=== PATIENT | male | born 1940 | race Caucasian/White ===

== ENCOUNTER 2016-06-09 07:16 | Day surgery (SDC) | payer OTHER ==
[~2016-06-09] VITALS: Ht 177.8 cm; Wt 77.9 kg
[~2016-06-09 07:16] MED LIST: ATEN50TA PO; HYDR-3533 PO; SIMV20TA PO; XARE20TA PO
[2016-06-09] MEDS ORDERED: ATOR40TA16 PO (07:46)
[2016-06-09] MEDS ORDERED: AMLO10TA2 PO (07:46)
[2016-06-09] MEDS ORDERED: LOSA50TA PO (07:46)
[2016-06-09 07:55] VITALS: BP 153/106; PULSE 82; RESP 16; TEMP 97.5; O2SAT 97
[2016-06-09 08:04] LABS: AUTOMATED NEUTROPHIL # 6.7 TH/MM3 (1.8-7.7); BASOPHIL % 0.2 % (0.0-2.0); EOSINOPHIL # 0.2 TH/MM3 (0-0.4); EOSINOPHIL % 2.1 % (0.0-4.0); HEMATOCRIT 45.4 % (39.0-51.0); HEMO FLAGS DIFF FINAL; LYMPH % 15.5 % (9.0-44.0); LYMPHOCYTE # 1.4 TH/MM3 (1.0-4.8); MEAN CORPUSCULAR HEMOGLOBIN 30.8 PG (27.0-34.0); MEAN CORPUSCULAR HGB CONC 33.8 % (32.0-36.0); MONO % 9.6 % (0.0-8.0); NEUT % 72.6 % (16.0-70.0); PLATELET COUNT 175 TH/MM3 (150-450); RED BLOOD COUNT 4.98 MIL/MM3 (4.50-5.90); RED CELL DISTRIBUTION WIDTH 14.1 % (11.6-17.2); WHITE BLOOD COUNT 9.3 TH/MM3 (4.0-11.0)
[2016-06-09 08:11] LABS: APTT (PATIENT) 27.3 SEC (24.3-30.1); PROTHROMBIN TIME - PATIENT 11.2 SEC (9.8-11.6)
[2016-06-09] MEDS ORDERED: NS 1000P @30 MLS/HR (KVO) IV SCH (08:15)
[2016-06-09] MEDS ORDERED: diphenhydrAMINE HCL 50 MG CAP PO SCH (08:15)
[2016-06-09 08:24] LABS: BICARBONATE 23.7 MEQ/L (21.0-32.0); POTASSIUM 3.8 MEQ/L (3.5-5.1)
[2016-06-09] MEDS ORDERED: HEPARIN-NS/PF INJ 500 ML ONE (11:22)
[2016-06-09] MEDS ORDERED: MIDAZOLAM HCL 2 MG/2 ML VIAL ONE (11:35)
[2016-06-09] MEDS ORDERED: HEPARIN SODIUM - IV 10,000 UNITS/10 ML VIAL ONE (12:01)
[2016-06-09] MEDS ORDERED: PROTAMINE SULFATE 50 MG/5 ML VIAL ONE (12:32)
[2016-06-09] MEDS ORDERED: LABETALOL HCL 100 MG/20 ML VIAL ONE (12:38)
[2016-06-09] MEDS ORDERED: ONDANSETRON HCL 4 MG/2 ML VIAL IV PRN (13:00)
[2016-06-09] MEDS ORDERED: ATROPINE SULFATE 1 MG/ML VIAL IV PRN (13:00)
[2016-06-09] MEDS ORDERED: SODIUM CHLORIDE 0.9% FLUSH 5 ML FLUSH IVF PRN (13:00)
[2016-06-09] MEDS ORDERED: MISC INFORMATION XX ONE (13:00)
--- NOTE | 2016-06-09 13:25 | MA ---
cc: LEONARDA MARION DATE: 06/09/2016 DATE OF : 1940 PROCEDURE PERFORMED 1. Left heart catheterization. 2. Selective right and left coronary angiography. 3. Left ventriculogram. INDICATION Positive nuclear stress test. PROCEDURE DESCRIPTION The consent was signed. The patient was brought into the cardiac laborer wrecking and salvaging in a fasting state. The right groin was prepped and draped in a sterile fashion. Using 1% lidocaine for local anesthesia and a micropuncture kit, a 5-German sheath was inserted into the right common femoral artery. Right common femoral artery angiography was performed to confirm position of the sheath. Then selective right and left coronary angiography was performed with a JR4 and a JL4. Angiography was taken in multiple views and an angled pigtail was introduced over a wire to the ventricle followed by pressure recordings, ventriculography and pullback. The patient tolerated the procedure well without complications. Estimated blood loss was less than 30 cc. Total contrast used was 100 cc. RESULTS LEFT VENTRICULOGRAPHY The left ventricular pressure was 149/19 with an LVEDP of 18. The aortic pressure was 157/105 with a mean of 129. The left ventricle has an anterior wall hypokinesis with ejection fraction estimated at 40-45%. CORONARY ANGIOGRAPHY 1. The right coronary artery is dominant giving off the PDA. The right coronary artery is patent with ALEC-III flow and nonobstructive coronary artery disease. The PDA is also patent and is giving collaterals to the LAD through the septals. 2. The left main is patent and long with nonobstructive coronary artery disease. 3. The LAD is 100% occluded after the first septal. The mid and distal LAD are filled with collaterals that come from the right coronary artery. Distally the LAD is transapical and it seems to be free of disease. 4. The circumflex is patent with nonobstructive CAD and ALEC-III flow. There is a prominent OM1 which is also patent with nonobstructive coronary artery disease. CONCLUSIONS 1. Single-vessel coronary artery disease. 2. LV systolic dysfunction. RECOMMENDATIONS Continue aggressive medical management for coronary artery disease. The patient will referred to CT surgery for consideration of bypass surgery, GUPTA to the LAD. Leonarda Marion MD SENIOR PAYROLL MANAGER/BT /12:55 PM /1:07 PM [email or web address]
[2016-06-09] MEDS ORDERED: oxyCODONE/ACETAMINOPHEN 5 MG/325 MG TAB PO ONE (14:00)
[2016-06-09] MEDS ORDERED: SODIUM CHLORIDE 0.9% FLUSH 5 ML FLUSH IV FLUSH PRN (14:30)
[2016-06-09] MEDS ORDERED: IOHEXOL 350 MG/ML 50 ML BTL (for Cath Lab) OTHER ONE (14:47)
[2016-06-09] MEDS ORDERED: IOHEXOL 350 MG/ML 100 ML BTL (for Cath Lab) OTHER ONE (14:47)
--- NOTE | 2016-06-09 14:59 | PD.CAR.PN ---
CVT Progress Note Subjective/Hospital Course: sts data discussed with pt RISK SCORES About the STS Risk Calculator Procedure: CAB Only Risk of Mortality: 1.2% Morbidity or Mortality: 10.725% Long Length of Stay: 3.887% Short Length of Stay: 49.191% Permanent Stroke: 0.603% Prolonged Ventilation: 5.897% DSW Infection: 0.286% Renal Failure: 1.71% Reoperation: 5.117% Objective: Vital Signs Date Time Temp Pulse Resp B/P Pulse Ox O2 Delivery O2 Flow Rate FiO2 06/09/16 14:56 Room Air 06/09/16 07:55 97.5 82 16 153/106 97 Labs: Laboratory Tests Test 06/09/16 07:15 White Blood Count 9.3 TH/MM3 (4.0-11.0) Red Blood Count 4.98 MIL/MM3 (4.50-5.90) Hemoglobin 15.3 GM/DL (13.0-17.0) Hematocrit 45.4 % (39.0-51.0) Mean Corpuscular Volume 91.0 FL (80.0-100.0) Mean Corpuscular Hemoglobin 30.8 PG (27.0-34.0) Mean Corpuscular Hemoglobin 33.8 % Concent (32.0-36.0) Red Cell Distribution Width 14.1 % (11.6-17.2) Platelet Count 175 TH/MM3 (150-450) Mean Platelet Volume 8.7 FL (7.0-11.0) Neutrophils (%) (Auto) 72.6 % (16.0-70.0) Lymphocytes (%) (Auto) 15.5 % (9.0-44.0) Monocytes (%) (Auto) 9.6 % (0.0-8.0) Eosinophils (%) (Auto) 2.1 % (0.0-4.0) Basophils (%) (Auto) 0.2 % (0.0-2.0) Neutrophils # (Auto) 6.7 TH/MM3 (1.8-7.7) Lymphocytes # (Auto) 1.4 TH/MM3 (1.0-4.8) Monocytes # (Auto) 0.9 TH/MM3 (0-0.9) Eosinophils # (Auto) 0.2 TH/MM3 (0-0.4) Basophils # (Auto) 0.0 TH/MM3 (0-0.2) CBC Comment DIFF FINAL Differential Comment Prothrombin Time 11.2 SEC (9.8-11.6) Prothromb Time International 1.0 RATIO Ratio Activated Partial 27.3 SEC Thromboplast Time (24.3-30.1) Sodium Level 142 MEQ/L (136-145) Potassium Level 3.8 MEQ/L (3.5-5.1) Chloride Level 109 MEQ/L (98-107) Carbon Dioxide Level 23.7 MEQ/L (21.0-32.0) Anion Gap 9 MEQ/L (5-15) Blood Urea Nitrogen 23 MG/DL (7-18) Creatinine 1.02 MG/DL (0.60-1.30) Estimat Glomerular Filtration 71 ML/MIN (>89) Rate Random Glucose 100 MG/DL (74-106) Calcium Level 8.7 MG/DL (8.5-10.1) Result Diagram: 06/09/16 0715 06/09/16 0715 Isabella Wolfe Jun 09, 2016 14:59
[2016-06-09 16:44] LABS: BLOOD, URINE NEG (NEG); GLUCOSE,URINE NEG (NEG); KETONE, URINE NEG (NEG); MUCUS URINE FEW /lpf (OCC); PH, URINE 5.5 (5.0-8.5); URINE COLOR YELLOW (YELLW/STRAW)
[2016-06-09 16:50] LABS: COMMENT (UR) CATH-CULTURE IND; CULTURE IF INDICATED CATH CULTURE IND; NITRITE,URINE POS (NEG)
--- NOTE | 2016-06-09 17:30 | RADRPT ---
EXAM DATE/TIME: 06/09/2016 16:03 [facility] COMPARISON: No previous studies available for comparison. INDICATIONS : Preop cardiac surgery. MEDICAL HISTORY : Hypercholesterolemia. Hypertension. Renal calculi. Glaucoma. CAD. Dyspnea. Gallstones. Depression. SURGICAL HISTORY : Surgery for kidney stone removal/uretheral stent placement. Left knee surgery. ENCOUNTER: Initial ACUITY: 1 day PAIN SCORE: 4/10 LOCATION: Bilateral neck PEAK SYSTOLIC VELOCITIES (cm/sec): ICA/CCA RATIO: Right: 1.2 Left: 0.8 ICA: Right: 40 Left: 41 CCA: Right: 33 Left: 54 ECA: Right: 49 Left: 50 VERTEBRAL: Right: 37 antegrade Left: 23 antegrade Elevated flow velocities and ICA/CCA ratios have been found to correlate with increased degrees of vessel stenosis, calculated as percentage of diameter relative to a normal segment of distal ICA/CCA FINDINGS: Ultrasound of the carotid arteries was performed bilaterally using real-time Doppler and color Dopple r imaging. Examination of the right carotid artery demonstrates mild fibrous plaque within the bifurcation. No w aveform abnormalities are identified and no spectral broadening is seen. Examination of the left granados tid artery demonstrates mild fibrous plaque within the bulb. No waveform abnormalities are identified and no spectral broadening is seen. There is antegrade flow in both vertebral arteries. CONCLUSION: No evidence of hemodynamically significant lesion. Ilir Thakkar MD on June 09, 2016 at 17:28 Board Certified Radiologist. This report was verified electronically.
--- NOTE | 2016-06-09 17:33 | RADRPT ---
EXAM DATE/TIME: 06/09/2016 17:09 [facility] COMPARISON: CHEST PA & LAT, July 15, 2014, 9:48. INDICATIONS : Pre op for CABG. MEDICAL HISTORY : Unobtainable SURGICAL HISTORY : unobtainable ENCOUNTER: Initial ACUITY: 1 day PAIN SCORE: Non-responsive. LOCATION: Bilateral upper chest FINDINGS: Mild left base atelectasis. Otherwise, mild diffuse interstitial prominence. No pleural effusion seen . No pneumothorax. Heart size stable, mildly enlarged. CONCLUSION: Suspected mild acute failure. Also mild left base atelectasis. Manohar Camilo MD on June 09, 2016 at 17:30 Board Certified Radiologist. This report was verified electronically.
--- NOTE | 2016-06-09 18:28 | EKG ---
Date Performed: 06/09/2016 Time Performed: 07:56:24 PTAGE: 75 years EKG: Atrial fibrillation Possible septal infarct - age undetermined Abnormal ECG PREVIOUS TRACING : 08/04/2014 07.44 DOCTOR: Francesco Kaplan Interpretating Date/Time 06/09/2016 18:26:48
[2016-06-09] MEDS ORDERED: SODIUM CHLORIDE 0.9% FLUSH 5 ML FLUSH IVF SCH (21:00)
[2016-06-09] MEDS ORDERED: SODIUM CHLORIDE 0.9% FLUSH 5 ML FLUSH IV FLUSH SCH (21:00)
--- NOTE | 2016-06-10 08:55 | MB ---
cc: NI VICTOR DATE OF CONSULTATION: 06/09/2016 HISTORY OF PRESENT ILLNESS A 75-year-old male who speaks only Kazakh, from [place]. His is at the bedside to assist with translation, followed by Dr. Lyndon Cheung, history of atrial fibrillation, hyperlipidemia, hypertension. He has been complaining of some mild to moderate chest discomfort that started a few weeks ago that lasts only minutes, felt like it was indigestion and non-radiating, not associated with stress, meals, denied any shortness of breath, palpitations. Risk factors include age, hypertension, former smoker, hyperlipidemia. The patient underwent cardiac cath today by Dr. Crook for a positive stress test and had 100% proximal LAD, EF of 40%. Prior to that he also had a 2-D echocardiogram in the office which showed left atrium moderately dilated, mild to moderate aortic regurgitation, mitral valve had some moderate regurgitation with an eccentric jet, mild regurgitation in the tricuspid valve, RV pressures at 34 mmHg, EF on the echo showed 55-60, grade 3 diastolic dysfunction. PAST MEDICAL HISTORY 1. Hypertension. 2. Hyperlipidemia. 3. Atrial fibrillation on Xarelto. PAST SURGICAL HISTORY 1. Right arm surgery. 2. Bladder surgery. 3. Left knee arthroscopic surgery. ALLERGIES No known allergies. MEDICATION Home meds include: 1. Amlodipine 10 p.o. daily. 2. Flexeril p.r.n. 3. Losartan 50 p.o. daily. 4. Omeprazole. 5. Simvastatin. 6. Xarelto 20 p.o. daily. 7. Flomax. FAMILY HISTORY Father from pneumonia at age 112. Mother at age 70 from pneumonia. The patient is , has three children. Originally from [place]. Worked in the [employer] business. Smoked for approximately 20 years, quit 32 years ago. REVIEW OF SYSTEMS GENERAL: No night sweats, fever, heat and cold intolerance. SKIN: No psoriasis, itching or hives. HEENT: No blurred vision, hearing loss. RESPIRATORY: No cough, shortness of breath. CARDIOVASCULAR: As above in HPI. GASTROINTESTINAL: No diarrhea, vomiting. GENITOURINARY: No burning, frequency, urgency. BALANCE WHEEL MOTION INSPECTOR: No history of TIA, CVA, seizure disorder. ENDOCRINOLOGY: No history of diabetes and/or hypothyroidism. PHYSICAL EXAMINATION VITAL SIGNS: Blood pressure 150/100, heart rate of 82, afebrile. GENERAL: Patient is awake, alert, in no acute distress. HEENT: Head is normocephalic, atraumatic. Pupils equal and reactive. Oral mucosa pink, moist. NECK: Supple. No JVD. CARDIAC: Heart sounds S1-S2. A grade 2-3/6 systolic murmur best known to the left sternal border. LUNGS: Clear to auscultation. No wheezes, rales or rhonchi. ABDOMEN: Soft, nontender. No masses or organomegaly. EXTREMITIES: No cyanosis, clubbing or edema. LABORATORY DATA Lab work shows hemoglobin of 15, hematocrit of 45, white cell count 9.3, platelet count 175. Sodium 142, potassium 3.8, BUN of 23, creatinine 1.02. IMPRESSION This is a 75-year-old male with positive stress test and underwent cardiac cath with a proximal LAD stenosis of 100%, EF of 40%. Procedures, alternatives and risks to be discussed by Dr. Ni Victor. He will see the patient in the office in the a.m. to schedule for pending surgery. Will also obtained the 2-D echo disk from [facility] to evaluate in lieu of this moderate mitral regurgitation. STS data will be discussed and documented in the electronic record. Dictated by: JEROME Heath MD JACQUELIN Mccoy/TRUONG /2:46 PM /8:43 AM
--- NOTE | 2016-06-10 13:15 | EKG ---
Date Performed: 06/09/2016 Time Performed: 15:05:50 PTAGE: 75 years EKG: Atrial fibrillation with slow ventricular response Poor R wave progression - probable shantanu l variant Extensive ST-T changes are nonspecific T WAVE FLATTENING NEW SINCE THE PRIOR TRACING Abnorm al ECG PREVIOUS TRACING : 06/09/2016 07.56 DOCTOR: Elier Henderson Interpretating Date/Time 06/10/2016 13:14:09
[2016-06-10 14:53] LABS: HEMOGLOBIN A1a 0.9 %; HEMOGLOBIN A1b 1.4 %; HEMOGLOBIN Ao 87.4 %; HEMOGLOBIN LA1C 1.3 %; HEMOGLOBIN P3 3.5 %
--- NOTE | 2016-06-24 10:10 | RSPPFT ---
DATE OF PROCEDURE: 06/09/16 COMMENTS: Spirometry with FVC of 2.6, FEV1 of 2.1, FEV1/FVC ratio at 79%. IMPRESSION: 1. Mild reduction in flow rates. 2. No evidence of airways obstruction. 3. If clinically warranted, lung volumes may be helpful.
== END 2016-06-09 18:00 | disposition home or self-care (01) ==
LOC: HDIC 07:16 → HDOC 07:16
PROVIDERS: ATTEND Radiology Vascular & Interventional Radiology
DX: I25.10 Atherosclerotic heart disease of native coronary artery without angina pectoris (principal); I48.91 Unspecified atrial fibrillation; I34.0 Nonrheumatic mitral (valve) insufficiency; I25.82 Chronic total occlusion of coronary artery; I10 Essential (primary) hypertension; E78.5 Hyperlipidemia, unspecified; Z79.01 Long term (current) use of anticoagulants; Z79.899 Other long term (current) drug therapy
CPT/HCPCS: 71020; 80048; 81001; 83036; 85025; 85610; 85730; 87086; 87641; 93005; 93458; 93880; 94010; C1760; C1769; C1887; C1893; G0269; J1644; J2250; J2720; J3010; Q9967

== ENCOUNTER 2016-06-15 15:00 | Inpatient (IN) | payer OTHER, MEDICARE ==
[~2016-06-15] VITALS: Ht 177.8 cm; Wt 80.3 kg
[~2016-06-15 15:00] MED LIST changes: +AMLO10TA2 PO; -ATEN50TA PO; +ATOR40TA16 PO; -HYDR-3533 PO; +LOSA50TA PO; -SIMV20TA PO
[2016-06-22] VITALS (20 sets, daily range): BP systolic 115–149; BP diastolic 67–108; PULSE 62–94; RESP 16–20; TEMP 97.4–98.2; O2SAT 94–98
[2016-06-22] MEDS ORDERED: PROTAMINE SULFATE 250 MG/25 ML VIAL IV ONE ×2 (05:00→10:02)
[2016-06-22] MEDS ORDERED: MAGNESIUM SULFATE 1000 MG/2 ML VIAL (PED) IV ONE (05:00)
[2016-06-22] MEDS ORDERED: AMINOCAPROIC ACID INJ 250 MG/ML 20 ML VIAL IV ONE (05:00)
[2016-06-22] MEDS ORDERED: DEXMEDETOMIDINE INJ 50 ML IV ONE (05:00)
[2016-06-22] MEDS ORDERED: DEXTROSE 5% IN WATER 100ML INJ 100 ML IV ONE (05:00)
[2016-06-22] MEDS ORDERED: PHENYLEPHRINE HCL 10 MG/ML VIAL IV ONE (05:00)
[2016-06-22] MEDS ORDERED: CALCIUM CHLORIDE 10% SOLN 1 GRAM/10 ML SYR IV ONE (05:00)
[2016-06-22] MEDS ORDERED: HEPARIN SODIUM - SQ 10,000 UNITS/ML VIAL SQ ONE (05:00)
[2016-06-22] MEDS ORDERED: VANCOMYCIN HCL 1000 MG VIAL ONE (06:10)
[2016-06-22] MEDS ORDERED: ceFAZolin 2 GM PREMIX 50 ML ONE (06:10)
[2016-06-22] MEDS ORDERED: methylPREDNISolone SOD SUCC 125 MG/2 ML VIAL ONE (06:11)
[2016-06-22] MEDS ORDERED: HEPARIN SODIUM - SQ 10,000 UNITS/ML VIAL ONE (06:11)
[2016-06-22] MEDS: LACTATED RINGER'S 1000 ML IV SCH (06:15)
[2016-06-22] MEDS ORDERED: METOPROLOL TARTRATE 25 MG TAB ONE (06:23)
[2016-06-22] MEDS ORDERED: PERC10TA27 PO (06:28)
[2016-06-22] MEDS ORDERED: PAPAVERINE 60 MG-NITROGLYCERIN 100 MCG-DILTIAZEM 100 MG in NS 100 ML IRRIGATION SCH ×4 (06:45)
[2016-06-22] MEDS ORDERED: CHLORHEXIDINE GLUCONATE 4% SOLN 120 ML BTL TOPICAL SCH (06:45)
[2016-06-22] MEDS ORDERED: CEFAZOLIN 500 MG in NS IRR BTL 500 ML IRRIGATION SCH (06:45)
[2016-06-22] MEDS ORDERED: ceFAZolin 2 GM PREMIX 50 ML IV SCH (06:45)
[2016-06-22] MEDS ORDERED: METOPROLOL TARTRATE 25 MG TAB PO SCH (06:45)
[2016-06-22] MEDS ORDERED: INSULIN REGULAR 100 UNITS in NS 100 ML IV SCH (06:45)
[2016-06-22] MEDS ORDERED: SODIUM CHLORIDE 0.9% FLUSH 10 ML FLUSH IV FLUSH PRN ×2 (06:45)
[2016-06-22] MEDS: SODIUM CHLORID 0.9% 500 ML IV SCH ×3 (06:45→20:48)
[2016-06-22] MEDS ORDERED: INSULIN HUMAN REGULAR 1,000 UNITS/10 ML VIAL SQ PRN (06:45)
[2016-06-22] MEDS ORDERED: ALBUMIN HUMAN 25% 12.5 GM/50 ML BAGP IV ONE (07:03)
[2016-06-22] MEDS ORDERED: CARDIOPLEGIC IRR 1,000 ML ONE (07:03)
[2016-06-22] MEDS ORDERED: SODIUM BICARBONATE 8.4% INJ 50 ML ONE (07:04)
[2016-06-22] MEDS ORDERED: MANNITOL INJ 50 ML ONE (07:04)
[2016-06-22] MEDS ORDERED: HEPARIN SODIUM - IV 10,000 UNITS/10 ML VIAL ONE (07:04)
[2016-06-22] MEDS ORDERED: CALCIUM CHLORIDE 10% SOLN 1 GRAM/10 ML SYR ONE (07:05)
[2016-06-22] MEDS ORDERED: POTASSIUM CHLORIDE 20 MEQ/10 ML VIAL ONE ×2 (07:05)
[2016-06-22] MEDS: MUPIROCIN 2% OINT 22 GM TUBE EACH NARE SCH ×2 (09:00→21:00)
[2016-06-22] MEDS ORDERED: LACTATED RINGER'S 1000 ML INJ 500 ML IV PRN (10:08)
[2016-06-22] MEDS ORDERED: POTASSIUM CHLOR 20 MEQ PREMIX 100 ML IV PRN ×3 (10:15)
[2016-06-22] MEDS ORDERED: hydrALAZINE HCL 20 MG/ML VIAL IV PRN (10:15)
[2016-06-22] MEDS ORDERED: POTASSIUM CHLORIDE 20 MEQ CONTROLLED RELEASE TAB PO PRN ×2 (10:15)
[2016-06-22] MEDS ORDERED: METOPROLOL TARTRATE 5 MG/5 ML VIAL IV PUSH PRN (10:15)
[2016-06-22] MEDS ORDERED: ONDANSETRON HCL 4 MG/2 ML VIAL IV PUSH PRN (10:15)
[2016-06-22] MEDS ORDERED: INSULIN REGULAR (IV INFUSION) 100 UNITS in SODIUM CHLORIDE 0.9% INJ 99 ML IV SCH (10:15)
[2016-06-22] MEDS ORDERED: MAGNESIUM SULFATE INJ 2 GM in SODIUM CHLORIDE 0.9% INJ 100 ML IV PRN ×4 (10:15)
[2016-06-22] MEDS ORDERED: Post-op Orders (for Pharmacy) MISC OTHER ONE (10:15)
[2016-06-22] MEDS ORDERED: ACETAMINOPHEN 325 MG TAB PO PRN (10:15)
[2016-06-22] MEDS ORDERED: SODIUM CHLORIDE 0.9% FLUSH 10 ML FLUSH IVF PRN (10:15)
[2016-06-22] MEDS ORDERED: CALCIUM CHLORIDE 10% 1 GRAM/10 ML VIAL IV PRN (10:15)
[2016-06-22] MEDS ORDERED: ACETAMINOPHEN 650 MG SUPP RECTAL PRN (10:15)
[2016-06-22] MEDS ORDERED: DEXTROSE 50% IN WATER 50 ML VIAL(D50) IV PUSH PRN (10:15)
--- NOTE | 2016-06-22 10:17 | PD.OP ---
cc: Francesco Kaplan MD; Ni Victor MD Operative Report Date of Surgery: Jun 22, 2016 Preoperative Diagnosis: (1) CAD (coronary artery disease) (2) IL, acute, non ST segment elevation Postoperative Diagnosis: same Procedure: CABG x 1 GUPTA to LAD Anesthesia: Dr. Thompson Surgeon: Ni Victor Biomedical Engineering Professor(s): Noé Tse Operation and Findings: The risks, benefits, complications, treatment options, and expected outcomes were discussed with the patient. The possibilities of reaction to medication, pulmonary aspiration, perforation of viscus, bleeding, recurrent infection, the need for additional procedures, failure to diagnose a condition, and creating a complication requiring transfusion or operation were discussed with the patient. The patient concurred with the proposed plan, giving informed consent. The site of surgery properly noted/marked. The patient was taken to Operating Room, identified as Fortunato Fleitas and the procedure verified as CABG, ANA. A Time Out was held and the above information confirmed. Standard monitoring lines and Espino catheter were placed. General anesthesia was induced. The patient was prepped and draped in a sterile fashion. A median sternotomy was performed and electrocautery was used to obtain hemostasis. The left internal mammary artery was procured as a pedicle from the 7th rib to the 1st rib in the usual manner. The patient was heparinized for cardiopulmonary bypass and the distal mammary pedicle was instrumented for anastomosis. The heart was instrumented for cardiopulmonary bypass in the usual manner. Antegrade blood cardioplegia was employed. The patient was placed on cardiopulmonary bypass. An aortic cross-clamp was applied and the heart was arrested using cold blood cardioplegia. Antegrade cardioplegia was administered after he each anastomosis. After adequate arrest, the distal LAD was opened with a [place] blade and found to be a 1.5 millimeter good target. The left internal mammary artery was approximated to the LAD using a running 7 0 Prolene suture. The pedicle was attached to the epicardium using interrupted 5 0 silk suture. The patient was systemically rewarmed and received a hotshot dose of warm blood cardioplegia. The cross-clamp was removed and all proximal and distal anastomoses were examined for hemostasis. The patient was weaned from cardiopulmonary bypass. Protamine was given. There was no adverse reaction. Decannulation was carried out without incident. Wound was checked for hemostasis which was obtained using electrocautery. A 36 German mediastinal and 32 German left pleural chest was were placed and secured to the skin with 0 silk suture. The sternum was closed with stainless steel wire. The fascia was closed with 1. PDS. The subcutaneous tissue was closed using a running 2-0 Vicryl suture. The skin was closed with 4-0 Monocryl. Sterile dressings were placed. At the end of the operation, all sponge, instruments, and needle counts were correct. The patient was transferred to the CICU in stable condition. Findings: good distal target. Moderate MR and mild AI noted on ANA which has been asymptomatic with normal filling pressures. XC: 14 min CPB: 23 min Drains: mediastinal x 1 pleural x1 Complications: none Disposition: to CVICU in stable condition Ni Victor MD Jun 22, 2016 10:17
[2016-06-22] MEDS ORDERED: MIDAZOLAM HCL 5 MG/5 ML VIAL ONE ×2 (11:07)
[2016-06-22] MEDS ORDERED: fentaNYL CITRATE 1000 MCG/20 ML VIAL ONE (11:08)
[2016-06-22] MEDS: ACETAMINOPHEN 1000 MG/100 ML VIAL IV SCH ×2 (11:43→16:40)
[2016-06-22] MEDS ORDERED: CALCIUM CHLORIDE INJ 1 GM in SODIUM CHLORIDE 0.9% INJ 100 ML IV PRN (12:00)
[2016-06-22] MEDS ORDERED: CLEVIDIPINE INJ 50 ML IV SCH (12:00)
--- NOTE | 2016-06-22 12:22 | RADRPT ---
EXAM DATE/TIME: 06/22/2016 11:25 [facility] COMPARISON: CHEST SINGLE AP, February 11, 2013, 13:17. INDICATIONS : Status post CABG. MEDICAL HISTORY: None. SURGICAL HISTORY: None. ENCOUNTER: Initial ACUITY: 1 day PAIN SCORE: 8/10 LOCATION: Bilateral chest FINDINGS: The endotracheal tube has its tip in good position 2-3 cm above the tomer. A nasogastric tube has i ts tip below the diaphragm. Mediastinal drain and left chest tube are in good positions. There is n o pneumothorax. A right internal jugular vascular sheath and catheter are noted with its tip in the superior vena cava. Median sternotomy wires are noted status post cardiac surgery. The heart is min imally prominent. The pulmonary vascular pattern is normal. The lungs are relatively clear with minim al bibasilar atelectasis noted. CONCLUSION: 1. Multiple tubes and lines are in good positions. 2. Mild cardiomegaly. 3. Minimal bibasilar atelectasis. Dereje Aranda MD on June 22, 2016 at 12:03 Board Certified Radiologist. This report was verified electronically.
[2016-06-22] MEDS ORDERED: RESP: RACEPINEPHRINE 2.25% 0.5 ML NEB NEB PRN (15:15)
[2016-06-22] MEDS ORDERED: RESP: ALBUTEROL 2.5 MG/IPRATROPIUM 0.5 MG NEB (PRN) NEB (15:15)
[2016-06-22] MEDS: RESP: ALBUTEROL 2.5 MG/IPRATROPIUM 0.5 MG NEB (SCH) NEB ×2 (16:22→21:28)
[2016-06-22] MEDS: SODIUM CHLORIDE 0.9% FLUSH 10 ML FLUSH IV FLUSH SCH (20:48)
[2016-06-22] MEDS: ATORVASTATIN 40 MG TAB PO SCH (20:48)
[2016-06-23] VITALS (15 sets, daily range): BP systolic 103–131; BP diastolic 66–90; PULSE 64–98; RESP 17–18; TEMP 97–98.7; O2SAT 92–97
[2016-06-23] MEDS: ACETAMINOPHEN 1000 MG/100 ML VIAL IV SCH ×2 (00:46→05:24)
--- NOTE | 2016-06-23 02:56 | RADRPT ---
EXAM DATE/TIME: 06/23/2016 02:31 [facility] COMPARISON: CHEST SINGLE AP, June 22, 2016, 11:25. INDICATIONS : Shortness of breath. MEDICAL HISTORY : None. SURGICAL HISTORY : CABG. ENCOUNTER: Initial ACUITY: 1 day PAIN SCORE: Non-responsive. LOCATION: Bilateral chest FINDINGS: Left chest tube, mediastinal tube and right jugular lines are again noted. Sternotomy wires are seen. There is patchy left lower lobe airspace disease. A tiny left apical pneumothorax is noted. CONCLUSION: Tiny left apical pneumothorax suspected. Left lower lobe airspace disease. Gerard Ramirez MD on June 23, 2016 at 2:54 Board Certified Radiologist. This report was verified electronically.
[2016-06-23] MEDS: RESP: ALBUTEROL 2.5 MG/IPRATROPIUM 0.5 MG NEB (SCH) NEB ×3 (03:25→21:10)
[2016-06-23] MEDS: LACTATED RINGER'S 1000 ML IV SCH (04:59)
[2016-06-23 05:22] LABS: HEMATOCRIT 40.4 % (39.0-51.0); MEAN CELL VOLUME 91.5 FL (80.0-100.0); MEAN CORPUSCULAR HEMOGLOBIN 30.4 PG (27.0-34.0); MEAN CORPUSCULAR HGB CONC 33.3 % (32.0-36.0); PLATELET COUNT 128 TH/MM3 (150-450); RED BLOOD COUNT 4.41 MIL/MM3 (4.50-5.90); RED CELL DISTRIBUTION WIDTH 13.7 % (11.6-17.2); REVIEW FLAG FINAL; WHITE BLOOD COUNT 15.2 TH/MM3 (4.0-11.0)
[2016-06-23] MEDS: oxyCODONE/ACETAMINOPHEN 10 MG/325 MG TAB PO PRN ×3 (05:24→20:59)
[2016-06-23] MEDS: PANTOPRAZOLE SOD 40 MG DELAYED RELEASE TAB PO SCH (05:24)
[2016-06-23 05:55] LABS: BICARBONATE 22.1 MEQ/L (21.0-32.0); MAGNESIUM 1.9 MG/DL (1.5-2.5); POTASSIUM 4.4 MEQ/L (3.5-5.1)
[2016-06-23] MEDS ORDERED: MAGNESIUM SULFATE 1 GM PREMIX 100 ML ONE (07:28)
[2016-06-23] MEDS: SODIUM CHLORIDE 0.9% FLUSH 10 ML FLUSH IV FLUSH SCH ×2 (09:00→20:59)
[2016-06-23] MEDS ORDERED: GLUCAGON 1 MG/ML VIAL OTHER PRN (09:00)
[2016-06-23] MEDS: MUPIROCIN 2% OINT 22 GM TUBE EACH NARE SCH ×2 (09:00→21:00)
[2016-06-23] MEDS ORDERED: DEXTROSE 50% IN WATER 50 ML VIAL(D50) IV PRN (09:00)
[2016-06-23] MEDS ORDERED: BISACODYL 10 MG SUPP RECTAL PRN (09:00)
[2016-06-23] MEDS ORDERED: SOD PHOSPHATE/SOD BIPHOSPHATE (ADULT) ENEMA 133ML RECTAL PRN (09:00)
[2016-06-23] MEDS: ASPIRIN 81 MG CHEW TAB PO SCH (09:01)
--- NOTE | 2016-06-23 09:17 | EKG ---
Date Performed: 06/23/2016 Time Performed: 05:43:52 PTAGE: 75 years EKG: Sinus rhythm with PAC(s) Inferior T wave changes are nonspecific Borderline ECG PREVIOUS TRACING : 06/09/2016 15.05 DOCTOR: Bi Saprks Interpretating Date/Time 06/23/2016 09:16:33
[2016-06-23] MEDS ORDERED: PILL SPLITTER OTHER PRN (09:45)
[2016-06-23] MEDS: METOPROLOL TARTRATE 25 MG TAB PO SCH ×2 (09:52→20:59)
[2016-06-23] MEDS: MULTIVITAMINS/MINERALS THERAPEUTIC TAB PO SCH (09:52)
[2016-06-23] MEDS: INSULIN ASPART SUPPLEMENTAL SCALE SQ SCH ×4 (09:52→21:21)
[2016-06-23] MEDS: MAGNESIUM HYDROXIDE SUSP 30 ML CUP PO SCH (09:53)
[2016-06-23] MEDS ORDERED: FUROSEMIDE 20 MG/2 ML VIAL IV PUSH ONE (10:00)
[2016-06-23] MEDS ORDERED: POTASSIUM CHLORIDE 10 MEQ CONTROLLED RELEASE TAB PO ONE (10:00)
--- NOTE | 2016-06-23 16:21 | PD.CAR.PN ---
CVT Progress Note CVT: POD #: 1 Subjective/Hospital Course: 75/ male c/o of chest pain couple of weeks , indigestion -like quality , underwent Heart cath 100% LAD EF 40% PMH: chronic AFIB ( on xarelto at home) , HLP, HTN , mod MR surgery 06/22 CABG x 1 GUPTA to LAD 06/23 doing well, up in chair, no pressors rhythm stable / afib rate controlled on nasal cannula will transfer to stepdown unit Objective: GENERAL: SKIN: Warm and dry./ prevena dressing to chest HEAD: Normocephalic. EYES: No scleral icterus. No injection or drainage. NECK: Supple, trachea midline. No JVD or lymphadenopathy. CARDIOVASCULAR: Regular rate and rhythm without murmurs, gallops, or rubs. RESPIRATORY: Breath sounds equal bilaterally. No accessory muscle use. GASTROINTESTINAL: Abdomen soft, non-tender, nondistended. MUSCULOSKELETAL: No cyanosis, or edema. BACK: Nontender without obvious deformity. No CVA tenderness. Vital Signs Date Time Temp Pulse Resp B/P Pulse Ox O2 Delivery O2 Flow Rate FiO2 06/23/16 15:31 84 06/23/16 15:30 98.0 95 18 109/73 92 06/23/16 12:00 95 Nasal Cannula 4.00 06/23/16 11:02 98.2 95 18 116/66 92 06/23/16 11:02 95 06/23/16 09:08 Arterial Line 06/23/16 08:58 98.2 80 17 104/68 94 120/78 06/23/16 08:00 95 Nasal Cannula 5.00 06/23/16 07:18 92 Nasal Cannula 5.00 06/23/16 07:00 98.3 81 18 103/66 92 117/68 06/23/16 07:00 71 06/23/16 04:00 95 Nasal Cannula 4.00 06/23/16 03:00 98.0 90 17 120/77 95 128/71 06/23/16 03:00 92 06/23/16 00:00 95 Nasal Cannula 4.00 06/22/16 23:37 98.2 93 17 136/73 95 115/68 06/22/16 23:37 85 06/22/16 21:31 95 Nasal Cannula 5.00 06/22/16 20:28 95 Nasal Cannula 4.00 06/22/16 19:17 98.0 94 18 135/92 95 119/67 06/22/16 19:00 94 06/22/16 18:14 76 06/22/16 17:10 14 06/22/16 17:02 76 06/22/16 16:22 95 Nasal Cannula 4.00 Labs: Laboratory Tests Test 06/23/16 04:31 White Blood Count 15.2 TH/MM3 (4.0-11.0) Red Blood Count 4.41 MIL/MM3 (4.50-5.90) Hemoglobin 13.4 GM/DL (13.0-17.0) Hematocrit 40.4 % (39.0-51.0) Mean Corpuscular Volume 91.5 FL (80.0-100.0) Mean Corpuscular Hemoglobin 30.4 PG (27.0-34.0) Mean Corpuscular Hemoglobin 33.3 % Concent (32.0-36.0) Red Cell Distribution Width 13.7 % (11.6-17.2) Platelet Count 128 TH/MM3 (150-450) Mean Platelet Volume 9.2 FL (7.0-11.0) Sodium Level 141 MEQ/L (136-145) Potassium Level 4.4 MEQ/L (3.5-5.1) Chloride Level 108 MEQ/L (98-107) Carbon Dioxide Level 22.1 MEQ/L (21.0-32.0) Anion Gap 11 MEQ/L (5-15) Blood Urea Nitrogen 21 MG/DL (7-18) Creatinine 0.95 MG/DL (0.60-1.30) Estimat Glomerular Filtration 77 ML/MIN (>89) Rate Random Glucose 123 MG/DL (74-106) Calcium Level 8.5 MG/DL (8.5-10.1) Magnesium Level 1.9 MG/DL (1.5-2.5) Result Diagram: 06/23/1643006/23/16430 Telemetry: afib (1) Hyperlipemia (2) CAD (coronary artery disease) (3) S/P CABG x 1 Plan: ASA, statin , BB pulm toileting, OOB ambulate gentle diuresis (4) Hyperlipemia Plan: on statin (5) Hypertension Plan: controlled Isabella Wolfe Jun 23, 2016 16:21
[2016-06-23] MEDS: KETOROLAC TROMETHAMINE 30 MG/ML (IVP) VIAL IV PUSH PRN (17:41)
[2016-06-23] MEDS: DOCUSATE SODIUM 100 MG CAP PO SCH (20:59)
[2016-06-23] MEDS: ATORVASTATIN 40 MG TAB PO SCH (20:59)
[2016-06-23] MEDS: SENNOSIDES 8.6 MG TAB PO SCH (20:59)
[2016-06-24] VITALS (31 sets, daily range): BP systolic 108–182; BP diastolic 70–112; PULSE 61–112; RESP 17–18; TEMP 97.3–98.9; O2SAT 94–98
[2016-06-24] MEDS: KETOROLAC TROMETHAMINE 30 MG/ML (IVP) VIAL IV PUSH PRN ×3 (01:40→16:23)
[2016-06-24] MEDS: INSULIN ASPART SUPPLEMENTAL SCALE SQ SCH ×5 (02:00→20:57)
[2016-06-24] MEDS: PANTOPRAZOLE SOD 40 MG DELAYED RELEASE TAB PO SCH (05:45)
[2016-06-24] MEDS: oxyCODONE/ACETAMINOPHEN 10 MG/325 MG TAB PO PRN ×3 (05:49→20:53)
[2016-06-24 06:49] LABS: AUTOMATED NEUTROPHIL # 10.3 TH/MM3 (1.8-7.7); BASOPHIL % 0.2 % (0.0-2.0); EOSINOPHIL # 0.1 TH/MM3 (0-0.4); HEMATOCRIT 35.7 % (39.0-51.0); HEMO FLAGS DIFF FINAL; LYMPH % 8.1 % (9.0-44.0); MEAN CELL VOLUME 91.9 FL (80.0-100.0); MEAN CORPUSCULAR HEMOGLOBIN 30.1 PG (27.0-34.0); MEAN CORPUSCULAR HGB CONC 32.7 % (32.0-36.0); MONO % 10.9 % (0.0-8.0); NEUT % 79.8 % (16.0-70.0); PLATELET COUNT 116 TH/MM3 (150-450); RED BLOOD COUNT 3.89 MIL/MM3 (4.50-5.90); RED CELL DISTRIBUTION WIDTH 13.8 % (11.6-17.2); WHITE BLOOD COUNT 12.9 TH/MM3 (4.0-11.0)
[2016-06-24 07:06] LABS: BICARBONATE 28.3 MEQ/L (21.0-32.0); MAGNESIUM 2.2 MG/DL (1.5-2.5); POTASSIUM 4.1 MEQ/L (3.5-5.1)
[2016-06-24] MEDS: RESP: ALBUTEROL 2.5 MG/IPRATROPIUM 0.5 MG NEB (SCH) NEB ×3 (07:38→19:32)
[2016-06-24] MEDS: MUPIROCIN 2% OINT 22 GM TUBE EACH NARE SCH ×2 (09:00→20:48)
[2016-06-24] MEDS: SODIUM CHLORIDE 0.9% FLUSH 10 ML FLUSH IV FLUSH SCH ×2 (09:00→20:54)
[2016-06-24] MEDS: POLYETHYLENE GLYCOL 17 GM PKG PO SCH (09:47)
[2016-06-24] MEDS: MULTIVITAMINS/MINERALS THERAPEUTIC TAB PO SCH (09:48)
[2016-06-24] MEDS: DOCUSATE SODIUM 100 MG CAP PO SCH ×2 (09:48→20:54)
[2016-06-24] MEDS: ASPIRIN 81 MG CHEW TAB PO SCH (09:48)
[2016-06-24] MEDS: MAGNESIUM HYDROXIDE SUSP 30 ML CUP PO SCH (09:48)
[2016-06-24] MEDS: METOPROLOL TARTRATE 25 MG TAB PO SCH ×2 (09:49→20:53)
--- NOTE | 2016-06-24 10:44 | PD.CAR.PN ---
CVT Progress Note CVT: POD #: 2 Subjective/Hospital Course: 75/ male c/o of chest pain couple of weeks , indigestion -like quality , underwent Heart cath 100% LAD EF 40% PMH: chronic AFIB ( on xarelto at home) , HLP, HTN , mod MR surgery 06/22 CABG x 1 GUPTA to LAD 06/23 doing well, up in chair, no pressors rhythm stable / afib rate controlled on nasal cannula will transfer to stepdown unit 06/24 remains in afib leave chest tube in today/ drained 180cc/ 12 hrs start xarelto when chest tubes out OOB/ ambulate pulm toileting Objective: GENERAL: SKIN: Warm and dry./ prevena to chest / HEAD: Normocephalic. EYES: No scleral icterus. No injection or drainage. NECK: Supple, trachea midline. No JVD or lymphadenopathy. CARDIOVASCULAR: Regular rate and rhythm without murmurs, gallops, or rubs. RESPIRATORY:diminished in bases / chest tube to wall suction/ no air leak Breath sounds equal bilaterally. No accessory muscle use. GASTROINTESTINAL: Abdomen soft, non-tender, nondistended. MUSCULOSKELETAL: No cyanosis, or edema. BACK: Nontender without obvious deformity. No CVA tenderness. Vital Signs Date Time Temp Pulse Resp B/P Pulse Ox O2 Delivery O2 Flow Rate FiO2 06/24/16 07:38 96 Nasal Cannula 4.00 06/24/16 06:16 74 06/24/16 05:00 72 06/24/16 04:55 73 06/24/16 04:40 97.5 70 108/70 96 06/24/16 03:17 Nasal Cannula 4.00 40 06/24/16 03:00 61 06/24/16 02:00 66 06/24/16 01:00 68 06/24/16 00:00 68 06/23/16 23:00 Nasal Cannula 4.00 40 06/23/16 23:00 68 06/23/16 23:00 98.7 64 113/69 97 06/23/16 22:00 76 06/23/16 21:13 94 Nasal Cannula 4.00 06/23/16 21:00 90 06/23/16 20:00 80 06/23/16 19:00 93 06/23/16 19:00 98.4 84 131/90 95 06/23/16 19:00 Nasal Cannula 4.00 40 06/23/16 18:03 75 06/23/16 17:00 97.0 78 125/89 93 06/23/16 17:00 98 06/23/16 16:00 95 Nasal Cannula 4.00 06/23/16 15:31 84 06/23/16 15:30 98.0 95 18 109/73 92 06/23/16 12:00 95 Nasal Cannula 4.00 06/23/16 11:02 98.2 95 18 116/66 92 06/23/16 11:02 95 Labs: Laboratory Tests Test 06/24/16 06:00 White Blood Count 12.9 TH/MM3 (4.0-11.0) Red Blood Count 3.89 MIL/MM3 (4.50-5.90) Hemoglobin 11.7 GM/DL (13.0-17.0) Hematocrit 35.7 % (39.0-51.0) Mean Corpuscular Volume 91.9 FL (80.0-100.0) Mean Corpuscular Hemoglobin 30.1 PG (27.0-34.0) Mean Corpuscular Hemoglobin 32.7 % Concent (32.0-36.0) Red Cell Distribution Width 13.8 % (11.6-17.2) Platelet Count 116 TH/MM3 (150-450) Mean Platelet Volume 9.0 FL (7.0-11.0) Neutrophils (%) (Auto) 79.8 % (16.0-70.0) Lymphocytes (%) (Auto) 8.1 % (9.0-44.0) Monocytes (%) (Auto) 10.9 % (0.0-8.0) Eosinophils (%) (Auto) 1.0 % (0.0-4.0) Basophils (%) (Auto) 0.2 % (0.0-2.0) Neutrophils # (Auto) 10.3 TH/MM3 (1.8-7.7) Lymphocytes # (Auto) 1.0 TH/MM3 (1.0-4.8) Monocytes # (Auto) 1.4 TH/MM3 (0-0.9) Eosinophils # (Auto) 0.1 TH/MM3 (0-0.4) Basophils # (Auto) 0.0 TH/MM3 (0-0.2) CBC Comment DIFF FINAL Differential Comment Sodium Level 139 MEQ/L (136-145) Potassium Level 4.1 MEQ/L (3.5-5.1) Chloride Level 103 MEQ/L (98-107) Carbon Dioxide Level 28.3 MEQ/L (21.0-32.0) Anion Gap 8 MEQ/L (5-15) Blood Urea Nitrogen 27 MG/DL (7-18) Creatinine 0.99 MG/DL (0.60-1.30) Estimat Glomerular Filtration 73 ML/MIN (>89) Rate Random Glucose 108 MG/DL (74-106) Calcium Level 8.5 MG/DL (8.5-10.1) Magnesium Level 2.2 MG/DL (1.5-2.5) Result Diagram: 06/24/16 0600 06/24/16 0600 Telemetry: afib rate controlled (1) Hyperlipemia (2) CAD (coronary artery disease) (3) S/P CABG x 1 Plan: ASA, statin , BB pulm toileting, OOB ambulate gentle diuresis (4) Hyperlipemia Plan: on statin (5) Hypertension Plan: controlled Isabella Wolfe Jun 24, 2016 10:44
[2016-06-24] MEDS ORDERED: FUROSEMIDE 20 MG/2 ML VIAL IV PUSH ONE (10:45)
[2016-06-24] MEDS ORDERED: POTASSIUM CHLORIDE 10 MEQ CONTROLLED RELEASE TAB PO ONE (10:45)
[2016-06-24] MEDS ORDERED: hydrALAZINE HCL 20 MG/ML VIAL IV PUSH PRN (15:00)
[2016-06-24] MEDS: LOSARTAN 25 MG TAB PO SCH (15:22)
[2016-06-24] MEDS: TAMSULOSIN HCL 0.4 MG CAP PO SCH (16:23)
[2016-06-24 16:28] LABS: BLOOD, URINE MOD (NEG); GLUCOSE,URINE NEG (NEG); KETONE, URINE NEG (NEG); NITRITE,URINE NEG (NEG); URINE COLOR LIGHT-YELLOW (YELLW/STRAW)
[2016-06-24 16:29] LABS: COMMENT (UR) CATH-CULT NOT IND; CULTURE IF INDICATED CATH CULTURE NOT IND
[2016-06-24] MEDS: ATORVASTATIN 40 MG TAB PO SCH (20:53)
[2016-06-24] MEDS: SENNOSIDES 8.6 MG TAB PO SCH (20:53)
[2016-06-25] VITALS (27 sets, daily range): BP systolic 106–140; BP diastolic 68–93; PULSE 59–96; RESP 16–20; TEMP 97.4–98.1; O2SAT 94–96
[2016-06-25] MEDS: oxyCODONE/ACETAMINOPHEN 10 MG/325 MG TAB PO PRN ×3 (06:06→22:35)
[2016-06-25] MEDS: PANTOPRAZOLE SOD 40 MG DELAYED RELEASE TAB PO SCH (06:07)
[2016-06-25] MEDS: INSULIN ASPART SUPPLEMENTAL SCALE SQ SCH ×4 (06:25→21:00)
[2016-06-25] MEDS: RESP: ALBUTEROL 2.5 MG/IPRATROPIUM 0.5 MG NEB (SCH) NEB (07:41)
[2016-06-25] MEDS: SODIUM CHLORIDE 0.9% FLUSH 10 ML FLUSH IV FLUSH SCH ×2 (09:00→21:00)
[2016-06-25] MEDS: MUPIROCIN 2% OINT 22 GM TUBE EACH NARE SCH (09:00)
[2016-06-25] MEDS: MAGNESIUM HYDROXIDE SUSP 30 ML CUP PO SCH (09:00)
[2016-06-25] MEDS: POLYETHYLENE GLYCOL 17 GM PKG PO SCH (09:01)
[2016-06-25] MEDS: DOCUSATE SODIUM 100 MG CAP PO SCH ×2 (09:02→21:45)
[2016-06-25] MEDS: MULTIVITAMINS/MINERALS THERAPEUTIC TAB PO SCH (09:02)
[2016-06-25] MEDS: LOSARTAN 25 MG TAB PO SCH (09:02)
[2016-06-25] MEDS: TAMSULOSIN HCL 0.4 MG CAP PO SCH (09:02)
[2016-06-25] MEDS: ASPIRIN 81 MG CHEW TAB PO SCH ×2 (09:03→12:21)
[2016-06-25] MEDS: KETOROLAC TROMETHAMINE 30 MG/ML (IVP) VIAL IV PUSH PRN ×2 (09:04→15:12)
[2016-06-25] MEDS: METOPROLOL TARTRATE 25 MG TAB PO SCH ×2 (09:04→21:46)
--- NOTE | 2016-06-25 12:42 | PD.CONS ---
[facility] Service Urology Consult Requested By Primary Care Physician Lyndon Cheung MD Diagnosis: History of Present Illness 75-year-old male status post CABG. Postoperatively, patient has developed urinary retention with hematuria. His urinalysis presently clear. Approximately 1500 cc was drained from the bladder once the Espino catheter was inserted last night. The patient does admit to a history of nocturia 5-6 times with a weak stream and incomplete emptying. No history of prostate cancers noted. Review of Systems Constitutional: DENIES: Diaphoretic episodes Endocrine: DENIES: Heat/cold intolerance Ears, nose, mouth, throat: DENIES: Tinnitus Gastrointestinal: DENIES: Abdominal pain Musculoskeletal: DENIES: Joint pain Integumentary: DENIES: Abnormal pigmentation Hematologic/lymphatic: DENIES: Bruising Immunologic/allergic: DENIES: Eczema Neurologic: DENIES: Abnormal gait Past Family Social History Past Medical History Hypertension Hyperlipidemia Atrial fibrillation Coronary artery disease Past Surgical History Left knee surgery Right arm surgery Allergies: Coded Allergies: No Known Allergies (Verified , 06/22/16) Family History Mother with pneumonia No family history of prostate cancers noted Social History History of smoking in the past Physical Exam Vital Signs Date Time Temp Pulse Resp B/P Pulse Ox O2 Delivery O2 Flow Rate FiO2 06/25/16 07:43 96 21 06/25/16 06:00 76 06/25/16 05:00 74 06/25/16 04:51 69 06/25/16 03:40 82 06/25/16 03:26 Nasal Cannula 4.00 95 06/25/16 03:25 80 121/84 95 06/25/16 02:00 68 06/25/16 01:00 74 06/25/16 00:00 74 06/24/16 23:39 98.9 90 121/84 97 06/24/16 23:00 80 06/24/16 23:00 Nasal Cannula 4.00 95 06/24/16 22:00 84 06/24/16 21:00 98 06/24/16 20:00 96 06/24/16 19:32 94 Nasal Cannula 4.00 06/24/16 19:00 91 06/24/16 19:00 Nasal Cannula 3.00 06/24/16 19:00 106 122/73 95 06/24/16 18:04 94 06/24/16 17:00 98 06/24/16 16:15 147/89 06/24/16 16:00 112 06/24/16 15:00 101 06/24/16 15:00 83 182/112 95 06/24/16 15:00 95 Nasal Cannula 3.00 06/24/16 14:08 99 06/24/16 13:00 80 Physical Exam GENERAL: This is a well-nourished, well-developed patient, in no apparent distress. SKIN: No rashes, ecchymoses or lesions. Cool and dry. HEAD: Atraumatic. Normocephalic. No temporal or scalp tenderness. EYES: Pupils equal round and reactive. Extraocular motions intact. No scleral icterus. No injection or drainage. ENT: Nose without bleeding, purulent drainage or septal hematoma. Throat without erythema, tonsillar hypertrophy or exudate. Uvula midline. Airway patent. NECK: Trachea midline. No JVD or lymphadenopathy. Supple, nontender, no meningeal signs. CARDIOVASCULAR: Regular rate and rhythm without murmurs, gallops, or rubs. Dressing and place. RESPIRATORY: Clear to auscultation. Breath sounds equal bilaterally. No wheezes , rales, or rhonchi. GASTROINTESTINAL: Abdomen soft, non-tender, nondistended. No hepato-splenomegaly , or palpable masses. No guarding. GENITOURINARY: Normal phallus testes descended with Espino catheter in place. Urine is now clear. MUSCULOSKELETAL: Extremities without clubbing, cyanosis, or edema. No joint tenderness, effusion, or edema noted. No calf tenderness. Negative Homans sign bilaterally. NEUROLOGICAL: Awake and alert. Cranial nerves II through XII intact. Motor and sensory grossly within normal limits. Five out of 5 muscle strength in all muscle groups. Normal speech. Laboratory Tests Test 06/24/16 15:55 Urine Color LIGHT-YELLOW Urine Turbidity CLEAR Urine pH 5.0 Urine Specific [place] 1.005 Urine Protein NEG Urine Glucose (UA) NEG Urine Ketones NEG Urine Occult Blood MOD Urine Nitrite NEG Urine Bilirubin NEG Urine Urobilinogen LESS THAN 2.0 Urine Leukocyte Esterase NEG Urine RBC 71 Urine WBC 1 Microscopic Urinalysis Comment CATH-CULT NOT IND Result Diagram: 06/24/16 0600 06/24/16 0600 Imaging Last Impressions Chest X-Ray 06/23/16 0500 Signed Impressions: Service Date/Time: Thursday, June 23, 2016 02:31 - CONCLUSION: Tiny left apical pneumothorax suspected. Left lower lobe airspace disease. Gerard Ramirez MD Assessment and Plan Assessment and Plan 75-year-old male status post CABG with symptoms of BPH with obstruction and acute urinary retention. Hematuria has resolved after bladder decompression. Continue Flomax 0.4 mg by mouth daily at bedtime Continue out of bed with ambulation. Wean narcotics as appropriate. Void trial in the near future after Flomax reaches a steady state. Thank you for the consult. Neo Magana DO Jun 25, 2016 12:42
[2016-06-25] MEDS ORDERED: RIVAROXABAN 20 MG TAB PO SCH (18:15)
--- NOTE | 2016-06-25 18:15 | PD.CAR.PN ---
CVT Progress Note Subjective/Hospital Course: 75/ male c/o of chest pain couple of weeks , indigestion -like quality , underwent Heart cath 100% LAD EF 40% PMH: chronic AFIB ( on xarelto at home) , HLP, HTN , mod MR surgery 06/22 CABG x 1 GUPTA to LAD 06/23 doing well, up in chair, no pressors rhythm stable / afib rate controlled on nasal cannula will transfer to stepdown unit 06/24 remains in afib leave chest tube in today/ drained 180cc/ 12 hrs start xarelto when chest tubes out OOB/ ambulate pulm toileting 06/25 chest tube removed without difficulty [place] cath replaced 05/06 urinary retention/ also hematuria appreciate urology input/ now on flomax resume xarelto this pm, hx of chronic afib family requesting SNF ( pt lives alone) Objective: GENERAL: only speaks spainish SKIN: Warm and dry./ prevena to chest HEAD: Normocephalic. EYES: No scleral icterus. No injection or drainage. NECK: Supple, trachea midline. No JVD or lymphadenopathy. CARDIOVASCULAR: Regular rate and rhythm without murmurs, gallops, or rubs. RESPIRATORY: Breath sounds equal bilaterally. No accessory muscle use. GASTROINTESTINAL: Abdomen soft, non-tender, nondistended. MUSCULOSKELETAL: No cyanosis, or edema. BACK: Nontender without obvious deformity. No CVA tenderness. : salam[place] cath in place hematuria improving Vital Signs Date Time Temp Pulse Resp B/P Pulse Ox O2 Delivery O2 Flow Rate FiO2 06/25/16 15:00 97.4 86 16 106/68 95 06/25/16 15:00 96 06/25/16 14:00 66 06/25/16 13:33 67 06/25/16 12:00 60 06/25/16 12:00 96 Room Air 06/25/16 12:00 97.9 78 17 126/74 96 06/25/16 11:00 59 06/25/16 10:00 66 06/25/16 09:00 68 06/25/16 08:00 84 06/25/16 07:43 96 21 06/25/16 07:15 97.7 89 17 116/83 94 06/25/16 07:00 69 06/25/16 07:00 93 Room Air 06/25/16 06:00 76 06/25/16 05:00 74 06/25/16 04:51 69 06/25/16 03:40 82 06/25/16 03:26 Nasal Cannula 4.00 95 06/25/16 03:25 80 121/84 95 06/25/16 02:00 68 06/25/16 01:00 74 06/25/16 00:00 74 06/24/16 23:39 98.9 90 121/84 97 06/24/16 23:00 80 06/24/16 23:00 Nasal Cannula 4.00 95 06/24/16 22:00 84 06/24/16 21:00 98 06/24/16 20:00 96 06/24/16 19:32 94 Nasal Cannula 4.00 06/24/16 19:00 91 06/24/16 19:00 Nasal Cannula 3.00 06/24/16 19:00 106 122/73 95 Result Diagram: 06/24/16 0600 06/24/16 0600 Cardiovascular: afib (1) CAD (coronary artery disease) (2) S/P CABG x 1 Plan: ASA, statin , BB pulm toileting, OOB ambulate (3) Hyperlipemia Plan: on statin (4) Hypertension Plan: controlled (5) Urinary retention Plan: on flomax, [place] cath replaced urology following Isabella Wolfe Jun 25, 2016 18:15
--- NOTE | 2016-06-25 18:41 | RADRPT ---
EXAM DATE/TIME: 06/25/2016 18:16 [facility] COMPARISON: CHEST SINGLE AP, June 23, 2016, 2:31. INDICATIONS : Chest tube removal, evaluate for pneumothorax. MEDICAL HISTORY : None. SURGICAL HISTORY : CABG. ENCOUNTER: Initial ACUITY: 1 day PAIN SCORE: 5/10 LOCATION: Bilateral chest FINDINGS: Thoracostomy tubes have been removed. There is no evidence of pneumothorax. Right central line has al so been removed. Mild basilar parenchymal opacities persist unchanged. Cardiac contours are grossly s table. CONCLUSION: Thoracostomy tube removal without complication Manohar Valadez MD on June 25, 2016 at 18:39 Board Certified Radiologist. This report was verified electronically.
[2016-06-25] MEDS: ATORVASTATIN 40 MG TAB PO SCH (21:45)
[2016-06-25] MEDS: SENNOSIDES 8.6 MG TAB PO SCH (21:45)
[2016-06-26] VITALS (15 sets, daily range): BP systolic 109–139; BP diastolic 73–96; PULSE 64–100; RESP 16–20; TEMP 98.2–99.3; O2SAT 94–96
[2016-06-26] MEDS: KETOROLAC TROMETHAMINE 30 MG/ML (IVP) VIAL IV PUSH PRN ×2 (01:16→13:54)
[2016-06-26] MEDS: oxyCODONE/ACETAMINOPHEN 10 MG/325 MG TAB PO PRN ×3 (04:00→16:06)
[2016-06-26] MEDS: PANTOPRAZOLE SOD 40 MG DELAYED RELEASE TAB PO SCH (06:29)
[2016-06-26] MEDS: INSULIN ASPART SUPPLEMENTAL SCALE SQ SCH ×2 (07:00→11:44)
[2016-06-26] MEDS: SODIUM CHLORIDE 0.9% FLUSH 10 ML FLUSH IV FLUSH SCH (09:00)
[2016-06-26] MEDS ORDERED: RIVAROXABAN 20 MG TAB PO SCH (09:00)
[2016-06-26] MEDS: ASPIRIN 81 MG CHEW TAB PO SCH (09:03)
[2016-06-26] MEDS: POLYETHYLENE GLYCOL 17 GM PKG PO SCH (09:03)
[2016-06-26] MEDS: TAMSULOSIN HCL 0.4 MG CAP PO SCH (09:03)
[2016-06-26] MEDS: MAGNESIUM HYDROXIDE SUSP 30 ML CUP PO SCH (09:03)
[2016-06-26] MEDS: MULTIVITAMINS/MINERALS THERAPEUTIC TAB PO SCH (09:04)
[2016-06-26] MEDS: LOSARTAN 25 MG TAB PO SCH (09:04)
[2016-06-26] MEDS: DOCUSATE SODIUM 100 MG CAP PO SCH (09:04)
[2016-06-26] MEDS: METOPROLOL TARTRATE 25 MG TAB PO SCH (09:04)
--- NOTE | 2016-06-26 10:12 | HHI.PR ---
Subjective Patient symptoms today Pt seen and examined. OOB in chair Objective Vital Signs Vital Signs Date Time Temp Pulse Resp B/P Pulse Ox O2 Delivery O2 Flow Rate FiO2 06/26/16 10:00 75 06/26/16 09:00 87 06/26/16 08:00 100 06/26/16 07:00 82 06/26/16 07:00 98.6 97 20 136/91 95 06/26/16 05:00 80 06/26/16 05:00 16 06/26/16 04:00 80 06/26/16 03:00 78 06/26/16 03:00 98.3 90 20 139/96 94 06/26/16 02:15 20 06/26/16 02:00 76 06/26/16 01:00 70 06/26/16 00:00 74 06/25/16 23:00 78 06/25/16 23:00 98.1 73 20 140/93 96 06/25/16 22:00 82 06/25/16 21:00 78 06/25/16 20:00 86 06/25/16 19:00 84 06/25/16 19:00 98.1 75 20 129/90 96 06/25/16 18:31 90 06/25/16 17:00 80 06/25/16 16:00 84 06/25/16 15:00 97.4 86 16 106/68 95 06/25/16 15:00 96 06/25/16 14:00 66 06/25/16 13:33 67 06/25/16 12:00 60 06/25/16 12:00 96 Room Air 06/25/16 12:00 97.9 78 17 126/74 96 06/25/16 11:00 59 Intake & Output 06/26/16 06/26/16 07:00 19:00 Intake Total 640 ml Output Total 751 ml Balance -111 ml Intake Oral 640 ml Output Urine Total 750 ml Stool Total 1 ml Result Diagram: 06/24/1659906/24/16599 Objective Remarks Abd:soft,nt,nd Espino: urine clear Medications and IVs Current Medications Medications (Trade) Dose Ordered Sig/Dimas Route Start Time Stop Time Status Last Admin (NS Flush) 2 ml BID IV FLUSH 06/22/16 21:00 06/26/16 09:00 (NS Flush) 2 ml UNSCH PRN IVF 06/22/16 10:15 (Aspirin Chew) 81 mg DAILY PO 06/23/16 09:00 06/26/16 09:03 (Protonix) 40 mg DAILY@06 PO 06/23/16 06:00 06/26/16 06:29 (Tylenol) 650 mg Q4H PRN PO 06/22/16 10:15 Ondansetron HCl 4 mg 4 mg Q6H PRN IV PUSH 06/22/16 10:15 Magnesium Sulfate 2 gm/Sodium Chloride 104 ml @ 100 mls/hr UNSCH PRN IV 06/22/16 10:15 (Magnesium Sulfate Inj/NS Inj) 104 ml @ 50 mls/hr UNSCH PRN IV 06/22/16 10:15 06/23/16 07:37 (Lipitor) 40 mg HS PO 06/22/16 21:00 06/25/16 21:45 (Percocet 10-325 Mg) 1 tab Q6HR PRN PO 06/22/16 10:15 06/26/16 04:00 (Colace) 100 mg BID PO 06/23/16 21:00 06/26/16 09:04 (Theragran M Tab) 1 tab DAILY PO 06/23/16 10:00 06/26/16 09:04 (Milk Of Magnesia Liq) 30 ml DAILY PO 06/23/16 10:00 06/26/16 09:03 (Miralax) 17 gm DAILY PO 06/24/16 09:00 06/26/16 09:03 (Senokot) 8.6 mg HS PO 06/23/16 21:00 06/25/16 21:45 (Fleets Enema (Adult)) 133 ml UNSCH PRN RECTAL 06/23/16 09:00 (D50w (Vial) Inj) 25 ml UNSCH PRN IV 06/23/16 09:00 (Glucagon Inj) 1 mg UNSCH PRN OTHER 06/23/16 09:00 (NovoLOG SUPPLEMENTAL SCALE) 1 ACHS SQ 06/24/16 11:00 06/25/16 17:53 (Pill Splitter) 1 ea UNSCH PRN OTHER 06/23/16 09:45 (Toradol Inj) 15 mg Q6H PRN IV PUSH 06/23/16 17:00 06/28/16 16:59 06/26/16 01:16 (Lopressor) 25 mg BID PO 06/24/16 21:00 06/26/16 09:04 (Cozaar) 25 mg DAILY PO 06/24/16 15:00 06/26/16 09:04 (Apresoline Inj) 10 mg Q4H PRN IV PUSH 06/24/16 15:00 06/24/16 15:22 (Flomax) 0.4 mg DAILY PO 06/24/16 15:45 06/26/16 09:03 (Xarelto) 20 mg DAILY PO 06/26/16 09:00 06/26/16 09:03 Assessment and Plan Assessment and Plan 75-year-old male status post CABG with symptoms of BPH with obstruction and acute urinary retention. Hematuria has resolved after bladder decompression. Continue Flomax 0.4 mg by mouth daily at bedtime Continue out of bed with ambulation. Wean narcotics as appropriate. Void trial in the near future after Flomax reaches a steady state. Thank you for the consult. 06/26 75-year-old male status post CABG with symptoms of BPH with obstruction and acute urinary retention. Hematuria has resolved after bladder decompression. Continue Flomax Void trial next week Neo Magana DO Jun 26, 2016 10:12
--- NOTE | 2016-06-26 12:31 | HHI.DS ---
Discharge Summary Admission Date Jun 22, 2016 at 05:36 Discharge Date: Jun 26, 2016 Admitting Diagnosis NSTEMI CAD (1) CO, acute, non ST segment elevation Diagnosis: Principal (2) Urinary retention Diagnosis: Secondary (3) Hypertension Diagnosis: Secondary (4) Hyperlipemia Diagnosis: Secondary (5) Afib Diagnosis: Secondary (6) CAD (coronary artery disease) Diagnosis: Principal Procedures CABG x 1 Brief History 75/ male c/o of chest pain couple of weeks , indigestion -like quality , underwent Heart cath 100% LAD EF 40% PMH: chronic AFIB ( on xarelto at home) , HLP, HTN , mod MR CBC/BMP: 06/24/16 0600 06/24/16 0600 Significant Findings Laboratory Tests Test 06/24/16 06/24/16 06:00 15:55 White Blood Count 12.9 TH/MM3 (4.0-11.0) Red Blood Count 3.89 MIL/MM3 (4.50-5.90) Hemoglobin 11.7 GM/DL (13.0-17.0) Hematocrit 35.7 % (39.0-51.0) Platelet Count 116 TH/MM3 (150-450) Neutrophils (%) (Auto) 79.8 % (16.0-70.0) Lymphocytes (%) (Auto) 8.1 % (9.0-44.0) Monocytes (%) (Auto) 10.9 % (0.0-8.0) Neutrophils # (Auto) 10.3 TH/MM3 (1.8-7.7) Monocytes # (Auto) 1.4 TH/MM3 (0-0.9) Blood Urea Nitrogen 27 MG/DL (7-18) Estimat Glomerular Filtration 73 ML/MIN (>89) Rate Random Glucose 108 MG/DL (74-106) Urine Occult Blood MOD (NEG) Urine RBC 71 /hpf (0-3) Imaging Last Impressions Chest X-Ray 06/25/16 0000 Signed Impressions: Service Date/Time: Saturday, June 25, 2016 18:16 - CONCLUSION: Thoracostomy tube removal without complication Manohar Valadez MD PE at Discharge chest - CTA COR - IRR ABD - soft, NT Wound - dry and intact Hospital Course surgery 06/22 CABG x 1 GUPTA to LAD 06/23 doing well, up in chair, no pressors rhythm stable / afib rate controlled on nasal cannula will transfer to stepdown unit 06/24 remains in afib leave chest tube in today/ drained 180cc/ 12 hrs start xarelto when chest tubes out OOB/ ambulate pulm toileting 06/25 chest tube removed without difficulty [place] cath replaced 05/06 urinary retention/ also hematuria appreciate urology input/ now on flomax resume xarelto this pm, hx of chronic afib family requesting SNF ( pt lives alone) Pt Condition on Discharge: Good Discharge Disposition: Discharge to SNF Discharge Instructions DIET: Follow Instructions for: Heart Healthy Diet Activities you can perform: Weight Bearing as [place], Shower Only-No Bath Activities to avoid: Lifting/Bending, Strenuous Activity, Driving Follow up Referrals: Appointment for Follow Up - 4 Weeks Cardiology PCP Follow-up Urology - 1 Week with Neo Magana DO New Medications: Losartan (Cozaar) 25 Mg Tab 25 MG PO DAILY Blood Pressure Management #30 Ref 3 TAB Metoprolol Tartrate (Metoprolol Tartrate) 25 Mg Tab 25 MG PO BID Blood Pressure Management #60 Ref 3 TAB Multiple Vitamins W/ Minerals (Thera M Plus) 1 Tab 1 TAB PO DAILY Nutritional Supplement #100 Ref 0 TAB Oxycodone-Acetaminophen (Oxycodone-Acetaminophen) 10-325 mg Tab 1 TAB PO Q6HR PRN PAIN 1-10 #30 Ref 0 TAB Pantoprazole (Pantoprazole) 40 Mg Tab 40 MG PO DAILY@06 Prevent Stress Ulcers #28 Ref 0 TAB Tamsulosin (Flomax) 0.4 Mg Cap 0.4 MG PO DAILY Manage Prostate Problems #30 Ref 3 CAP Continued Medications: Atorvastatin (Atorvastatin) 40 Mg Tab 40 MG PO HS Cholesterol Management #30 Ref 0 TAB Rivaroxaban (Xarelto) 20 Mg Tab 20 MG PO DAILY Blood Clot Prevention Ref 0 TAB Discontinued Medications: Amlodipine (Amlodipine) 10 Mg Tab 10 MG PO DAILY Blood Pressure Management #30 Ref 0 TAB Losartan (Losartan) 50 Mg Tab 50 MG PO DAILY Blood Pressure Management #30 Ref 0 TAB Oxycodone-Acetaminophen (Percocet) 10-325 mg Tab 1 TAB PO Q6HR PRN PAIN Ref 0 TAB Ni Victor MD Jun 26, 2016 12:31
[2016-06-26] MEDS ORDERED: TAMS5CAP PO (12:40)
[2016-06-26] MEDS ORDERED: OXYC1TAB36 PO (12:40)
[2016-06-26] MEDS ORDERED: METO25TA3 PO (12:40)
[2016-06-26] MEDS ORDERED: PANT40TA3 PO (12:40)
[2016-06-26] MEDS ORDERED: COZA25TA PO (12:40)
[2016-06-26] MEDS ORDERED: THERM PO (12:40)
== END 2016-06-26 16:11 | DRG 236 ==
LOC: HSDI 06-22 05:36 → HCVR 06-22 10:58 → HCIN 06-23 16:51
PROVIDERS: ADMIT Thoracic Surgery (Cardiothoracic Vascular Surgery); ATTEND Thoracic Surgery (Cardiothoracic Vascular Surgery)
PROC: B246ZZ4 Ultrasonography of Right and Left Heart, Transesophageal (ICD-10-PCS; 2016-06-22)
PROC: 02100Z9 Bypass Coronary Artery, One Artery from Left Internal Mammary, Open Approach (ICD-10-PCS; principal; 2016-06-22 07:15)
PROC: 5A1221Z Performance of Cardiac Output, Continuous (ICD-10-PCS; 2016-06-22 07:15)
PROC: 0T9B70Z Drainage of Bladder with Drainage Device, Via Natural or Artificial Opening (ICD-10-PCS; 2016-06-25)
DX: I25.10 Atherosclerotic heart disease of native coronary artery without angina pectoris (principal); N13.8 Other obstructive and reflux uropathy; I25.82 Chronic total occlusion of coronary artery; I48.2 Chronic atrial fibrillation; I10 Essential (primary) hypertension; E78.5 Hyperlipidemia, unspecified; N40.1 Benign prostatic hyperplasia with lower urinary tract symptoms; R33.8 Other retention of urine; R31.9 Hematuria, unspecified; I25.2 Old myocardial infarction; Z87.891 Personal history of nicotine dependence
CPT/HCPCS: 36430; 71010; 76937; 80048; 81001; 82948; 83735; 85014; 85025; 85027; 86850; 86900; 86901; 86920; 93005; 93318; 94002; 94150; 94640; 94664; 94667; 94668; C9399; J0131; J0360; J0690; J1644; J1815; J1885; J1940; J2150; J2250; J2370; J2440; J2720; J2930; J3010; J3370; J3475; J3480; J7040; J7120; P9016; P9047

== ENCOUNTER 2016-09-05 09:03 | Inpatient (IN) | payer OTHER, MEDICARE ==
[2016-09-05] VITALS (8 sets, daily range): BP systolic 142–169; BP diastolic 81–102; PULSE 67–93; RESP 17–24; TEMP 97.5–98; O2SAT 93–99
[~2016-09-05] VITALS: Ht 177.8 cm; Wt 70.5 kg
[~2016-09-05 09:03] MED LIST changes: -AMLO10TA2 PO; +COZA25TA PO; -LOSA50TA PO; +METO25TA3 PO; +OXYC1TAB36 PO; +PANT40TA3 PO; +TAMS5CAP PO; +THERM PO
[2016-09-05] MEDS: SODIUM CHLORIDE 0.9% FLUSH 10 ML FLUSH IVF PRN ×2 (10:08→15:42)
[2016-09-05 10:43] LABS: AUTOMATED NEUTROPHIL # 7.6 TH/MM3 (1.8-7.7); BASOPHIL % 0.4 % (0.0-2.0); EOSINOPHIL # 0.1 TH/MM3 (0-0.4); EOSINOPHIL % 0.9 % (0.0-4.0); HEMATOCRIT 35.5 % (39.0-51.0); HEMO FLAGS DIFF FINAL; LYMPH % 8.8 % (9.0-44.0); LYMPHOCYTE # 0.8 TH/MM3 (1.0-4.8); MEAN CORPUSCULAR HEMOGLOBIN 27.5 PG (27.0-34.0); MEAN CORPUSCULAR HGB CONC 33.5 % (32.0-36.0); MONO % 8.7 % (0.0-8.0); NEUT % 81.2 % (16.0-70.0); PLATELET COUNT 220 TH/MM3 (150-450); RED BLOOD COUNT 4.33 MIL/MM3 (4.50-5.90); RED CELL DISTRIBUTION WIDTH 15.8 % (11.6-17.2); WHITE BLOOD COUNT 9.4 TH/MM3 (4.0-11.0)
[2016-09-05 10:54] LABS: APTT (PATIENT) 32.2 SEC (24.3-30.1); INTERNATIONAL NORMALIZED RATIO 1.2 RATIO
[2016-09-05 11:03] LABS: ALKALINE PHOSPHATASE 222 U/L (45-117); ALT (GPT) 109 U/L (12-78); ANION GAP 8 MEQ/L (5-15); AST (GOT) 95 U/L (15-37); BICARBONATE 23.2 MEQ/L (21.0-32.0); BLOOD UREA NITROGEN 21 MG/DL (7-18); CHLORIDE 108 MEQ/L (98-107); CREATINE KINASE 131 U/L (39-308); GLOMERULAR FILTRATION RATE 77 ML/MIN (>89); POTASSIUM 4.7 MEQ/L (3.5-5.1); SODIUM (NA) 139 MEQ/L (136-145); TOTAL BILIRUBIN ADULT 1.9 MG/DL (0.2-1.0)
--- NOTE | 2016-09-05 11:07 | RADRPT ---
EXAM DATE/TIME: 09/05/2016 10:28 [facility] COMPARISON: CHEST SINGLE AP, June 25, 2016, 18:16. INDICATIONS : Chest Pain MEDICAL HISTORY : None. SURGICAL HISTORY : CABG. ENCOUNTER: Initial ACUITY: 1 day PAIN SCORE: Non-responsive. LOCATION: Bilateral chest FINDINGS: There is cardiomegaly with bilateral mostly basilar airspace disease and small effusions. Differentia l diagnosis includes mild congestive heart failure. Findings are new since June 25. Previous median sternotomy. CONCLUSION: 1. Cardiomegaly with bilateral mostly basilar airspace disease and small effusions that have develope d since June 2016. Differential diagnosis includes mild congestive heart failure. Adolfo Crook MD on September 05, 2016 at 11:04 Board Certified Radiologist. This report was verified electronically.
[2016-09-05 11:15] LABS: CKMB 2.2 NG/ML (0.5-3.6)
--- NOTE | 2016-09-05 13:12 | RADRPT ---
EXAM DATE/TIME: 09/05/2016 11:50 [facility] COMPARISON: No previous studies available for comparison. INDICATIONS : Right upper quadrant pain. MEDICAL HISTORY : Hypercholesterolemia. Hypertension. Renal calculi. CAD. SURGICAL HISTORY : Cardiac surgery. Left knee surgery. ENCOUNTER: Initial ACUITY: 3 days PAIN SCORE: 2/10 LOCATION: Right upper quadrant MEASUREMENTS: LIVER: 16.0 cm length COMMON DUCT: 3 mm RIGHT KIDNEY: 11.5 x 4.8 x 6.4 cm FINDINGS: LIVER: Normal echotexture without focal lesion or ductal dilatation. COMMON DUCT: No intraluminal mass or stone visualized. GALLBLADDER: Diffuse mild gallbladder wall thickening measuring 3-4 mm. No calculi identified. PANCREAS: The visualized portions are within normal limits. RIGHT KIDNEY: 2.9 cm cystic mass in the midpole the right kidney low level internal echoes. 2.5 cm cystic mass in t he lower pole with low level internal echoes. 1.5 cm simple cyst in the lower pole. No evidence of hy dronephrosis. CONCLUSION: 1. Diffuse mild to moderate gallbladder wall thickening, nonspecific. No calculi identified. 2. Multiple cystic masses in the right kidney. One in the midpole and one in the lower pole of low le keyla internal echoes, likely representing complex cysts. Bro Soto MD on September 05, 2016 at 13:00 Board Certified Radiologist. This report was verified electronically.
--- NOTE | 2016-09-05 14:14 | EKG ---
Date Performed: 09/05/2016 Time Performed: 09:23:00 PTAGE: 76 years EKG: Poor initial anterior force V1 and V2, may be normal variant Since PREVIOUS TRACING 06/23/2016, there is loss of R force in V2 but this may be normal varia nt. Clinical correlation is recommended. PREVIOUS TRACING 06/23/2016 DOCTOR: Ajit Gomez Interpretating Date/Time 09/05/2016 14:13:43
--- NOTE | 2016-09-05 14:26 | PD ---
HPI Chief Complaint: Cardiac Complaint Time Seen by Provider: 09:19 Travel History International Travel<30 days: No Contact w/Intl Traveler<30days: No Traveled to known affect area: No History of Present Illness HPI Patient is a 76-year-old male who presents to emergency room with multiple complaints. Patient reports that he has been having overall generalized weakness with a sharp stabbing sensation to his chest along with shortness of breath for the past few days every month. Patient reports that he has been having abdominal pain as well, reports increased pains to his epigastrium. Reports that he was seen in this emergency room and was admitted to the hospital in June and ended up having a cardiac catheterization which showed 100 %LAD lesion, patient subsequently had a CABG by Dr. Marie Lowe and was discharged on Xarelto along with antihypertensives.He did follow up with his medical center manager last month and was told that everything was okay. Patient reports that he is uncomfortable and feels weak, reports that he is just not feeling well overall PFSH Past Medical History Hx Anticoagulant Therapy: Yes (XARELTO) Blood Disorders: No Anxiety: No Depression: Yes Heart Rhythm Problems: No Cancer: No Cardiovascular Problems: Yes (HBP) High Cholesterol: Yes Chest Pain: No Congestive Heart Failure: No Coronary Artery Disease: Yes Diabetes: No Diminished Hearing: No Endocrine: No Gastrointestinal Disorders: Yes (GALLBLADDER STONES) Glaucoma: Yes (jacobo) Genitourinary: Yes Hepatitis: No Hiatal Hernia: No Hypertension: Yes Immune Disorder: No Implanted Vascular Access Dvce: No Kidney Stones: Yes Medical other: Yes (KIDNEY STONES) Musculoskeletal: Yes (L KNEE SURGERY) Neurologic: No Psychiatric: No Reproductive: No Respiratory: Yes Myocardial Infarction: No Thyroid Disease: No Tetanus Vaccination: < 5 Years Influenza Vaccination: Yes Past Surgical History Abdominal Surgery: Yes (GALLBLADDER STONES "YEARS AGO") AICD: No Body Medical Devices: NONE PER PT Cardiac Surgery: Yes Genitourinary Surgery: Yes (02/15- SURGERY FOR KIDNEY STONE REMOVAL/URETHERAL STENT PLACEMENT) Pacemaker: No Other Surgery: Yes Social History Alcohol Use: No Tobacco Use: No (QUIT 3) Substance Use: No Allergies-Medications (Allergen,Severity, Reaction): Coded Allergies: No Known Allergies (Verified , 09/05/16) Reported Meds & Prescriptions Reported Meds & Active Scripts Active Flomax (Tamsulosin HCl) 0.4 Mg Cap 0.4 Mg PO DAILY Metoprolol Tartrate 25 Mg Tab 25 Mg PO BID Cozaar (Losartan Potassium) 25 Mg Tab 25 Mg PO DAILY Reported Atorvastatin (Atorvastatin Calcium) 40 Mg Tab 40 Mg PO HS Xarelto (Rivaroxaban) 20 Mg Tab 20 Mg PO DAILY Review of Systems General / Constitutional: No: Fever Eyes: No: Visual changes HENT: No: Headaches Cardiovascular: Positive: Chest Pain or Discomfort Respiratory: Positive: Cough, Shortness of Breath Gastrointestinal: Positive: Nausea, Abdominal Pain Genitourinary: No: Dysuria Musculoskeletal: No: Pain Skin: No Rash Neurologic: No: Weakness Psychiatric: No: Depression Endocrine: No: Polydipsia Hematologic/Lymphatic: No: Easy Bruising Physical Exam Narrative GENERAL: mild distress SKIN: Focused skin assessment warm/dry. HEAD: Atraumatic. Normocephalic. EYES: Pupils equal and round. No scleral icterus. No injection or drainage. ENT: No nasal bleeding or discharge. Mucous membranes pink and moist. NECK: Trachea midline. No JVD. CARDIOVASCULAR: Irregular irregular. No murmur appreciated. RESPIRATORY: No accessory muscle use. Clear to auscultation. Breath sounds equal bilaterally. GASTROINTESTINAL: Abdomen soft, tenderness to epigastrium to ruq with no rebound or guarding on exam MUSCULOSKELETAL: No obvious deformities. No clubbing. No cyanosis. No edema. NEUROLOGICAL: Awake and alert. No obvious cranial nerve deficits. Motor grossly within normal limits. Normal speech. PSYCHIATRIC: Appropriate mood and affect; insight and judgment normal. Data Data Last Documented VS Vital Signs Date Time Temp Pulse Resp B/P Pulse Ox O2 Delivery O2 Flow Rate FiO2 09/05/16 14:20 97.8 67 17 147/81 99 Room Air Orders Electrocardiogram (09/05/16 10:01) B-Type Natriuretic Peptide (09/05/16 10:01) Ckmb (Isoenzyme) Profile (09/05/16 10:01) Complete Blood Count With Diff (09/05/16 10:01) Comprehensive Metabolic Panel (09/05/16 10:01) Magnesium (Mg) (09/05/16 10:01) Prothrombin Time / Inr (Pt) (09/05/16 10:01) Act Partial Throm Time (Ptt) (09/05/16 10:01) Troponin I (09/05/16 10:01) Lipase (09/05/16 10:01) Chest, Single Ap (09/05/16 10:01) Ecg Monitoring (09/05/16 10:01) Iv Access Insert/Monitor (09/05/16 10:01) Oximetry (09/05/16 10:01) Sodium Chloride 0.9% Flush (Ns Flush) (09/05/16 10:15) CKMB (09/05/16 10:00) CKMB% (09/05/16 10:00) Us Abdomen Gallbladder (09/05/16 ) Piperacil-Tazo 3.375 Gm Premix (Zosyn 3. (09/05/16 14:30) Consult General Surgery (09/05/16 ) Admit To Inpatient (09/05/16 ) Inpatient Certification (09/05/16 ) Diet Npo Except Meds (09/05/16 Dinner) Sodium Chlor 0.9% 1000 Ml Inj (Ns 1000 M (09/05/16 15:00) Activity Oob Ad Amanda (09/05/16 14:52) Vital Signs (Adult) THOM.Q4H (09/05/16 14:52) Admit Order (Ed Use Only) (09/05/16 14:55) Labs Laboratory Tests Test 09/05/16 10:00 White Blood Count 9.4 TH/MM3 Red Blood Count 4.33 MIL/MM3 Hemoglobin 11.9 GM/DL Hematocrit 35.5 % Mean Corpuscular Volume 82.0 FL Mean Corpuscular Hemoglobin 27.5 PG Mean Corpuscular Hemoglobin 33.5 % Concent Red Cell Distribution Width 15.8 % Platelet Count 220 TH/MM3 Mean Platelet Volume 10.3 FL Neutrophils (%) (Auto) 81.2 % Lymphocytes (%) (Auto) 8.8 % Monocytes (%) (Auto) 8.7 % Eosinophils (%) (Auto) 0.9 % Basophils (%) (Auto) 0.4 % Neutrophils # (Auto) 7.6 TH/MM3 Lymphocytes # (Auto) 0.8 TH/MM3 Monocytes # (Auto) 0.8 TH/MM3 Eosinophils # (Auto) 0.1 TH/MM3 Basophils # (Auto) 0.0 TH/MM3 CBC Comment DIFF FINAL Differential Comment Prothrombin Time 13.0 SEC Prothromb Time International 1.2 RATIO Ratio Activated Partial 32.2 SEC Thromboplast Time Sodium Level 139 MEQ/L Potassium Level 4.7 MEQ/L Chloride Level 108 MEQ/L Carbon Dioxide Level 23.2 MEQ/L Anion Gap 8 MEQ/L Blood Urea Nitrogen 21 MG/DL Creatinine 0.95 MG/DL Estimat Glomerular Filtration 77 ML/MIN Rate Random Glucose 110 MG/DL Calcium Level 8.6 MG/DL Magnesium Level 2.0 MG/DL Total Bilirubin 1.9 MG/DL Aspartate Amino Transf 95 U/L (AST/SGOT) Alanine Aminotransferase 109 U/L (ALT/SGPT) Alkaline Phosphatase 222 U/L Total Creatine Kinase 131 U/L Creatine Kinase MB 2.2 NG/ML Troponin I LESS THAN 0.02 NG/ML B-Type Natriuretic Peptide 319 PG/ML Total Protein 6.9 GM/DL Albumin 3.3 GM/DL Lipase 162 U/L [facility] Medical Decision Making Medical Screen Exam Complete: Yes Emergency Medical Condition: Yes Interpretation(s) Vital Signs Date Time Temp Pulse Resp B/P Pulse Ox O2 Delivery O2 Flow Rate FiO2 09/05/16 14:20 97.8 67 17 147/81 99 Room Air 09/05/16 11:30 69 17 150/94 98 Room Air 09/05/16 10:11 71 18 142/98 97 Room Air 09/05/16 10:01 18 97 Room Air 09/05/16 09:17 71 17 97 Room Air 09/05/16 09:04 97.5 76 24 166/102 97 Room Air Differential Diagnosis acs, arrhythmia, electrolyte abnormalities, acute cholecystitis, UTI, pneumonia Narrative Course Patient is a 76-year-old male who presents to emergency room with complaints. Patient reports that he has been having overall generalized weakness with a sharp stabbing sensation to his chest along with shortness of breath for the past few days every month. Patient reports that he has been having abdominal pain as well, reports increased pains to his epigastrium. Orts that he was seen in this emergency room and was admitted to the hospital in June and ended up having a cardiac catheterization which showed 100%LAD lesion, patient subsequently had a CABG by Dr. Marie Lowe and was discharged on Xarelto along with antihypertensives. Patient was placed on a manager cardiac cath upon arrival to the emergency room. EKG obtained. Patient with A. fib at 78 bpm, QT/QTc 400/433 Labs including cardiac enzymes ordered. Patient was found to have elevated liver enzymes with a T bili of 1.9, alkaline phosphatase 222, AST 95, ALT 109, right upper quadrant ultrasound shows 3-4 mm diffuse call by wall thickening. Patient was found to be with acute cholecystitis. Call made to Dr. Zimmerman to review case, he will see patient in consult. Concern as patient is on blood thinners, plan for admission to medicine service with consult to cardiology to review anticoagulants as he cannot have surgery if he is on Xarelto Case reviewed with Dr. Quinones who accepts patient to service. Physician Communication Physician Communication Case discussed with Dr. Zimmerman, will see patient in consult. Patient currently on the results as well as he had recent bypass surgery, patient will need cardiology clearance as he is on xarelto, will give dose of zosyn at this time to treat acute cholecystitis Diagnosis Primary Impression: Acute cholecystitis Sandy Cooper DO Sep 05, 2016 14:26
[2016-09-05] MEDS ORDERED: PIPERACIL-TAZO 3.375 GM PREMIX 50 ML IV ONE (14:30)
[2016-09-05] MEDS: SODIUM CHLOR 0.9% 1000 ML INJ 1,000 ML IV SCH (15:42)
--- NOTE | 2016-09-05 17:14 | HHI.HP ---
[facility] Service [facility] Primary Care Physician Unknown Admission Diagnosis Acute cholecystitis Diagnoses: Chief Complaint: Abdominal Pain/bloating sensation Travel History International Travel<30 Days: No Contact w/Intl Traveler <30 Da: No Traveled to Known Affected Are: No History of Present Illness 76-year-old male from [place], Citizen [place]-speaking history obtained with the help of a Citizen [place] speaking staff at bedside. No family at bedside Apparently for the past 2 weeks now patient having complaining of epigastric discomfort/bloating sensation radiating to the chest and feels like he has to catch his breath. For the past 1-1/2 weeks complaining of poor by mouth appetite.Associated with some nausea. Patient denies any problem with bowel movements constipation Baseline ambulates with a walker. Persistence of symptoms prompted consult to ER Patient denies any fever chills On evaluation with elevated liver enzymes, gallbladder thickening and admitted for further evaluation with general surgery consult. Patient with history of CAD status post CABG last July an ejection fraction then shows a 40-45%. Review of Systems ROS Limitations: Language Barrier Past Family Social History Past Medical History History of CAD status post CABG in 07/04/16 Hypertension, atrial fibrillation BPH Past Surgical History Status post CABG in 2017 Left elbow surgery Bladder surgery Left knee arthroscopic surgery Reported Medications He is on Flomax 0.4 mg daily Cozaar 25 mg daily Xarelto 20 mg daily Lopressor 25 mg twice a Atorvastatin 40 mg at bedtime Allergies: Coded Allergies: No Known Allergies (Verified , 09/05/16) Family History Noncontributory Social History History of smoking quit 10 years ago Very occasional alcohol Physical Exam Vital Signs Vital Signs Date Time Temp Pulse Resp B/P Pulse Ox O2 Delivery O2 Flow Rate FiO2 09/05/16 14:20 97.8 67 17 147/81 99 Room Air 09/05/16 11:30 69 17 150/94 98 Room Air 09/05/16 10:11 71 18 142/98 97 Room Air 09/05/16 10:01 18 97 Room Air 09/05/16 09:17 71 17 97 Room Air 09/05/16 09:04 97.5 76 24 166/102 97 Room Air Physical Exam GENERAL: T awake alert not in acute distress SKIN: No rashes, ecchymoses or lesions. Cool and dry. HEAD: Atraumatic. Normocephalic. No temporal or scalp tenderness. EYES: Pupils equal round and reactive. Extraocular motions intact. No scleral icterus. No injection or drainage. ENT: Nose without bleeding, purulent drainage or septal hematoma. Throat without erythema, tonsillar hypertrophy or exudate. Uvula midline. Airway patent. NECK: Trachea midline. No JVD or lymphadenopathy. Supple, nontender, no meningeal signs. CARDIOVASCULAR: Irregularly irregular rhythm. Left upper chest wall- with about soft tissue mass 3 in x 2 in, non tender, 4/6 systolic murmurs left sternal border radiating to apex RESPIRATORY: Decreased breath sounds no Rales no wheezes GASTROINTESTINAL: Abdomen soft, non-tender, mild tenderness on deep palpation of the epigastric area no right upper quadrant tenderness MUSCULOSKELETAL: Extremities without clubbing, cyanosis, or edema. No joint tenderness, effusion, or edema noted. No calf tenderness. Negative Homans sign bilaterally. NEUROLOGICAL: Awake and alert. Cranial nerves II through XII intact. Motor and sensory grossly within normal limits. Five out of 5 muscle strength in all muscle groups. Normal speech. Laboratory Laboratory Tests Test 09/05/16 10:00 White Blood Count 9.4 Red Blood Count 4.33 Hemoglobin 11.9 Hematocrit 35.5 Mean Corpuscular Volume 82.0 Mean Corpuscular Hemoglobin 27.5 Mean Corpuscular Hemoglobin 33.5 Concent Red Cell Distribution Width 15.8 Platelet Count 220 Mean Platelet Volume 10.3 Neutrophils (%) (Auto) 81.2 Lymphocytes (%) (Auto) 8.8 Monocytes (%) (Auto) 8.7 Eosinophils (%) (Auto) 0.9 Basophils (%) (Auto) 0.4 Neutrophils # (Auto) 7.6 Lymphocytes # (Auto) 0.8 Monocytes # (Auto) 0.8 Eosinophils # (Auto) 0.1 Basophils # (Auto) 0.0 CBC Comment DIFF FINAL Differential Comment Prothrombin Time 13.0 Prothromb Time International 1.2 Ratio Activated Partial 32.2 Thromboplast Time Sodium Level 139 Potassium Level 4.7 Chloride Level 108 Carbon Dioxide Level 23.2 Anion Gap 8 Blood Urea Nitrogen 21 Creatinine 0.95 Estimat Glomerular Filtration 77 Rate Random Glucose 110 Calcium Level 8.6 Magnesium Level 2.0 Total Bilirubin 1.9 Aspartate Amino Transf 95 (AST/SGOT) Alanine Aminotransferase 109 (ALT/SGPT) Alkaline Phosphatase 222 Total Creatine Kinase 131 Creatine Kinase MB 2.2 Troponin I LESS THAN 0.02 B-Type Natriuretic Peptide 319 Total Protein 6.9 Albumin 3.3 Lipase 162 Result Diagram: 09/05/16 1000 09/05/16 1000 Assessment and Plan Assessment and Plan 76-year-old male presenting with Nausea epigastric pain/bloating associated with elevated liver enzymes elevated alkaline phosphatase likely secondary to gallbladder pathololgy - Cholecystitis - no stones on CT General surgery consulted for evaluation. Nothing by mouth post midnight Recheck LFTs in a.m. prn pain meds History of CAD status post CABG , CMP known EF 40-45%, ? vs MR History of chronic atrial fibrillation Uncontrolled Hypertension MIldly elevated BNP Continue on Cozaar. Continue Lopressor. Clonidine prn for SBP > 160 clinically no signs of heart failure 12-lead EKG shows atrial fibrillation no acute ST-T wave changes. Will continue on patient's beta margareth. Hold Xarelto. Hold statins for now. give Lasix 10 mg IV x 1 History of BPH. Continue on Flomax. PPI for prophylaxis On Xarelto- hold for possible surgery- Discussed Condition With Patient with medical interpreter at bedside Physician Certification 2 Midnight Certification Type: Admission for Inpatient Services Order for Inpatient Services The services are ordered in accordance with Medicare regulations or non- Medicare payer requirements, as applicable. In the case of services not specified as inpatient-only, they are appropriately provided as inpatient services in accordance with the 2-midnight benchmark. Estimated LOS (days): 3 days is the estimated time the patient will need to remain in the hospital, assuming treatment plan goals are met and no additional complications. Post-Hospital Plan: Not yet determined Ibeth Huang MD Sep 05, 2016 17:14
[2016-09-05] MEDS ORDERED: cloNIDine HCL 0.1 MG TAB PO PRN (17:45)
[2016-09-05] MEDS ORDERED: ONDANSETRON HCL 4 MG/2 ML VIAL IV PUSH PRN (17:45)
[2016-09-05] MEDS ORDERED: FUROSEMIDE 20 MG/2 ML VIAL IV PUSH ONE (17:45)
[2016-09-05] MEDS ORDERED: PIPERACIL-TAZO 3.375 GM PREMIX 50 ML IV SCH (19:30)
[2016-09-05] MEDS: MORPHINE SULFATE 4 MG/ML INJ IV PUSH PRN (19:56)
[2016-09-05] MEDS: METOPROLOL TARTRATE 25 MG TAB PO SCH (19:56)
[2016-09-05] MEDS: PIPERACIL-TAZO 3.375 GM PREMIX 50 ML IV SCH (21:17)
[2016-09-06] VITALS: BP 156/91; PULSE 75; RESP 18; TEMP 97; O2SAT 95
[2016-09-06] MEDS: MORPHINE SULFATE 4 MG/ML INJ IV PUSH PRN ×4 (01:25→23:40)
[2016-09-06] MEDS: PIPERACIL-TAZO 3.375 GM PREMIX 50 ML IV SCH ×4 (01:25→20:27)
[2016-09-06 04:00] VITALS: BP 155/98; PULSE 84; RESP 20; TEMP 97.1; O2SAT 96
[2016-09-06 07:05] LABS: ALT (GPT) 67 U/L (12-78); ANION GAP 6 MEQ/L (5-15); AST (GOT) 33 U/L (15-37); BICARBONATE 25.4 MEQ/L (21.0-32.0); BLOOD UREA NITROGEN 21 MG/DL (7-18); CHLORIDE 109 MEQ/L (98-107); GLOMERULAR FILTRATION RATE 78 ML/MIN (>89); POTASSIUM 3.9 MEQ/L (3.5-5.1); SODIUM (NA) 140 MEQ/L (136-145)
[2016-09-06 07:07] LABS: ALKALINE PHOSPHATASE 177 U/L (45-117); TOTAL BILIRUBIN ADULT 1.7 MG/DL (0.2-1.0)
[2016-09-06 08:00] VITALS: BP 169/80; PULSE 77; RESP 20; TEMP 98.3; O2SAT 94
[2016-09-06] MEDS: LOSARTAN 25 MG TAB PO SCH (10:25)
[2016-09-06] MEDS: TAMSULOSIN HCL 0.4 MG CAP PO SCH (10:25)
[2016-09-06] MEDS: PANTOPRAZOLE SODIUM 40 MG VIAL IV PUSH SCH ×3 (10:25→15:00)
[2016-09-06] MEDS: METOPROLOL TARTRATE 25 MG TAB PO SCH ×2 (10:25→20:26)
--- NOTE | 2016-09-06 11:23 | EKG ---
Date Performed: 09/05/2016 Time Performed: 17:24:16 PTAGE: 76 years EKG: ATRIAL FIBRILLATION SEPTAL MYOCARDIAL INFARCTION ABNORMAL ECG Compared to prior tracing no significant change PREVIOUS TRACING : 09/05/2016 17.23 DOCTOR: Elier Henderson Interpretating Date/Time 09/07/2016 07:44:42
--- NOTE | 2016-09-06 11:33 | HHI.PR ---
Subjective Remarks now seen wiith at bedside- interpreting for us- 2 weeks having right upper quadrant pain with nausea, belching a lot also with hsitory of passsing out kidney stones frequently- last time 3 days ago - intermittent gross hematuria Objective Vitals Vital Signs Date Time Temp Pulse Resp B/P Pulse Ox O2 Delivery O2 Flow Rate FiO2 09/06/16 08:00 98.3 77 20 169/80 94 09/06/16 04:00 97.1 84 20 155/98 96 09/06/16 00:00 97.0 75 18 156/91 95 09/05/16 21:52 Room Air 09/05/16 20:07 90 09/05/16 20:00 97.9 93 20 169/97 93 09/05/16 19:50 Room Air 09/05/16 17:30 98.0 76 17 142/86 99 Room Air 09/05/16 14:20 97.8 67 17 147/81 99 Room Air 09/05/16 11:30 69 17 150/94 98 Room Air I/O 09/05/16 09/05/16 09/05/16 09/06/16 09/06/16 09/06/16 07:00 15:00 23:00 07:00 15:00 23:00 Intake Total 336 ml 330 ml Balance 336 ml 330 ml Intake Oral 0 ml IV Total 336 ml 330 ml # Voids 3 # Bowel Movements 0 Result Diagram: 09/05/16 1000 09/06/16 0607 Imaging Last Impressions Chest X-Ray 09/05/16 1001 Signed Impressions: Service Date/Time: Monday, September 05, 2016 10:28 - CONCLUSION: 1. Cardiomegaly with bilateral mostly basilar airspace disease and small effusions that have developed since June 2016. Differential diagnosis includes mild congestive heart failure. Adolfo Crook MD Gall Bladder Ultrasound 09/05/16 0000 Signed Impressions: Service Date/Time: Monday, September 05, 2016 11:50 - CONCLUSION: 1. Diffuse mild to moderate gallbladder wall thickening, nonspecific. No calculi identified. 2. Multiple cystic masses in the right kidney. One in the midpole and one in the lower pole of low level internal echoes, likely representing complex cysts. Bro Soto MD Objective Remarks awake and alet, NAD anicteric lungs clear irregular rhythm abdomen- mild right upper quadrant tenderness extremiteis no edema A/P Assessment and Plan 76 years old male RUQ pain- cholecystitis- GS ff - surgery. On Zosyn History of kidney stones- passing out stones and on and off hematuria History of BPH on Flomax get UA. renal ultrasound History of CAD status post CABG , CMP known EF 40-45% History of chronic atrial fibrillation MIldly elevated BNP Continue on Cozaar. Continue Lopressor. Clonidine prn for SBP > 160 clinically no signs of heart failure 12-lead EKG shows atrial fibrillation no acute ST-T wave changes. Will continue on patient's beta margareth. Hold Xarelto. restart statins PPI for prophylaxis On Xarelto- hold for possible surgery- Ibeth Huang MD Sep 06, 2016 11:33
[2016-09-06 12:00] VITALS: BP 160/84; PULSE 79; RESP 20; TEMP 97.5; O2SAT 96
[2016-09-06] MEDS: SODIUM CHLOR 0.9% 1000 ML INJ 1,000 ML IV SCH (14:49)
--- NOTE | 2016-09-06 15:28 | RADRPT ---
EXAM DATE/TIME: 09/06/2016 13:23 [place] COMPARISON: No previous studies available for comparison. INDICATIONS : Increased lab values. MEDICAL HISTORY : Hypertension. Hypercholesterolemia. Glaucoma. Reading glassses. Coronary artery disease. Respirator y disorders. Anticoagulant therapy. Dyspnea. Gallstones. Kidney stones. SURGICAL HISTORY : Cardiac surgery. Kidney stone removal. Uretheral stent placement. Left knee surgery. Depression. ENCOUNTER: Subsequent ACUITY: 3 weeks PAIN SCORE: 2/10 LOCATION: Bilateral Renals. MEASUREMENTS: RIGHT KIDNEY: 12.0 x 5.8 x 6.0 cm LEFT KIDNEY: 12.5 x 5.3 x 5.7 cm FINDINGS: RIGHT KIDNEY: Renal cortex is normal in thickness and echotexture. No hydronephrosis, stone, or mass. 3 simple cys ts are seen involving the right kidney. The largest measures 3 cm within the upper pole. LEFT KIDNEY: Renal cortex is normal in thickness and echotexture. No hydronephrosis, stone, or mass. A 12 mm simp le cyst involving the midpole. BLADDER: An echogenic focus with shadowing consistent with a bladder stone measuring 2.8 cm. CONCLUSION: 1. Small bilateral renal cysts. 2. 2.8 cm bladder stone. Chino Henry Jr., MD on September 06, 2016 at 15:23 Board Certified Radiologist. This report was verified electronically.
[2016-09-06 15:48] LABS: BLOOD, URINE NEG (NEG); COMMENT (UR) CULTURE INDICATED; CULTURE IF INDICATED CULTURE INDICATED; GLUCOSE,URINE NEG (NEG); KETONE, URINE NEG (NEG); NITRITE,URINE NEG (NEG); SQUAMOUS EPITHELIAL CELL URINE <1 /hpf (0-5); URINE COLOR LIGHT-YELLOW (YELLW/STRAW)
[2016-09-06 16:00] VITALS: BP 147/96; PULSE 89; RESP 20; TEMP 97.4; O2SAT 96
--- NOTE | 2016-09-06 16:53 | PD.CONS ---
HPI Consult Requested By Primary Care Physician Dg Duarte Past Family Social History Allergies: Coded Allergies: No Known Allergies (Verified , 09/05/16) Active Ordered Medications Current Medications Medications (Trade) Dose Ordered Sig/Dimas Route Start Time Stop Time Status Last Admin Sodium Chloride 2 ml 2 ml UNSCH PRN IVF 09/05/16 10:15 09/05/16 15:42 (NS 1000 ml Inj) 1,000 ml @ 42 mls/hr [id number] IV 09/05/16 15:00 09/06/16 14:49 (Cozaar) 25 mg DAILY PO 09/06/16 09:00 09/06/16 10:25 (Lopressor) 25 mg BID PO 09/05/16 21:00 09/06/16 10:25 (Flomax) 0.4 mg DAILY PO 09/06/16 09:00 09/06/16 10:25 (Protonix Inj) 40 mg Q24H IV PUSH 09/05/16 18:00 09/06/16 15:00 (Zofran Inj) 4 mg Q6HR PRN IV PUSH 09/05/16 17:45 (Catapres) 0.1 mg Q6H PRN PO 09/05/16 17:45 Morphine Sulfate 1 mg 1 mg Q4HR PRN IV PUSH 09/05/16 18:00 09/06/16 12:42 (Zosyn 3.375 Gm Premix) 50 ml @ 100 mls/hr Q6H IV 09/05/16 20:00 09/06/16 14:58 Physical Exam Vital Signs Vital Signs Date Time Temp Pulse Resp B/P Pulse Ox O2 Delivery O2 Flow Rate FiO2 09/06/16 16:00 97.4 89 20 147/96 96 09/06/16 14:50 18 09/06/16 12:00 97.5 79 20 160/84 96 09/06/16 08:00 98.3 77 20 169/80 94 09/06/16 04:00 97.1 84 20 155/98 96 09/06/16 00:00 97.0 75 18 156/91 95 09/05/16 21:52 Room Air 09/05/16 20:07 90 09/05/16 20:00 97.9 93 20 169/97 93 09/05/16 19:50 Room Air 09/05/16 17:30 98.0 76 17 142/86 99 Room Air Laboratory Laboratory Tests Test 09/05/16 09/06/16 09/06/16 17:10 06:07 14:30 Troponin I LESS THAN 0.02 Sodium Level 140 Potassium Level 3.9 Chloride Level 109 Carbon Dioxide Level 25.4 Anion Gap 6 Blood Urea Nitrogen 21 Creatinine 0.94 Estimat Glomerular Filtration 78 Rate Random Glucose 91 Calcium Level 8.3 Total Bilirubin 1.7 Aspartate Amino Transf 33 (AST/SGOT) Alanine Aminotransferase 67 (ALT/SGPT) Alkaline Phosphatase 177 Total Protein 5.8 Albumin 2.8 Urine Color LIGHT-YELLOW Urine Turbidity HAZY Urine pH 6.0 Urine Specific [place] 1.006 Urine Protein NEG Urine Glucose (UA) NEG Urine Ketones NEG Urine Occult Blood NEG Urine Nitrite NEG Urine Bilirubin NEG Urine Urobilinogen LESS THAN 2.0 Urine Leukocyte Esterase LARGE Urine RBC 6 Urine WBC 23 Urine Squamous Epithelial <1 Cells Microscopic Urinalysis Comment CULTURE INDICATED Date/Time Procedure Status Source Growth 09/06/16 14:30 Urine Culture Received Urine Random Urine Pending Result Diagram: 09/05/16 1000 09/06/16 0607 Assessment and Plan Assessment and Plan 76 yo M recent CABG with cholecystitis. Recommend treatment with antibiotics only at this time. He was started on fulls. CMP in am. Quinn Zimmerman MD Sep 06, 2016 16:53
[2016-09-06 20:00] VITALS: BP 149/83; PULSE 95; RESP 16; TEMP 97.6; O2SAT 93
[2016-09-07] VITALS (9 sets, daily range): BP systolic 141–167; BP diastolic 85–110; PULSE 62–90; RESP 16–20; TEMP 97.7–98.1; O2SAT 93–96
[2016-09-07] MEDS: PIPERACIL-TAZO 3.375 GM PREMIX 50 ML IV SCH ×4 (02:24→21:37)
[2016-09-07] MEDS: MORPHINE SULFATE 4 MG/ML INJ IV PUSH PRN ×3 (05:04→16:34)
[2016-09-07 08:05] LABS: AUTOMATED NEUTROPHIL # 6.8 TH/MM3 (1.8-7.7); BASOPHIL % 0.4 % (0.0-2.0); EOSINOPHIL # 0.4 TH/MM3 (0-0.4); EOSINOPHIL % 3.8 % (0.0-4.0); HEMATOCRIT 37.5 % (39.0-51.0); HEMO FLAGS DIFF FINAL; LYMPH % 12.7 % (9.0-44.0); LYMPHOCYTE # 1.2 TH/MM3 (1.0-4.8); MEAN CELL VOLUME 81.9 FL (80.0-100.0); MEAN CORPUSCULAR HGB CONC 32.9 % (32.0-36.0); MONO % 11.2 % (0.0-8.0); NEUT % 71.9 % (16.0-70.0); PLATELET COUNT 222 TH/MM3 (150-450); RED BLOOD COUNT 4.58 MIL/MM3 (4.50-5.90); RED CELL DISTRIBUTION WIDTH 16.5 % (11.6-17.2); WHITE BLOOD COUNT 9.5 TH/MM3 (4.0-11.0)
[2016-09-07 08:30] LABS: ALT (GPT) 52 U/L (12-78); AST (GOT) 23 U/L (15-37); BICARBONATE 25.6 MEQ/L (21.0-32.0); BLOOD UREA NITROGEN 15 MG/DL (7-18); GLOMERULAR FILTRATION RATE 63 ML/MIN (>89)
[2016-09-07 08:51] LABS: ALKALINE PHOSPHATASE 173 U/L (45-117); TOTAL BILIRUBIN ADULT 1.9 MG/DL (0.2-1.0)
[2016-09-07 08:53] LABS: ANION GAP 7 MEQ/L (5-15); CHLORIDE 107 MEQ/L (98-107); POTASSIUM 3.9 MEQ/L (3.5-5.1); SODIUM (NA) 140 MEQ/L (136-145)
[2016-09-07] MEDS: LOSARTAN 25 MG TAB PO SCH (09:08)
[2016-09-07] MEDS: METOPROLOL TARTRATE 25 MG TAB PO SCH ×2 (09:09→20:54)
[2016-09-07] MEDS: TAMSULOSIN HCL 0.4 MG CAP PO SCH (09:09)
--- NOTE | 2016-09-07 09:48 | HHI.PR ---
Subjective Subjective Notes I spoke to him using [place] video interpreter and translator. He c/o shortness of breath, severe, and keeping him from sleep. He denies nausea or difficulty with eating. Does not seem to be complaining of abdominal pain. Objective Vitals/I&O Vital Signs Date Time Temp Pulse Resp B/P Pulse Ox O2 Delivery O2 Flow Rate FiO2 09/07/16 08:00 98.0 71 20 146/102 95 09/06/16 20:00 Room Air Labs Laboratory Tests Test 09/06/16 09/07/16 14:30 07:05 Urine Color LIGHT-YELLOW Urine Turbidity HAZY Urine pH 6.0 Urine Specific Buena 1.006 Urine Protein NEG Urine Glucose (UA) NEG Urine Ketones NEG Urine Occult Blood NEG Urine Nitrite NEG Urine Bilirubin NEG Urine Urobilinogen LESS THAN 2.0 Urine Leukocyte Esterase LARGE Urine RBC 6 Urine WBC 23 Urine Squamous Epithelial <1 Cells Microscopic Urinalysis Comment CULTURE INDICATED White Blood Count 9.5 Red Blood Count 4.58 Hemoglobin 12.4 Hematocrit 37.5 Mean Corpuscular Volume 81.9 Mean Corpuscular Hemoglobin 27.0 Mean Corpuscular Hemoglobin 32.9 Concent Red Cell Distribution Width 16.5 Platelet Count 222 Mean Platelet Volume 9.3 Neutrophils (%) (Auto) 71.9 Lymphocytes (%) (Auto) 12.7 Monocytes (%) (Auto) 11.2 Eosinophils (%) (Auto) 3.8 Basophils (%) (Auto) 0.4 Neutrophils # (Auto) 6.8 Lymphocytes # (Auto) 1.2 Monocytes # (Auto) 1.1 Eosinophils # (Auto) 0.4 Basophils # (Auto) 0.0 CBC Comment DIFF FINAL Differential Comment Sodium Level 140 Potassium Level 3.9 Chloride Level 107 Carbon Dioxide Level 25.6 Anion Gap 7 Blood Urea Nitrogen 15 Creatinine 1.13 Estimat Glomerular Filtration 63 Rate Random Glucose 91 Calcium Level 8.8 Total Bilirubin 1.9 Aspartate Amino Transf 23 (AST/SGOT) Alanine Aminotransferase 52 (ALT/SGPT) Alkaline Phosphatase 173 Total Protein 6.5 Albumin 3.1 Date/Time Procedure Status Source Growth 09/06/16 14:30 Urine Culture Received Urine Random Urine Pending Narrative Exam Appears mildly sob, mild tachypnea Abd: mild distention, mild epigastric and RUQ ttp A/P Assessment and Plan 76 yo M with recent CABG, shortness of breath, likely cholecystitis vs CHF/ hepatic congestion causing gallbladder wall edema Check MRCP as bilirubin and Alk phos continue to be elevated. Cont IV antitbiotics. I think primary issue currently is SOB/CHF. Erasmo,Quinn ALEX Sep 07, 2016 09:48
--- NOTE | 2016-09-07 12:42 | RADRPT ---
EXAM DATE/TIME: 09/07/2016 12:09 [facility] COMPARISON: CHEST SINGLE AP, September 05, 2016, 10:28. INDICATIONS : Short of breath. MEDICAL HISTORY : None. SURGICAL HISTORY : CABG. ENCOUNTER: Initial ACUITY: 2 days PAIN SCORE: 0/10 LOCATION: Bilateral chest FINDINGS: There is advanced cardiomegaly. The patient is post median sternotomy. There are small bilateral effu sions and diffuse interstitial prominence suggesting congestive failure. The visualized bony structures demonstrate degenerative changes but are otherwise intact. CONCLUSION: 1. Cardiomegaly and bilateral effusion suggesting congestive failure. Loi Evans MD on September 07, 2016 at 12:39 Board Certified Radiologist. This report was verified electronically.
--- NOTE | 2016-09-07 12:59 | HHI.PR ---
Subjective Remarks patient up and ambulating- shortness of breath with activity complains of some right upper quadrant discomfort- "poquito dolor" no nuasea or vomiting + BM telemetry- a fib- variable rate Objective Vitals Vital Signs Date Time Temp Pulse Resp B/P Pulse Ox O2 Delivery O2 Flow Rate FiO2 09/07/16 12:00 97.7 66 20 141/95 93 09/07/16 08:00 98.0 71 20 146/102 95 09/07/16 04:00 97.7 78 18 167/85 96 09/07/16 04:00 97.9 71 16 144/99 95 09/06/16 20:00 97.6 95 16 149/83 93 09/06/16 20:00 Room Air 09/06/16 17:52 96 Room Air 09/06/16 16:00 97.4 89 20 147/96 96 09/06/16 14:50 18 I/O 09/06/16 09/06/16 09/06/16 09/07/16 09/07/16 09/07/16 07:00 15:00 23:00 07:00 15:00 23:00 Intake Total 330 ml 905 ml Output Total 125 ml 50 ml Balance 330 ml 780 ml -50 ml Intake Oral 0 ml IV Total 330 ml 905 ml Output Chest Tube Drainage Total 125 ml 50 ml # Voids 3 2 # Bowel Movements 0 Result Diagram: 09/07/16 0709/07/16 0705 Imaging Last Impressions Chest X-Ray 09/07/16 0000 Signed Impressions: Service Date/Time: Wednesday, September 07, 2016 12:09 - CONCLUSION: 1. Cardiomegaly and bilateral effusion suggesting congestive failure. Loi Evans MD Renal Ultrasound 09/06/16 0000 Signed Impressions: Service Date/Time: Tuesday, September 06, 2016 13:23 - CONCLUSION: 1. Small bilateral renal cysts. 2. 2.8 cm bladder stone. Chino Henry Jr., MD Gall Bladder Ultrasound 09/05/16 0000 Signed Impressions: Service Date/Time: Monday, September 05, 2016 11:50 - CONCLUSION: 1. Diffuse mild to moderate gallbladder wall thickening, nonspecific. No calculi identified. 2. Multiple cystic masses in the right kidney. One in the midpole and one in the lower pole of low level internal echoes, likely representing complex cysts. Bro Soto MD Objective Remarks awake and alet, NAD anicteric lungs no rales or wheezes irregular rhythm, 4/6 systolic murmur left sternal border to apex abdomen- mild right upper quadrant tenderness extremities no edema A/P Assessment and Plan 76 years old male RUQ pain- cholecystitis- GS ff - . work up - MRCP- On Zosyn Mild CHF - MIldly elevated BNP- XR with some effusion CAD recent CABG Valvular Heart disease . Heart ? MR murmur chronic atrial fibrillation- rate variable HTN- elevated BP readings add CCB- amlodpine 5 mg po daily Continue on Cozaar. Continue Lopressor 25 mg po bid . Clonidine prn for SBP > 160 12-lead EKG shows atrial fibrillation no acute ST-T wave changes. Will continue on patient's beta margareth. Hold Xarelto- in the event of possible GB surgery. restart statins start Lasix 20 mg IV daily. check Echo Vascular surgery consult- known to Dr. Javier History of kidney stones- passing out stones and on and off hematuria History of BPH on Flomax. US no hydronephrosis History of CAD status post CABG , CMP known EF 40-45% History of chronic atrial fibrillation PPI for prophylaxis On Xarelto- hold - in the event of need for GB surgery Ibeth Huang MD Sep 07, 2016 12:59 Ibeth Huang MD Sep 07, 2016 12:59
[2016-09-07] MEDS ORDERED: METOPROLOL TARTRATE 25 MG TAB PO SCH (14:00)
[2016-09-07] MEDS: FUROSEMIDE 20 MG/2 ML VIAL IV PUSH SCH (14:18)
[2016-09-07] MEDS: amLODIPine BESYLATE 5 MG TAB PO SCH (14:18)
[2016-09-07] MEDS: SODIUM CHLOR 0.9% 1000 ML INJ 1,000 ML IV SCH (14:38)
[2016-09-07] MEDS: PANTOPRAZOLE SODIUM 40 MG VIAL IV PUSH SCH (16:41)
--- NOTE | 2016-09-07 17:54 | MB ---
cc: MATI SHIN MD DATE OF CONSULTATION 09/06/16 REASON FOR CONSULTATION Cholecystitis. HISTORY OF PRESENT ILLNESS This is a 76-year-old male who underwent coronary artery bypass surgery on June 22, 2016 who presented to the hospital yesterday with complaints of weakness, abdominal pain and shortness of breath. He speaks [place] and my evaluation with him was performed using the [place] video security nurse. However, he was somewhat of a poor historian as well. In the emergency department, the patient was noted to have normal white blood count but with a left shift and on chemistry had elevated liver function tests. A gallbladder ultrasound was ordered by the emergency room physician and he had diffuse mild to moderate gallbladder wall thickening without gallstones identified. Today he has had some improvement in the liver function enzymes. He complains primarily to me of shortness of breath. He denies difficulty eating, nausea or bloating. He seems to indicate some abdominal pain, but when I discuss it with him he persistently talks about the shortness of breath that he feels. PAST MEDICAL HISTORY 1. Coronary artery disease, 2. Hypertension, 3. Atrial fibrillation, 4. BPH. PAST SURGICAL HISTORY 1. Coronary artery bypass graft 2. Bladder surgery 3. Left elbow surgery 4. Knee arthroscopic MEDICATIONS Home 1. Flomax 2. Cozaar 3. Xarelto 4. Lopressor 5. Atorvastatin. ALLERGIES No known allergies. FAMILY HISTORY Noncontributory SOCIAL HISTORY He speaks P[place]. He does not smoke. Very occasional alcohol. REVIEW OF SYSTEMS Negative except as mentioned in the HPI. PHYSICAL EXAMINATION GENERAL: Pleasant elderly male appears mildly tachypneic. VITAL SIGNS: Temperature 97.5, heart rate 79, respirations 20, blood pressure 160/84, 96% saturation on room air. HEAD: Normocephalic, atraumatic. EYES: Pupils equal, round, react to light bilaterally. No scleral icterus. LUNGS: Mildly tachypneic. Well-healed sternotomy incision. CARDIOVASCULAR: Regular rate and rhythm. ABDOMEN: Mild distension. Soft, mild tenderness in the right upper quadrant and epigastrium. SKIN: Warm, dry, non jaundiced. IMPRESSION AND PLAN A 76-year-old male with history of coronary artery disease and recent coronary artery bypass graft presents with shortness of breath and abdominal pain. He appears on lab work and imaging to possibly have acalculous cholecystitis. He is on Xarelto. I would recommend treatment with IV antibiotics only at this time as he may improve with just the antibiotics. I think if we can avoid an operation right now this soon after his bypass and with the shortness of breath and possible CHF exacerbation, that would be beneficial. I will continue to follow along and see how he is doing. I discussed all of this with him via the security nurse. MD LIAM Paris/ /3:08 PM /5:41 PM
--- NOTE | 2016-09-07 19:20 | RADRPT ---
EXAM DATE/TIME: 09/07/2016 18:21 [facility] COMPARISON: US ABDOMEN - GALLBLADDER, September 05, 2016, 11:50. INDICATIONS : Abdominal pain. MEDICAL HISTORY : Hypertension. Cardiovascular disease A-fib. SURGICAL HISTORY : CABG Kidney stone removal. Left elbow. Left knee. ENCOUNTER: Subsequent ACUITY: 2 day PAIN SCORE: 0/10 LOCATION: abdomen. TECHNIQUE: Multiplanar, multisequence magnetic resonance imaging of the abdomen was performed. High-resolution 3D dataset was utilized to reconstruct maximum-intensity projection (MIP) images. FINDINGS: INTRAHEPATIC BILE DUCTS: Within normal limits. No significant anatomical variant is present. EXTRAHEPATIC BILE DUCTS: The common bile duct measures 4 mm No stone or filling defect is identified. GALLBLADDER: No stones, wall thickening, or pericholecystic fluid. Gallbladder is dilated. LIVER: Normal size and signal intensity. No concerning liver lesion is identified on this non-contrast exam. PANCREAS: The main pancreatic duct is normal in size. There is no significant anatomical variant. Signal inte nsity is within normal limits. No mass is visualized on this non-contrast exam. OTHER: The remaining visualized structures demonstrate no acute abnormality on this non-contrast exam. Moder ate right-sided and small left-sided pleural effusion. Bilateral renal cysts. Cardiomegaly. CONCLUSION: 1. Gall bladder is dilated but no gallstones or inflammatory changes. No intra-or extrahepatic biliar y ductal dilatation. 2. Bilateral renal cysts. Ryan Lu MD on September 07, 2016 at 19:15 Board Certified Radiologist. This report was verified electronically.
[2016-09-08] VITALS (17 sets, daily range): BP systolic 102–140; BP diastolic 62–106; PULSE 50–80; RESP 14–18; TEMP 97.6–98.2; O2SAT 92–96
[2016-09-08] MEDS: MORPHINE SULFATE 4 MG/ML INJ IV PUSH PRN ×2 (00:22→06:43)
[2016-09-08] MEDS: PIPERACIL-TAZO 3.375 GM PREMIX 50 ML IV SCH ×4 (01:16→21:28)
[2016-09-08 07:08] LABS: ANION GAP 9 MEQ/L (5-15); AST (GOT) 15 U/L (15-37); BICARBONATE 25.3 MEQ/L (21.0-32.0); BLOOD UREA NITROGEN 13 MG/DL (7-18); CHLORIDE 106 MEQ/L (98-107); GLOMERULAR FILTRATION RATE 61 ML/MIN (>89); POTASSIUM 3.9 MEQ/L (3.5-5.1); SODIUM (NA) 140 MEQ/L (136-145)
[2016-09-08 07:09] LABS: ALT (GPT) 40 U/L (12-78)
[2016-09-08 07:11] LABS: ALKALINE PHOSPHATASE 153 U/L (45-117); TOTAL BILIRUBIN ADULT 2.1 MG/DL (0.2-1.0)
[2016-09-08] MEDS: TAMSULOSIN HCL 0.4 MG CAP PO SCH (09:06)
[2016-09-08] MEDS: LOSARTAN 25 MG TAB PO SCH (09:06)
[2016-09-08] MEDS: METOPROLOL TARTRATE 25 MG TAB PO SCH ×2 (09:06→21:00)
[2016-09-08] MEDS: amLODIPine BESYLATE 5 MG TAB PO SCH (09:06)
[2016-09-08] MEDS: FUROSEMIDE 20 MG/2 ML VIAL IV PUSH SCH (09:07)
--- NOTE | 2016-09-08 12:44 | MB ---
cc: NI VICTOR DATE OF CONSULTATION 09/08/2016 REASON FOR CONSULTATION This is a 76-year-old patient known to our service who underwent coronary artery bypass grafting x1 GUPTA to the LAD on 06/22/2016, apparently went into postop atrial fib at this time and has been on Xarelto. He had been doing fine. He completed his physical therapy at home postoperatively. He did not start cardiac rehab. Since his surgery, he has been using a walker. He has had some shortness of breath. Denies having any chest pain, however, started having some abdominal discomfort three weeks ago with also the abdominal pain. I had a seismic interpreter at the bedside. H underwent an MRI or MRCP and was found to have some gallbladder dilated. No gallstones or inflammatory changes, some renal cysts. The gallbladder ultrasound showed some diffuse mild to moderate gallbladder wall thickening. No calculi identified and was seen by general surgery and at that point felt that the patient continue on IV antibiotics and no surgical intervention at this time due to his recent surgery. However, he was also found to have a grade 2/6 systolic murmur and an echocardiogram is pending. He had a noted echo back in 2012 which showed some severe mitral regurgitation at that time, moderate regurgitation of the tricuspid valve and again the echo is pending at this time. PAST MEDICAL HISTORY Includes: 1. Coronary artery disease 2. Atrial fibrillation 3. Hypertension 4. Benign prostatic hypertrophy PAST SURGICAL HISTORY Include: 1. Bladder surgery 2. Left elbow surgery 3. Knee arthroscopic 4. Coronary artery bypass graft x1 GUPTA to the LAD in June 2016, rather unremarkable post recovery was seen and discharged from our service back in July. ALLERGIES No known allergies MEDICATIONS Home meds include: 1. Flomax 2. Cozaar 3. Xarelto 4. Lopressor 5. Atorvastatin SOCIAL HISTORY He is from [place]. He worked in the [employer] business smoked for 20 years quit 32 years ago. REVIEW OF SYSTEMS As above in the HPI, the 12-systems unremarkable. PHYSICAL EXAM VITAL SIGNS: Blood pressure 150/100, heart rate of 82, temperature 97.5. GENERAL: The patient is awake and alert in no acute distress. HEAD: Normocephalic, atraumatic. EYES: Pupils equal and reactive. EARS, NOSE, AND THROAT: Oral mucosa pink, moist. NECK: Supple. No JVD. HEART: Heart sounds S1-S2, regular rate and rhythm with a grade 2/6 systolic murmur best noted at the left sternal border. LUNGS: Clear to auscultation. No wheezes, rales or rhonchi. ABDOMEN: Mild tenderness in the right upper quadrant, mild distension. No hepatosplenomegaly. SKIN: Warm and dry. EXTREMITIES: No cyanosis, clubbing or edema. MUSCULOSKELETAL: His sternum is well-healed and approximated. IMPRESSION This is a 76-year-old male with recent coronary artery bypass grafting, GUPTA to the LAD who developed abdominal pain and then underwent workup showing acalculous cholecystitis. Recommendations per surgery is to continue his antibiotic. Would await the reevaluation of his echocardiogram with his prior history of some mitral regurgitation. Further planning per Dr. Ni Victor. Dictated by ZONIA Heath MD JACQUELIN Mccoy/FARHAT 11:56 AM 12:35 PM
--- NOTE | 2016-09-08 14:27 | ECHRPT ---
Indication: Cardiomyopathy, unspecified CONCLUSIONS BP: 141 / 95 HR: 66 Rhythm: Atrial fibrillation MEASUREMENTS (Male / Female) Normal Values Technical Quality:Fair 2D ECHO LV Diastolic Diameter PLAX 6.0 cm 4.2 - 5.9 / 3.9 - 5.3 cm LV Systolic Diameter PLAX 4.5 cm IVS Diastolic Thickness 1.1 cm 0.6 - 1.0 / 0.6 - 0.9 cm LVPW Diastolic Thickness 1.1 cm 0.6 - 1.0 / 0.6 - 0.9 cm LV Relative Wall Thickness 0.4 LVOT Diameter 2.6 cm Aortic Root Diameter 4.5 cm LA Systolic Diameter LX 3.5 cm 3.0 - 4.0 / 2.7 - 3.8 cm LA Volume Index 75.5 cm/m 16 - 28 cm/m DOPPLER AV Peak Velocity 112.1 cm/s AV Peak Gradient 5.0 mmHg AV Mean Gradient 2.5 mmHg AV Velocity Time Integral 20.4 cm AI Peak Velocity 529.5 cm/s AI Peak Gradient 112.1 mmHg AI Pressure Half Time 629.5 ms LVOT Peak Velocity 57.3 cm/s LVOT Peak Gradient 1.3 mmHg LVOT Velocity Time Integral 11.0 cm LVOT Cardiac Index 2014.0 cm/minm AV Area Cont Eq vti 2.9 cm AV Area Cont Eq pk 2.7 cm Mitral E Point Velocity 114.6 cm/s LV E' Lateral Velocity 11.9 cm/s Mitral E to LV E' Lateral Ratio 9.7 LV E' Septal Velocity 9.1 cm/s Mitral E to LV E' Septal Ratio 12.6 TR Peak Velocity 301.0 cm/s TR Peak Gradient 36.0 mmHg PV Peak Velocity 68.3 cm/s PV Peak Gradient 1.9 mmHg FINDINGS Left Ventricle Borderline normal LV systolic fx. Estimated EF 50%. Mild distal anteroseptal hypokinesis. Right Ventricle Normal right ventricular size and systolic function. Left Atrium The left atrial size is mildly dilated. Right Atrium The right atrial size is mildly dilated. Atrial Septum The interatrial septum not well visualized. Aorta Mildly dilated proximal ascending aorta. Mitral Valve Mild thickening of the mitral valve leaflets. Mild MR. Aortic Valve The aortic valve is not well visualized. There is no aortic stenosis and mild aortic valve regurgitation. Tricuspid Valve Structurally normal tricuspid valve. There is mild tricuspid valve regurgitation. The estimated pulmonary arterial pressure is 36_ mmHg. Pulmonary Valve The pulmonary valve is not well visualized. Vessels The inferior vena cava was not well visualized. Pericardium No pericardial effusion. Ankush Meraz MD, FACC Edited by: [employer] CV Resident Care Provider (Electronically Signed) Final Date:08 September 2016 14:26 Amended: 09 September 2016 13:28 MTDD
--- NOTE | 2016-09-08 14:32 | HHI.PR ---
Subjective Subjective Notes He does not have abdominal pain. He wants to eat. Objective Vitals/I&O Vital Signs Date Time Temp Pulse Resp B/P Pulse Ox O2 Delivery O2 Flow Rate FiO2 09/08/16 13:12 50 09/08/16 12:33 98.0 18 140/82 92 09/08/16 08:00 Room Air Labs Laboratory Tests Test 09/08/16 05:40 Sodium Level 140 Potassium Level 3.9 Chloride Level 106 Carbon Dioxide Level 25.3 Anion Gap 9 Blood Urea Nitrogen 13 Creatinine 1.16 Estimat Glomerular Filtration 61 Rate Random Glucose 81 Calcium Level 8.2 Total Bilirubin 2.1 Aspartate Amino Transf 15 (AST/SGOT) Alanine Aminotransferase 40 (ALT/SGPT) Alkaline Phosphatase 153 Total Protein 6.4 Albumin 3.0 Date/Time Procedure Status Source Growth 09/06/16 14:30 Urine Culture - Final Complete Urine Random Urine NO GROWTH IN 48 HOURS. Narrative Exam More comfortable appearing today Abd: mild distention, mild epigastric ttp A/P Assessment and Plan 76 yo M with recent CABG, shortness of breath, likely cholecystitis vs CHF/ hepatic congestion causing gallbladder wall edema MRCP is normal except for enlarged gallbladder. He is undergoing further cardiac workup. Regarding possible cholecystitis, I would recommend antibiotics for another 5 days or so. He can f/u with me in two weeks although I will probably not recommend cholecystectomy at this time. He does still have some elevation of bilirubin and alkaline phosphatase, and GI can be consulted for further workup if needed. It looks like he's had some mild bilirubin elevation in the past. ErasmoQuinn MD Sep 08, 2016 14:32
[2016-09-08] MEDS: PANTOPRAZOLE SODIUM 40 MG VIAL IV PUSH SCH (16:22)
--- NOTE | 2016-09-08 16:59 | HHI.PR ---
Subjective Remarks patient hungry, wanting to eat no chest pain or shortness of brreah telemetry- A fib- rate variable 4- 70s Objective Vitals Vital Signs Date Time Temp Pulse Resp B/P Pulse Ox O2 Delivery O2 Flow Rate FiO2 09/08/16 13:12 50 09/08/16 12:33 98.0 70 18 140/82 92 09/08/16 12:00 58 09/08/16 11:00 52 09/08/16 10:00 58 09/08/16 09:00 52 09/08/16 08:00 97.6 66 18 136/106 96 09/08/16 08:00 60 09/08/16 08:00 Room Air 09/08/16 06:48 14 09/08/16 03:00 97.8 74 14 137/77 95 09/07/16 23:00 62 09/07/16 23:00 97.9 62 16 152/103 93 09/07/16 20:00 Room Air 09/07/16 19:00 98.1 74 18 148/107 94 09/07/16 18:01 72 09/07/16 17:30 97.8 82 18 156/110 93 09/07/16 17:00 66 I/O 09/07/16 09/07/16 09/07/16 09/08/16 09/08/16 09/08/16 07:00 15:00 23:00 07:00 15:00 23:00 Intake Total 613 ml 674 ml Output Total 50 ml 1000 ml Balance -50 ml 613 ml -326 ml Intake Oral 240 ml IV Total 613 ml 434 ml Output Urine Total 1000 ml Stool Total 0 ml Chest Tube Drainage Total 50 ml # Voids 2 Result Diagram: 09/07/16 0705 09/08/16 0540 Imaging Last Impressions Cholangiopancreatography MRI 09/07/16 0000 Signed Impressions: Service Date/Time: Wednesday, September 07, 2016 18:21 - CONCLUSION: 1. Gall bladder is dilated but no gallstones or inflammatory changes. No intra-or extrahepatic biliary ductal dilatation. 2. Bilateral renal cysts. Ryan Lu MD Chest X-Ray 09/07/16 0000 Signed Impressions: Service Date/Time: Wednesday, September 07, 2016 12:09 - CONCLUSION: 1. Cardiomegaly and bilateral effusion suggesting congestive failure. Loi Evans MD Renal Ultrasound 09/06/16 0000 Signed Impressions: Service Date/Time: Tuesday, September 06, 2016 13:23 - CONCLUSION: 1. Small bilateral renal cysts. 2. 2.8 cm bladder stone. Chino Henry Jr., MD Gall Bladder Ultrasound 09/05/16 0000 Signed Impressions: Service Date/Time: Monday, September 05, 2016 11:50 - CONCLUSION: 1. Diffuse mild to moderate gallbladder wall thickening, nonspecific. No calculi identified. 2. Multiple cystic masses in the right kidney. One in the midpole and one in the lower pole of low level internal echoes, likely representing complex cysts. Bro Soto MD Objective Remarks awake and alet, NAD anicteric lungs no rales or wheezes irregular rhythm- rate variable , 4/6 systolic murmur left sternal border to apex abdomen- mild right upper quadrant tenderness extremities no edema A/P Assessment and Plan 76 years old male RUQ pain-acalculous cholecystitis- GS ff - . work up - MRCP- unremarkable On Zosyn ff LFTs- mile elevation of alkaline phosphatae start diet- if tolerated and no plan for further work up or procedure- PENNIE tomroow Mild CHF - EF 50%, severe MR. MIldly elevated BNP- XR with some effusion- cvlinically improved. change to po Lasix. continue ARB CAD recent CABG Valvular Heart disease - MR Chronic atrial fibrillation- rate variable- occasionally in the 40-50-70ss- will decrease Lopressor to 12.5 mg po q 12 HTN- elevated BP readings- improved increase CCB- amlodpine to 7.5 mg po daily since we decrease Lopressor dose decrease Continue on Cozaar. 12-lead EKG shows atrial fibrillation no acute ST-T wave changes. restart Xarelto Vascular surgery consult- known to Dr. Javier- ff patient along with us History of kidney stones- passing out stones and on and off hematuria History of BPH on Flomax. US no hydronephrosis start diet PPI for prophylaxis On Xarelto- OP ff up with GS - Dr. Erasmo CASPER in am if rate stable and cleared with [facility] Ibeth Huang MD Sep 08, 2016 16:59
[2016-09-08] MEDS ORDERED: PILL SPLITTER OTHER PRN (17:30)
[2016-09-08] MEDS ORDERED: RIVAROXABAN 20 MG TAB PO SCH (18:00)
[2016-09-09] VITALS (11 sets, daily range): BP systolic 118–145; BP diastolic 74–102; PULSE 58–93; RESP 16–17; TEMP 97.8–98.7; O2SAT 92–95
[2016-09-09] MEDS: PIPERACIL-TAZO 3.375 GM PREMIX 50 ML IV SCH ×2 (01:52→09:07)
[2016-09-09] MEDS ORDERED: amLODIPine BESYLATE 5 MG TAB PO SCH (09:00)
[2016-09-09] MEDS ORDERED: FUROSEMIDE 20 MG TAB PO SCH (09:00)
[2016-09-09] MEDS: TAMSULOSIN HCL 0.4 MG CAP PO SCH (09:02)
[2016-09-09] MEDS: METOPROLOL TARTRATE 25 MG TAB PO SCH (09:03)
[2016-09-09] MEDS: LOSARTAN 25 MG TAB PO SCH (09:04)
[2016-09-09] MEDS ORDERED: FURO20TA PO (10:36)
[2016-09-09] MEDS ORDERED: AMLO5 PO (10:36)
[2016-09-09] MEDS ORDERED: METO25TA3 PO (10:36)
[2016-09-09] MEDS ORDERED: K-TA10TA PO (10:36)
--- NOTE | 2016-09-09 10:38 | HHI.DS ---
Discharge Summary Admission Date Sep 05, 2016 at 15:02 Discharge Date: Sep 09, 2016 Admitting Diagnosis Acute cholecystitis (1) Acute cholecystitis ICD Code: K81.0 (2) Afib ICD Code: I48.91 (3) Hypertension ICD Code: I10 (4) Hyperlipemia ICD Code: E78.5 Procedures None. Brief History - From Admission 76-year-old male from [place], Vietnamese-speaking history obtained with the help of a Vietnamese speaking staff at bedside. No family at bedside Apparently for the past 2 weeks now patient having complaining of epigastric discomfort/bloating sensation radiating to the chest and feels like he has to catch his breath. For the past 1-1/2 weeks complaining of poor by mouth appetite.Associated with some nausea. Patient denies any problem with bowel movements constipation Baseline ambulates with a walker. Persistence of symptoms prompted consult to ER Patient denies any fever chills On evaluation with elevated liver enzymes, gallbladder thickening and admitted for further evaluation with general surgery consult. Patient with history of CAD status post CABG last July an ejection fraction then shows a 40-45%. CBC/BMP: 09/07/16 0705 09/08/16 0540 Significant Findings Laboratory Tests Test 09/06/16 09/07/16 09/08/16 14:30 07:05 05:40 Urine Turbidity HAZY (CLEAR) Urine Leukocyte Esterase LARGE (NEG) Urine RBC 6 /hpf (0-3) Urine WBC 23 /hpf (0-5) Hemoglobin 12.4 GM/DL (13.0-17.0) Hematocrit 37.5 % (39.0-51.0) Neutrophils (%) (Auto) 71.9 % (16.0-70.0) Monocytes (%) (Auto) 11.2 % (0.0-8.0) Monocytes # (Auto) 1.1 TH/MM3 (0-0.9) Estimat Glomerular Filtration 63 ML/MIN (>89) 61 ML/MIN (>89) Rate Total Bilirubin 1.9 MG/DL 2.1 MG/DL (0.2-1.0) (0.2-1.0) Alkaline Phosphatase 173 U/L 153 U/L (45-117) (45-117) Albumin 3.1 GM/DL 3.0 GM/DL (3.4-5.0) (3.4-5.0) Calcium Level 8.2 MG/DL (8.5-10.1) Imaging Last Impressions Cholangiopancreatography MRI 09/07/16 Signed Impressions: Service Date/Time: Wednesday, September 07, 2016 18:21 - CONCLUSION: 1. Gall bladder is dilated but no gallstones or inflammatory changes. No intra-or extrahepatic biliary ductal dilatation. 2. Bilateral renal cysts. Ryan Lu MD Chest X-Ray 09/07/16 Signed Impressions: Service Date/Time: Wednesday, September 07, 2016 12:09 - CONCLUSION: 1. Cardiomegaly and bilateral effusion suggesting congestive failure. Loi Evans MD Renal Ultrasound 09/06/16 Signed Impressions: Service Date/Time: Tuesday, September 06, 2016 13:23 - CONCLUSION: 1. Small bilateral renal cysts. 2. 2.8 cm bladder stone. Chino Henry Jr., MD Gall Bladder Ultrasound 09/05/16 0000 Signed Impressions: Service Date/Time: Monday, September 05, 2016 11:50 - CONCLUSION: 1. Diffuse mild to moderate gallbladder wall thickening, nonspecific. No calculi identified. 2. Multiple cystic masses in the right kidney. One in the midpole and one in the lower pole of low level internal echoes, likely representing complex cysts. Bro Soto MD PE at Discharge awake and alet, NAD anicteric lungs no rales or wheezes irregular rhythm- rate variable , 4/6 systolic murmur left sternal border to apex abdomen- mild right upper quadrant tenderness extremities no edema Pt update on day of discharge Patient is doing well. Complains of some left sided upper abdominal pain. No fever, chills. Hospital Course Ms. Clark 76-year-old Vietnamese-speaking gentleman who presented to the emergency department on 09/05/2016 due to epigastric is comfort/bloating sensation radiating to the chest. On evaluation with elevated liver enzymes, gallbladder thickening and admitted for further evaluation with general surgery consult. Patient with history of CAD status post CABG last July an ejection fraction then shows a 40-45%. Work up indicated acalculous cholecystitis.General surgery recommended no immediate surgical intervention. Patient was started on antibiotics Zosyn. Due to recent history of CABG, cardiothoracic surgery was consulted. Based on general surgery recommendation, patient was continued on oral antibiotics for 5 days. Patient was subsequently discharged home with follow-up with PCP, GI, general surgery. Pt Condition on Discharge: Good Discharge Disposition: Discharge Home Discharge Time: > 30 minutes Discharge Instructions DIET: Follow Instructions for: Heart Healthy Diet Activities you can perform: Regular-No Restrictions Follow up Referrals: Gastroenterology - 1 Week PCP Follow-up - 1 Week Surgical - 2 Weeks with Quinn Zimmerman MD New Medications: Oxycodone-Acetaminophen (Percocet) 5-325 mg Tab 1 TAB PO Q6H PRN PAIN #20 Ref 0 TAB Potassium Chloride ER (K-Tab) 10 Meq Tab 10 MEQ PO DAILY Electrolyte Replacement #30 Ref 0 TAB Amlodipine (Norvasc) 5 Mg Tab 7.5 MG PO DAILY Blood Pressure Management #30 TAB Furosemide (Furosemide) 20 Mg Tab 20 MG PO DAILY Heart #30 TAB Metoprolol Tartrate (Metoprolol Tartrate) 25 Mg Tab 12.5 MG PO Q12HR Heart #90 TAB Continued Medications: Atorvastatin (Atorvastatin) 40 Mg Tab 40 MG PO HS Cholesterol Management #30 Ref 0 TAB Losartan (Cozaar) 25 Mg Tab 25 MG PO DAILY Blood Pressure Management #30 Ref 3 TAB Rivaroxaban (Xarelto) 20 Mg Tab 20 MG PO DAILY Blood Clot Prevention Ref 0 TAB Tamsulosin (Flomax) 0.4 Mg Cap 0.4 MG PO DAILY Manage Prostate Problems #30 Ref 3 CAP Discontinued Medications: Metoprolol Tartrate (Metoprolol Tartrate) 25 Mg Tab 25 MG PO BID Blood Pressure Management #60 Ref 3 TAB Sandrine Smith DO Sep 09, 2016 10:38 am
[2016-09-09] MEDS ORDERED: PERC5TAB12 PO (13:28)
[2016-09-09] MEDS ORDERED: CIPR-9 PO (13:51)
[2016-09-09] MEDS ORDERED: METR-1 PO (13:51)
--- NOTE | 2016-09-21 12:06 | PQ ---
Physician Query Response Document PATIENT: RAJAN ASTORGA : 1940 ADMIT DATE: 09/05/2016 3:02 PM DISCH DATE: 09/09/2016 2:37 PM RESPONDING PROVIDER #: Lizet QUERY TEXT: CHF Acuity and Type Congestive Heart Failure is documented in the Medical Record. Please document the type and acuity (in cludes probable or suspected) Such as: Type: -- Systolic -- Diastolic -- Combined -- Other, please specify Acuity: -- Acute -- Chronic -- Acute on chronic -- Other, please specify PLEASE CALL [facility] 2 EXT [phone] FOR ASSISTANCE The patient's Clinical Indicators include: PER PROGRESS NOTE: Assessment and Plan Mild CHF - MIldly elevated BNP- XR with some effusion start Lasix 20 mg IV daily. check Echo 09/05/16 [id number] 09/08/16 ECHO SHOWS BORDERLINE SYSTOLIC FUNCTION WITH EF=50% Query created by: Jocelyn Huffman on 09/08/2016 3:00 PM RESPONSE TEXT: Acute systolic heart failure- EF 50% Electronically signed by: Ibeth Huang MD 09/21/2016 12:02 PM
== END 2016-09-09 14:37 | disposition home or self-care (01) | DRG 444 ==
LOC: NEPC 09:03 → NEDA 15:02 → N04B 18:20 → HCIS 09-07 16:08
PROVIDERS: ADMIT Hospitalist; ATTEND Hospitalist
DX: K81.0 Acute cholecystitis (principal); I50.21 Acute systolic (congestive) heart failure; I48.2 Chronic atrial fibrillation; I34.0 Nonrheumatic mitral (valve) insufficiency; I11.0 Hypertensive heart disease with heart failure; E78.5 Hyperlipidemia, unspecified; Z95.1 Presence of aortocoronary bypass graft; K82.8 Other specified diseases of gallbladder; N40.1 Benign prostatic hyperplasia with lower urinary tract symptoms; Z79.01 Long term (current) use of anticoagulants; Z79.899 Other long term (current) drug therapy; Z87.442 Personal history of urinary calculi; H40.9 Unspecified glaucoma; Z87.891 Personal history of nicotine dependence; I25.10 Atherosclerotic heart disease of native coronary artery without angina pectoris
CPT/HCPCS: 71010; 74181; 76377; 76705; 76775; 80053; 81001; 82550; 82552; 83690; 83735; 83880; 84484; 85025; 85610; 85730; 87086; 93005; 93306; 96365; C9113; J1940; J2270; J2405; J2543; J7030

== ENCOUNTER 2016-11-11 08:02 | Emergency (ER) | payer OTHER, MEDICAID ==
[~2016-11-11] VITALS: Ht 177.8 cm; Wt 78.0 kg
[~2016-11-11 08:02] MED LIST changes: +AMLO5 PO; +CIPR-9 PO; +FURO20TA PO; +K-TA10TA PO; +METR-1 PO; -OXYC1TAB36 PO; -PANT40TA3 PO; +PERC5TAB12 PO; -THERM PO
[2016-11-11 08:04] VITALS: BP 173/104; PULSE 98; RESP 20; TEMP 97.3; O2SAT 92
[2016-11-11] MEDS ORDERED: SODIUM CHLORIDE 0.9% FLUSH 10 ML FLUSH IVF PRN (08:30)
[2016-11-11 08:33] VITALS: BP 154/96; PULSE 72; RESP 16; O2SAT 96
[2016-11-11 08:47] LABS: AUTOMATED NEUTROPHIL # 6.8 TH/MM3 (1.8-7.7); BASOPHIL % 0.4 % (0.0-2.0); EOSINOPHIL # 0.2 TH/MM3 (0-0.4); EOSINOPHIL % 2.8 % (0.0-4.0); HEMATOCRIT 34.1 % (39.0-51.0); HEMO FLAGS DIFF FINAL; LYMPHOCYTE # 0.8 TH/MM3 (1.0-4.8); MEAN CELL VOLUME 78.8 FL (80.0-100.0); MEAN CORPUSCULAR HEMOGLOBIN 26.4 PG (27.0-34.0); MEAN CORPUSCULAR HGB CONC 33.4 % (32.0-36.0); MONO % 10.5 % (0.0-8.0); NEUT % 77.3 % (16.0-70.0); PLATELET COUNT 159 TH/MM3 (150-450); RED BLOOD COUNT 4.33 MIL/MM3 (4.50-5.90); RED CELL DISTRIBUTION WIDTH 17.8 % (11.6-17.2); WHITE BLOOD COUNT 8.8 TH/MM3 (4.0-11.0)
[2016-11-11 08:54] LABS: APTT (PATIENT) 28.4 SEC (24.3-30.1); INTERNATIONAL NORMALIZED RATIO 1.1 RATIO; PROTHROMBIN TIME - PATIENT 12.6 SEC (9.8-11.6)
--- NOTE | 2016-11-11 08:56 | PD ---
HPI Chief Complaint: Cardiac Complaint Time Seen by Provider: 08:15 Travel History International Travel<30 days: No Contact w/Intl Traveler<30days: No Traveled to known affect area: No History of Present Illness HPI Patient is a 76-year-old male who is Kyrgyz-speaking, presents to emergency room with multiple complaints. Patient reports that for the past 2 weeks, he has been having increased shortness of breath. Patient reports that shortness of breath is worse at nighttime and when lying down flat, reports that he has noticed that he has not been able to walk without feeling sob. Reports that he has also been having heart palpitations. Denies chest pain. Denies cough or congestion. Patient also reports that he has been feeling a "jumping feeling" in his abdomen. Reports that this has been ongoing for the past 2-3 weeks. Patient denies any nausea or vomiting, denies any constipation or diarrhea. Reports that he feels bloated his abdomen, denies any abdominal pain at this time. PFSH Past Medical History Hx Anticoagulant Therapy: Yes Blood Disorders: No Anxiety: No Depression: Yes Heart Rhythm Problems: No Cancer: No Cardiovascular Problems: Yes High Cholesterol: Yes Chest Pain: No Congestive Heart Failure: No Coronary Artery Disease: Yes Diabetes: No Diminished Hearing: No Endocrine: No Gastrointestinal Disorders: Yes (GALLBLADDER STONES) Glaucoma: Yes (jacobo) Genitourinary: Yes Hepatitis: No Hiatal Hernia: No Hypertension: Yes Immune Disorder: No Implanted Vascular Access Dvce: No Kidney Stones: Yes Musculoskeletal: Yes (L KNEE SURGERY) Neurologic: No Psychiatric: No Reproductive: No Respiratory: Yes Myocardial Infarction: No Thyroid Disease: No Past Surgical History Abdominal Surgery: Yes (GALLSTONES) AICD: No Body Medical Devices: NONE PER PT Cardiac Surgery: Yes Genitourinary Surgery: Yes (02/15- SURGERY FOR KIDNEY STONE REMOVAL/URETHERAL STENT PLACEMENT) Pacemaker: No Other Surgery: Yes Social History Alcohol Use: No Tobacco Use: No Substance Use: No Allergies-Medications (Allergen,Severity, Reaction): Coded Allergies: No Known Allergies (Verified , 11/11/16) Reported Meds & Prescriptions Reported Meds & Active Scripts Active Macrobid (Nitrofurantoin Monoh/Nitrofur Macro) 100 Mg Cap 100 Mg PO BID 10 Days Furosemide 20 Mg Tab 20 Mg PO DAILY Norvasc (Amlodipine Besylate) 5 Mg Tab 7.5 Mg PO DAILY Metoprolol Tartrate 25 Mg Tab 12.5 Mg PO Q12HR Flomax (Tamsulosin HCl) 0.4 Mg Cap 0.4 Mg PO DAILY Cozaar (Losartan Potassium) 25 Mg Tab 25 Mg PO DAILY Reported Atorvastatin (Atorvastatin Calcium) 40 Mg Tab 40 Mg PO HS Xarelto (Rivaroxaban) 20 Mg Tab 20 Mg PO DAILY Review of Systems General / Constitutional: No: Fever Eyes: No: Visual changes HENT: No: Headaches Cardiovascular: Positive: Palpitations, No: Chest Pain or Discomfort Respiratory: Positive: Shortness of Breath Gastrointestinal: No: Nausea, Vomiting, Abdominal Pain Genitourinary: No: Dysuria Musculoskeletal: No: Pain Skin: No Rash Neurologic: No: Weakness Psychiatric: No: Depression Endocrine: No: Polydipsia Hematologic/Lymphatic: No: Easy Bruising Physical Exam Narrative GENERAL: mild distress SKIN: Focused skin assessment warm/dry. HEAD: Atraumatic. Normocephalic. EYES: Pupils equal and round. No scleral icterus. No injection or drainage. ENT: No nasal bleeding or discharge. Mucous membranes pink and moist. NECK: Trachea midline. No JVD. CARDIOVASCULAR: Irregular rate and rhythm. No murmur appreciated. RESPIRATORY: No accessory muscle use. Clear to auscultation. Breath sounds equal bilaterally. GASTROINTESTINAL: Abdomen soft, non-tender, nondistended. Hepatic and splenic margins not palpable. MUSCULOSKELETAL: No obvious deformities. No clubbing. No cyanosis. No edema. NEUROLOGICAL: Awake and alert. No obvious cranial nerve deficits. Motor grossly within normal limits. Normal speech. PSYCHIATRIC: Appropriate mood and affect; insight and judgment normal. Data Data Last Documented VS Vital Signs Date Time Temp Pulse Resp B/P Pulse Ox O2 Delivery O2 Flow Rate FiO2 11/11/16 11:38 72 16 172/86 95 11/11/16 10:06 Nasal Cannula 2 11/11/16 08:04 97.3 Orders Electrocardiogram (11/11/16 08:18) B-Type Natriuretic Peptide (11/11/16 08:18) Ckmb (Isoenzyme) Profile (11/11/16 08:18) Complete Blood Count With Diff (11/11/16 08:18) Comprehensive Metabolic Panel (11/11/16 08:18) Magnesium (Mg) (11/11/16 08:18) Prothrombin Time / Inr (Pt) (11/11/16 08:18) Act Partial Throm Time (Ptt) (11/11/16 08:18) Troponin I (11/11/16 08:18) Lipase (11/11/16 08:18) Chest, Single Ap (11/11/16 08:18) Ecg Monitoring (11/11/16 08:18) Iv Access Insert/Monitor (11/11/16 08:18) Oximetry (11/11/16 08:18) Sodium Chloride 0.9% Flush (Ns Flush) (11/11/16 08:30) Ct Pulmonary Angiogram (11/11/16 08:48) CKMB (11/11/16 08:20) CKMB% (11/11/16 08:20) Urinalysis - C+S If Indicated (11/11/16 09:22) Furosemide Inj (Lasix Inj) (11/11/16 09:45) Urine Culture (11/11/16 09:20) Ceftriaxone Inj (Rocephin Inj) (11/11/16 10:00) Us Abdomen Gallbladder (11/11/16 ) Iohexol 350 Inj (Omnipaque 350 Inj) (11/11/16 11:05) Labs Laboratory Tests Test 11/11/16 11/11/16 08:20 09:20 White Blood Count 8.8 TH/MM3 Red Blood Count 4.33 MIL/MM3 Hemoglobin 11.4 GM/DL Hematocrit 34.1 % Mean Corpuscular Volume 78.8 FL Mean Corpuscular Hemoglobin 26.4 PG Mean Corpuscular Hemoglobin 33.4 % Concent Red Cell Distribution Width 17.8 % Platelet Count 159 TH/MM3 Mean Platelet Volume 9.0 FL Neutrophils (%) (Auto) 77.3 % Lymphocytes (%) (Auto) 9.0 % Monocytes (%) (Auto) 10.5 % Eosinophils (%) (Auto) 2.8 % Basophils (%) (Auto) 0.4 % Neutrophils # (Auto) 6.8 TH/MM3 Lymphocytes # (Auto) 0.8 TH/MM3 Monocytes # (Auto) 0.9 TH/MM3 Eosinophils # (Auto) 0.2 TH/MM3 Basophils # (Auto) 0.0 TH/MM3 CBC Comment DIFF FINAL Differential Comment Prothrombin Time 12.6 SEC Prothromb Time International 1.1 RATIO Ratio Activated Partial 28.4 SEC Thromboplast Time Sodium Level 140 MEQ/L Potassium Level 3.5 MEQ/L Chloride Level 109 MEQ/L Carbon Dioxide Level 22.9 MEQ/L Anion Gap 8 MEQ/L Blood Urea Nitrogen 19 MG/DL Creatinine 0.89 MG/DL Estimat Glomerular Filtration 83 ML/MIN Rate Random Glucose 90 MG/DL Calcium Level 7.9 MG/DL Magnesium Level 2.0 MG/DL Total Bilirubin 1.2 MG/DL Aspartate Amino Transf 52 U/L (AST/SGOT) Alanine Aminotransferase 61 U/L (ALT/SGPT) Alkaline Phosphatase 170 U/L Total Creatine Kinase 101 U/L Creatine Kinase MB 1.6 NG/ML Troponin I 0.02 NG/ML B-Type Natriuretic Peptide 596 PG/ML Total Protein 6.3 GM/DL Albumin 3.2 GM/DL Lipase 157 U/L Urine Color YELLOW Urine Turbidity HAZY Urine pH 5.5 Urine Specific Kellogg 1.021 Urine Protein 30 mg/dL Urine Glucose (UA) NEG mg/dL Urine Ketones NEG mg/dL Urine Occult Blood SMALL Urine Nitrite POS Urine Bilirubin NEG Urine Urobilinogen LESS THAN 2.0 MG/DL Urine Leukocyte Esterase LARGE Urine RBC 16 /hpf Urine WBC /hpf Urine WBC Clumps FEW Urine Squamous Epithelial <1 /hpf Cells Urine Bacteria MANY /hpf Urine Mucus FEW /lpf Microscopic Urinalysis Comment CULTURE INDICATED MDM Medical Decision Making Medical Screen Exam Complete: Yes Emergency Medical Condition: Yes Medical Record Reviewed: Yes Interpretation(s) EKG at 0823: Afib at 78bpm, qt/qtc: 401/434 Vital Signs Date Time Temp Pulse Resp B/P Pulse Ox O2 Delivery O2 Flow Rate FiO2 11/11/16 08:33 72 16 154/96 96 Room Air 11/11/16 08:33 96 Room Air 11/11/16 08:04 97.3 98 20 173/104 92 Room Air Differential Diagnosis Differential includes ACS, arrhythmia, coronary disease, cholelithiasis, CHF exacerbation, electrolyte abnormality, PE Narrative Course 76-year-old male who presents to emergency room for evaluation of abdominal pain and shortness of breath. Patient has been having shortness of breath for the past 2 weeks, worse with laying flat. Reports that he is also having dyspnea on exertion. Reports that he has also having palpitations, no overt chest pain. No fever/chills. No n/v. Patient also with complaints of "jumping sensation" to abdomen. Reports that he was admitted to the hospital in September for similar symptoms. patient was placed on a master yacht upon arrival to ER. labs including xray of chest ordered Previous records reviewed, patient was made to the hospital on September 05, 2016 and was discharged on September 09, 2016 after he was treated for acute cholecystitis. Patient does have history of A. fib, hypertension, hyperlipidemia, CAD status post CABG last July with EF 40-45% During his last admission, patient presented to the emergency with complaints of 2 weeks of epigastric pain and discomfort radiating to his chest with shortness of breath. Patient was sent to have elevated liver enzymes as well as gallbladder thickening and was evaluated by general surgery. Patient was found to have a calculus cholecystitis, there were no surgical interventions by general surgery. Patient was subsequently discharged home with follow-up with PCP, GI as outpatient as well as general surgery. It appears the patient presents the emergency with similar symptoms previous admission. Vital Signs Date Time Temp Pulse Resp B/P Pulse Ox O2 Delivery O2 Flow Rate FiO2 11/11/16 08:33 72 16 154/96 96 Room Air 11/11/16 08:33 96 Room Air 11/11/16 08:04 97.3 98 20 173/104 92 Room Air Laboratory Tests Test 11/11/16 11/11/16 08:20 09:20 White Blood Count 8.8 TH/MM3 (4.0-11.0) Red Blood Count 4.33 MIL/MM3 (4.50-5.90) Hemoglobin 11.4 GM/DL (13.0-17.0) Hematocrit 34.1 % (39.0-51.0) Mean Corpuscular Volume 78.8 FL (80.0-100.0) Mean Corpuscular Hemoglobin 26.4 PG (27.0-34.0) Mean Corpuscular Hemoglobin 33.4 % Concent (32.0-36.0) Red Cell Distribution Width 17.8 % (11.6-17.2) Platelet Count 159 TH/MM3 (150-450) Mean Platelet Volume 9.0 FL (7.0-11.0) Neutrophils (%) (Auto) 77.3 % (16.0-70.0) Lymphocytes (%) (Auto) 9.0 % (9.0-44.0) Monocytes (%) (Auto) 10.5 % (0.0-8.0) Eosinophils (%) (Auto) 2.8 % (0.0-4.0) Basophils (%) (Auto) 0.4 % (0.0-2.0) Neutrophils # (Auto) 6.8 TH/MM3 (1.8-7.7) Lymphocytes # (Auto) 0.8 TH/MM3 (1.0-4.8) Monocytes # (Auto) 0.9 TH/MM3 (0-0.9) Eosinophils # (Auto) 0.2 TH/MM3 (0-0.4) Basophils # (Auto) 0.0 TH/MM3 (0-0.2) CBC Comment DIFF FINAL Differential Comment Prothrombin Time 12.6 SEC (9.8-11.6) Prothromb Time International 1.1 RATIO Ratio Activated Partial 28.4 SEC Thromboplast Time (24.3-30.1) Sodium Level 140 MEQ/L (136-145) Potassium Level 3.5 MEQ/L (3.5-5.1) Chloride Level 109 MEQ/L (98-107) Carbon Dioxide Level 22.9 MEQ/L (21.0-32.0) Anion Gap 8 MEQ/L (5-15) Blood Urea Nitrogen 19 MG/DL (7-18) Creatinine 0.89 MG/DL (0.60-1.30) Estimat Glomerular Filtration 83 ML/MIN (>89) Rate Random Glucose 90 MG/DL (74-106) Calcium Level 7.9 MG/DL (8.5-10.1) Magnesium Level 2.0 MG/DL (1.5-2.5) Total Bilirubin 1.2 MG/DL (0.2-1.0) Aspartate Amino Transf 52 U/L (15-37) (AST/SGOT) Alanine Aminotransferase 61 U/L (12-78) (ALT/SGPT) Alkaline Phosphatase 170 U/L (45-117) Total Creatine Kinase 101 U/L (39-308) Creatine Kinase MB 1.6 NG/ML (0.5-3.6) Troponin I 0.02 NG/ML (0.02-0.05) B-Type Natriuretic Peptide 596 PG/ML (0-100) Total Protein 6.3 GM/DL (6.4-8.2) Albumin 3.2 GM/DL (3.4-5.0) Lipase 157 U/L (73-393) Urine Color YELLOW (YELLW/STRAW) Urine Turbidity HAZY (CLEAR) Urine pH 5.5 (5.0-8.5) Urine Specific Kellogg 1.021 (1.002-1.035) Urine Protein 30 mg/dL (NEG-TRACE) Urine Glucose (UA) NEG mg/dL (NEG) Urine Ketones NEG mg/dL (NEG) Urine Occult Blood SMALL (NEG) Urine Nitrite POS (NEG) Urine Bilirubin NEG (NEG) Urine Urobilinogen LESS THAN 2.0 MG/DL (LESS THAN 2.0) Urine Leukocyte Esterase LARGE (NEG) Urine RBC 16 /hpf (0-3) Urine WBC /hpf (0-5) Urine WBC Clumps FEW (NONE) Urine Squamous Epithelial <1 /hpf (0-5) Cells Urine Bacteria MANY /hpf (NONE) Urine Mucus FEW /lpf (OCC) Microscopic Urinalysis Comment CULTURE INDICATED X-ray with pulmonary venous congestion, stated currently, BNP 596, patient most likely short of breath due to CHF exacerbation - lasix 40mg iv ordered WBC 8.8, hemoglobin 11.4, hematocrit 34.1, platelets 159 Sodium 140, potassium 3.5, BUN 19, creatinine 0.89 T bili 1.2 (decreased from previous 2.1 on 09/08/16) AST 52 ALT 61 Alk phos: 170 UA positive for large leuk esterase, few white blood cell clumps, many bacteria , positive nitrites, innumerable white blood cell - UC pending, will give dose of rocephin and treat for uti Patient was recently admitted to the hospital and treated for acalculus cholecystitis- and was treated with a course of antibiotics. He was seen by Dr. Zimmerman during previous admission. Given elevated LFT's - will repeat RUQ US Last Impressions CT Angiography 11/11/16 0848 Signed Impressions: Service Date/Time: November 10:57 - CONCLUSION: 1. No evidence of pulmonary embolism. 2. Increased interstitial markings bilaterally with bilateral effusions characteristic of congestive heart failure. 3. Moderate diffuse cardiomegaly. 4. 3.5 cm right renal cyst. Teodoro Tamayo MD Chest X-Ray 11/11/16 0818 Signed Impressions: Service Date/Time: November 08:19 - CONCLUSION: Pulmonary venous congestion. Stable cardiomegaly. Teodoro Tamayo MD Gall Bladder Ultrasound 11/11/16 0000 Signed Impressions: Service Date/Time: November 10:15 - CONCLUSION: 1. There appears to be interval development of some right sided hydronephrosis compared to the prior studies. If clinically indicated, a CT scan of the abdomen and pelvis could be performed for further evaluation. 2. There continues to be several benign-appearing right renal cysts. 3. Otherwise unremarkable and stable study. Teodoro Tamayo MD Repeat ultrasound of the right upper quadrant: Right-sided hydronephrosis ( renal function normal) , benign-appearing renal cyst, gallbladder wall is not thickened, no definite stones. Pulmonary angiogram shows no evidence of PE, interstitial markings bilaterally with bilateral effusion consistent with CHF. patient was given IV lasix and diuresed well. He will follow with his it systems manager as soon as possible and will call for appointment once he leaves the hospital today Plan to have patient follow up with his primary care doctor for further evaluation of reported hydronephrosis, patient is safe to be discharged with outpatient follow up as he does have normal renal function, RUQ not consistent with acute cholecystitis. He will need to follow-up with a GI doctor as outpatient as well. 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 Patient feels well to go home. Signs and symptoms of when to return to the ER was reviewed with patient in detail Diagnosis Primary Impression: CHF exacerbation Qualified Code: I50.9 - Acute on chronic congestive heart failure, unspecified congestive heart failure type Additional Impressions: UTI (urinary tract infection) Qualified Code: N30.01 - Acute cystitis with hematuria Transaminitis Hydronephrosis Renal cyst Patient Instructions: General Instructions Additional Instructions: Please provide patient with a copy of his lab work and studies at discharge Please follow up with your primary care doctor, it systems manager as well as stitch bonder machine operator helper as soon as possible, please bring a copy of your lab work and studies with you to your appointment Return to ER if symptoms worsen or progress Return to ER as needed. Please take all medications as prescribed Please follow up with all cultures from today Return to ER if symptoms worsen/progress Scripts Nitrofurantoin Monohydrate Macrocrystals (Macrobid)100 Mg [id number] Mg PO BID 10 Days Ref 0 Prov:Sandy Cooper DO 11/11/16 Disposition: 01 DISCHARGE HOME Condition: Stable Sandy Cooper DO Nov 11, 2016 08:56
[2016-11-11 09:02] LABS: ALT (GPT) 61 U/L (12-78); ANION GAP 8 MEQ/L (5-15); AST (GOT) 52 U/L (15-37); BICARBONATE 22.9 MEQ/L (21.0-32.0); BLOOD UREA NITROGEN 19 MG/DL (7-18); CHLORIDE 109 MEQ/L (98-107); GLOMERULAR FILTRATION RATE 83 ML/MIN (>89); POTASSIUM 3.5 MEQ/L (3.5-5.1); SODIUM (NA) 140 MEQ/L (136-145)
--- NOTE | 2016-11-11 09:04 | RADRPT ---
EXAM DATE/TIME: 11/11/2016 08:19 [facility] COMPARISON: CHEST SINGLE AP, September 07, 2016, 12:09. INDICATIONS : Short of breath MEDICAL HISTORY : Cardiovascular disease. SURGICAL HISTORY : CABG. ENCOUNTER: Initial ACUITY: 1 day PAIN SCORE: 0/10 LOCATION: chest FINDINGS: A single view of the chest demonstrates the lungs to be symmetrically aerated without evidence of mas s, infiltrate or effusion. There is some prominence of the pulmonary vasculature suggestive of pulmo nary venous congestion. There is moderate stable cardiomegaly. There is evidence of previous cardioth oracic surgery. No definite pleural effusions.. CONCLUSION: Pulmonary venous congestion. Stable cardiomegaly. Teodoro Tamayo MD on November 11, 2016 at 9:01 Board Certified Radiologist. This report was verified electronically.
[2016-11-11 09:09] LABS: ALKALINE PHOSPHATASE 170 U/L (45-117); CREATINE KINASE 101 U/L (39-308); TOTAL BILIRUBIN ADULT 1.2 MG/DL (0.2-1.0)
[2016-11-11 09:22] LABS: CKMB 1.6 NG/ML (0.5-3.6)
[2016-11-11 09:42] LABS: BACTERIA, URINE MANY /hpf; BLOOD, URINE SMALL (NEG); COMMENT (UR) CULTURE INDICATED; CULTURE IF INDICATED CULTURE INDICATED; GLUCOSE,URINE NEG (NEG); KETONE, URINE NEG (NEG); MUCUS URINE FEW /lpf (OCC); PH, URINE 5.5 (5.0-8.5); SQUAMOUS EPITHELIAL CELL URINE <1 /hpf (0-5); URINE COLOR YELLOW (YELLW/STRAW)
[2016-11-11 09:45] LABS: NITRITE,URINE POS (NEG)
[2016-11-11] MEDS ORDERED: FUROSEMIDE 40 MG/4 ML VIAL IV PUSH ONE (09:45)
[2016-11-11] MEDS ORDERED: cefTRIAXone INJ 1,000 MG in SODIUM CHLORIDE 0.9% INJ 100 ML IV ONE (10:00)
[2016-11-11 10:06] VITALS: BP 163/95; PULSE 74; RESP 16; O2SAT 98
[2016-11-11] MEDS ORDERED: IOHEXOL 350 MG/ML 10 ML VIAL (for RAD DIAG) IV ONE (11:05)
--- NOTE | 2016-11-11 11:10 | RADRPT ---
EXAM DATE/TIME: 11/11/2016 10:15 [facility] COMPARISON: MRCP W/O CONTRAST, September 07, 2016, 18:21. US ABDOMEN - GALLBLADDER, September 05, 2016, 11:50. INDICATIONS : Right upper quadrant pain. MEDICAL HISTORY : Hypercholesterolemia. Hypertension. Renal calculi. CAD. SURGICAL HISTORY : Cardiac surgery. Left knee surgery. ENCOUNTER: Subsequent ACUITY: 1 day PAIN SCORE: 3/10 LOCATION: Right upper quadrant MEASUREMENTS: LIVER: 14.4 cm length COMMON DUCT: 3 mm RIGHT KIDNEY: 12.3 x 6.8 x 6.1 cm FINDINGS: LIVER: Normal echotexture without focal lesion or ductal dilatation. COMMON DUCT: No intraluminal mass or stone visualized. GALLBLADDER: Limited exam of gallbladder. However no definite stones are seen. The gallbladder wall is not thicken ed. The gallbladder on the recent MRCP was unremarkable. PANCREAS: The visualized portions are within normal limits. RIGHT KIDNEY: There appears to be some hydronephrosis of the right collecting system. This is a new finding compare d to the prior studies. There continue to be benign multiple renal cysts. CONCLUSION: 1. There appears to be interval development of some right sided hydronephrosis compared to the prior studies. If clinically indicated, a CT scan of the abdomen and pelvis could be performed for further evaluation. 2. There continues to be several benign-appearing right renal cysts. 3. Otherwise unremarkable and stable study. Teodoro Tamayo MD on November 11, 2016 at 11:02 Board Certified Radiologist. This report was verified electronically.
--- NOTE | 2016-11-11 11:16 | RADRPT ---
EXAM DATE/TIME: 11/11/2016 10:57 [facility] COMPARISON: No previous studies available for comparison. INDICATIONS : Heart palpation,shortness of breath. IV CONTRAST: 68 cc Omnipaque 350 (iohexol) IV RADIATION DOSE: 23.28 CTDIvol (mGy) MEDICAL HISTORY : Cardiovascular disease. Hypertension. SURGICAL HISTORY : None. ENCOUNTER: Initial ACUITY: 1 day PAIN SCALE: 0/10 LOCATION: chest TECHNIQUE: Volumetric scanning of the chest was performed using a pulmonary embolism protocol MIP images were re constructed. Using automated exposure control and adjustment of the mA and/or kV according to patien t size, radiation dose was kept as low as reasonably achievable to obtain optimal diagnostic quality images. DICOM format image data is available electronically for review and comparison. Follow-up recommendations for incidentally detected pulmonary nodules are based at a minimum on nodul e size and patient risk factors according to Fleischner Society Guidelines. FINDINGS: PULMONARY ARTERIES: No filling defects are seen in the pulmonary arteries through the segmental level. LUNGS: There is increased interstitial markings bilaterally. There are small effusions, right greater than l eft. These findings suggest pulmonary edema. PLEURAE: Small bilateral pleural effusions, right greater than left. MEDIASTINUM: There is good visualization of the great vessels of the middle mediastinum. No evidence of mediastin al or hilar adenopathy/mass. Moderate diffuse cardiomegaly. Evidence of previous cardiothoracic surge ry. MUSCULOSKELETAL: Within normal limits for patient age. Degenerative type changes. MISCELLANEOUS: The visualized upper abdominal organs demonstrate no acute abnormality. 3.5 cm right renal cyst upper pole. CONCLUSION: 1. No evidence of pulmonary embolism. 2. Increased interstitial markings bilaterally with bilateral effusions characteristic of congestive heart failure. 3. Moderate diffuse cardiomegaly. 4. 3.5 cm right renal cyst. Teodoro Tamayo MD on November 11, 2016 at 11:11 Board Certified Radiologist. This report was verified electronically.
[2016-11-11 11:38] VITALS: BP 172/86
[2016-11-11] MEDS ORDERED: MACR100C2 PO (11:54)
--- NOTE | 2016-11-12 15:10 | EKG ---
Date Performed: 11/11/2016 Time Performed: 08:23:54 PTAGE: 76 years EKG: ATRIAL FIBRILLATION Compared to previous tracing, R wave improved in V2, otherwise no signi ficant change ABNORMAL RHYTHM ECG PREVIOUS TRACING : 11/11/2016 08.22 DOCTOR: Ajit Gomez Interpretating Date/Time 11/12/2016 15:09:03
== END 2016-11-11 12:34 | disposition home or self-care (01) ==
LOC: NEPC 08:02
DX: I50.9 Heart failure, unspecified (principal); N30.01 Acute cystitis with hematuria; B96.1 Klebsiella pneumoniae [K. pneumoniae] as the cause of diseases classified elsewhere; R74.0 Nonspecific elevation of levels of transaminase and lactic acid dehydrogenase [LDH]; N13.30 Unspecified hydronephrosis; N28.1 Cyst of kidney, acquired
CPT/HCPCS: 71010; 71275; 76705; 80053; 81001; 82550; 82552; 83690; 83735; 83880; 84484; 85025; 85610; 85730; 87077; 87086; 87186; 93005; 96365; 96375; 99285; J0696; J1940; Q9967

== ENCOUNTER 2016-11-13 08:41 | Emergency (ER) | payer OTHER, MEDICAID ==
[~2016-11-13] VITALS: Ht 177.8 cm; Wt 78.0 kg
[~2016-11-13 08:41] MED LIST changes: -CIPR-9 PO; -K-TA10TA PO; +MACR100C2 PO; -METR-1 PO; -PERC5TAB12 PO
[2016-11-13 08:43] VITALS: BP 156/76; PULSE 96; RESP 24; TEMP 97.5; O2SAT 97
[2016-11-13 09:13] VITALS: BP 128/78; PULSE 88; RESP 16; O2SAT 95
[2016-11-13] MEDS ORDERED: LIDOCAINE HCL 1% 50 ML VIAL ONE (09:17)
[2016-11-13] MEDS ORDERED: LIDOCAINE HCL 1% 50 ML VIAL INFIL ONE (09:30)
--- NOTE | 2016-11-13 09:55 | RADRPT ---
EXAM DATE/TIME: 11/13/2016 09:34 [facility] COMPARISON: No previous studies available for comparison. INDICATIONS : Pain. MEDICAL HISTORY : Unobtainable. SURGICAL HISTORY : Unobtainable. ENCOUNTER: Initial ACUITY: 1 day PAIN SCORE: Non-responsive. LOCATION: Left Knee FINDINGS: AP, lateral and oblique views of the left knee were obtained and demonstrate mild joint space loss, s clerosis and hypertrophic changes in the medial compartment. There are degenerative changes in the pa tellofemoral joint with spurring as well. There is evidence of a joint effusion with abnormal fullnes s in the suprapatellar bursa. There is diffuse osteopenia with no acute fracture or malalignment. The re is an old fracture deformity of the proximal fibula. CONCLUSION: 1. Moderate to large joint effusion. 2. 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 Davon Garcia MD on November 13, 2016 at 9:52 Board Certified Radiologist. This report was verified electronically.
[2016-11-13] MEDS ORDERED: ACETAMINOPHEN/HYDROcodone 325 MG/5 MG TAB PO ONE (10:00)
[2016-11-13 10:20] LABS: SYNOVIAL FLUID CRYSTALS POS - URIC ACID
--- NOTE | 2016-11-13 10:55 | PD ---
HPI Chief Complaint: Musculoskeletal Complaint Time Seen by Provider: 09:16 Travel History International Travel<30 days: No Contact w/Intl Traveler<30days: No Traveled to known affect area: No History of Present Illness HPI History was obtained via Chinese via agricultural extension specialist. This is a 76-year-old male who presents to the emergency department with left knee pain that's been going on for 1 week, constant, moderate severity, making it difficult to walk associated with swelling. He denies any fevers or chills and denies any injury. He is unable to tell me if he has a history of arthritis or gout. PFSH Past Medical History Hx Anticoagulant Therapy: No Atrial Fibrillation: Yes Blood Disorders: No Anxiety: No Depression: Yes Heart Rhythm Problems: No Cancer: No Cardiovascular Problems: Yes High Cholesterol: Yes Chemotherapy: No Chest Pain: No Congestive Heart Failure: No Cerebrovascular Accident: No Coronary Artery Disease: Yes Diabetes: No Diminished Hearing: No Endocrine: No Gastrointestinal Disorders: Yes (GALLBLADDER STONES) Glaucoma: Yes (jacobo) Genitourinary: Yes Hepatitis: No Hiatal Hernia: No Hypertension: Yes Immune Disorder: No Implanted Vascular Access Dvce: No Kidney Stones: Yes Medical other: Yes (KIDNEY STONES) Musculoskeletal: Yes (L KNEE SURGERY) Neurologic: No Psychiatric: No Reproductive: No Respiratory: No Myocardial Infarction: No Thyroid Disease: No Past Surgical History Abdominal Surgery: Yes (GALLSTONES) AICD: No Body Medical Devices: NONE PER PT Cardiac Surgery: Yes Coronary Artery Bypass Graft: Yes Genitourinary Surgery: Yes (02/15- SURGERY FOR KIDNEY STONE REMOVAL/URETHERAL STENT PLACEMENT) Pacemaker: No Other Surgery: Yes Social History Alcohol Use: No Tobacco Use: No Substance Use: No Allergies-Medications (Allergen,Severity, Reaction): Coded Allergies: No Known Allergies (Verified , 11/13/16) Reported Meds & Prescriptions Reported Meds & Active Scripts Active Macrobid (Nitrofurantoin Monoh/Nitrofur Macro) 100 Mg Cap 100 Mg PO BID 10 Days Furosemide 20 Mg Tab 20 Mg PO DAILY Norvasc (Amlodipine Besylate) 5 Mg Tab 7.5 Mg PO DAILY Metoprolol Tartrate 25 Mg Tab 12.5 Mg PO Q12HR Flomax (Tamsulosin HCl) 0.4 Mg Cap 0.4 Mg PO DAILY Cozaar (Losartan Potassium) 25 Mg Tab 25 Mg PO DAILY Reported Atorvastatin (Atorvastatin Calcium) 40 Mg Tab 40 Mg PO HS Xarelto (Rivaroxaban) 20 Mg Tab 20 Mg PO DAILY Review of Systems Except as stated in HPI: all other systems reviewed are Neg Physical Exam Narrative GENERAL:Well appearing, no acute distress SKIN: Focused skin assessment warm and dry. HEAD: Atraumatic. Normocephalic. EYES: Pupils equal and round. No injection or drainage. ENT: Moist mucous membranes NECK: Trachea midline. CARDIOVASCULAR: Regular rate and rhythm. 3/6 systolic murmur heard over the right upper sternal border. RESPIRATORY: Clear to auscultation. Breath sounds equal bilaterally. GASTROINTESTINAL: Abdomen soft, non-tender, nondistended. MUSCULOSKELETAL: Large joint effusion involving the left knee, pain with passive range of motion of the left knee, warmth compared to the right knee. NEUROLOGICAL: Awake and alert. No obvious cranial nerve deficits. Moving all extremities. PSYCHIATRIC: Appropriate mood and affect; insight and judgment normal. Data Data Last Documented VS Vital Signs Date Time Temp Pulse Resp B/P Pulse Ox O2 Delivery O2 Flow Rate FiO2 11/13/16 11:27 16 11/13/16 09:13 88 128/78 95 Room Air 11/13/16 08:43 97.5 Orders Synovial Fluid Crystals (11/13/16 09:16) Synovial Fluid Glucose (11/13/16 09:16) Synovial Fluid Total Protein (11/13/16 09:16) Synovial Fl Cell Count + Diff (11/13/16 09:16) Lidocaine 1% Inj (50 Ml) (Xylocaine 1% I (11/13/16 09:30) Lidocaine 1% Inj (50 Ml) (Xylocaine 1% I (11/13/16 09:17) Knee, Complete (4vws) (11/13/16 ) Acetamin-Hydrocod 325-5 Mg (Trenary 5-325 (11/13/16 10:00) Labs Laboratory Tests Test 11/13/16 09:45 Synovial Fluid Color YELLOW Synovial Fluid Appearance MODERATE Synovial Fluid WBC 41440 /MM3 Synovial Fluid RBC 140 /MM3 Synovial Fluid Neutrophils 95 % Synovial Fluid Lymphocytes 1 % Synovial Fluid Monocytes 4 % Synovial Fluid Crystals POS - URIC ACID MDM Medical Decision Making Medical Screen Exam Complete: Yes Emergency Medical Condition: Yes Interpretation(s) Afebrile 13,000 white blood cells 95% neutrophils Positive for uric acid crystals Differential Diagnosis Gout, pseudogout, septic arthritis, osteoarthritis Narrative Course This is a 76-year-old male who has a history of gout diagnosed here in the emergency department the past 2 presents with left knee swelling. He has painful range of motion of the left knee. He has no fever. History is somewhat limited as despite video agricultural extension specialist he doesn't answer questions appropriately. Arthrocentesis was performed which demonstrates 13,000 white blood cells consistent with an inflammatory arthritis. He has uric acid crystals which suggests gout. Patient will be treated with colchicine and pain control. Procedures Procedure Narrative Arthrocentesis of the left knee was performed. Area was cleansed with Betadine. 3 cc of 1% lidocaine were injected subcutaneously for anesthesia. An 18-gauge needle was used to aspirate 30 cc of cloudy synovial fluid. Patient tolerated the procedure well with minimal bleeding. Diagnosis Primary Impression: Gout attack Qualified Code: M10.062 - Acute idiopathic gout of left knee Patient Instructions: General Instructions Additional Instructions: If you develop fever, chills, or worsening pain return to the emergency department. Med/Other Pt SpecificInfo: Prescription(s) given Scripts Hydrocodone-Acetaminophen (Lortab)5-325 Mg Tab1 Tab PO Q6H PRN (PAIN) #10 TAB Ref 0 Prov:Emily Francis MD 11/13/16 Colchicine 0.6 Mg Cap0.6 Mg PO BID #14 CAP Ref 0 Prov:Emily Francis MD 11/13/16 Disposition: 01 DISCHARGE HOME Condition: Stable Emily Francis MD Nov 13, 2016 10:55
[2016-11-13 11:27] VITALS: RESP 16
[2016-11-13 11:29] LABS: WBC, SYNOVIAL FLUID 13500 /MM3 (0-200)
[2016-11-13] MEDS ORDERED: HYDR-3533 PO (11:34)
[2016-11-13] MEDS ORDERED: COLC1CAP3 PO (11:34)
[2016-11-17 19:52] LABS: TOTAL PROTEIN, SYNOVIAL FLUID 3.4 g/dL (1.0-3.0)
== END 2016-11-13 12:02 | disposition home or self-care (01) ==
LOC: NEPD 08:41
DX: M10.062 Idiopathic gout, left knee (principal); I48.91 Unspecified atrial fibrillation; I25.10 Atherosclerotic heart disease of native coronary artery without angina pectoris; I10 Essential (primary) hypertension; H40.9 Unspecified glaucoma; F32.9 Major depressive disorder, single episode, unspecified
CPT/HCPCS: 20610; 73564; 82945; 84157; 89051; 89060

== ENCOUNTER 2016-12-11 06:46 | Emergency (ER) | payer OTHER, MEDICAID ==
[~2016-12-11] VITALS: Ht 177.8 cm; Wt 78.0 kg
[~2016-12-11 06:46] MED LIST changes: +COLC1CAP3 PO; +HYDR-3533 PO
[2016-12-11 06:52] VITALS: BP 157/89; PULSE 80; RESP 16; TEMP 97.6; O2SAT 99
[2016-12-11 07:05] VITALS: BP 133/94; PULSE 68; RESP 17; TEMP 97.8; O2SAT 98
[2016-12-11 08:03] LABS: AUTOMATED NEUTROPHIL # 5.4 TH/MM3 (1.8-7.7); BASOPHIL % 0.5 % (0.0-2.0); EOSINOPHIL # 0.4 TH/MM3 (0-0.4); EOSINOPHIL % 5.2 % (0.0-4.0); HEMATOCRIT 37.2 % (39.0-51.0); HEMO FLAGS DIFF FINAL; LYMPH % 14.6 % (9.0-44.0); LYMPHOCYTE # 1.1 TH/MM3 (1.0-4.8); MEAN CORPUSCULAR HEMOGLOBIN 26.1 PG (27.0-34.0); MEAN CORPUSCULAR HGB CONC 32.2 % (32.0-36.0); MONO % 10.3 % (0.0-8.0); NEUT % 69.4 % (16.0-70.0); PLATELET COUNT 183 TH/MM3 (150-450); RED BLOOD COUNT 4.59 MIL/MM3 (4.50-5.90); RED CELL DISTRIBUTION WIDTH 18.2 % (11.6-17.2); WHITE BLOOD COUNT 7.8 TH/MM3 (4.0-11.0)
[2016-12-11 08:13] LABS: BLOOD, URINE SMALL (NEG); GLUCOSE,URINE NEG (NEG); KETONE, URINE NEG (NEG); MUCUS URINE FEW /lpf (OCC); NITRITE,URINE NEG (NEG); PH, URINE 6.5 (5.0-8.5); SQUAMOUS EPITHELIAL CELL URINE <1 /hpf (0-5); URINE COLOR LIGHT-YELLOW (YELLW/STRAW)
[2016-12-11 08:14] LABS: COMMENT (UR) CULT NOT INDICATED; CULTURE IF INDICATED CULT NOT INDICATED
[2016-12-11 08:15] LABS: INTERNATIONAL NORMALIZED RATIO 1.2 RATIO; PROTHROMBIN TIME - PATIENT 13.8 SEC (9.8-11.6)
[2016-12-11 08:24] LABS: ALT (GPT) 16 U/L (12-78); ANION GAP 8 MEQ/L (5-15); AST (GOT) 17 U/L (15-37); BLOOD UREA NITROGEN 19 MG/DL (7-18); CHLORIDE 105 MEQ/L (98-107); GLOMERULAR FILTRATION RATE 68 ML/MIN (>89); POTASSIUM 3.8 MEQ/L (3.5-5.1); SODIUM (NA) 139 MEQ/L (136-145)
[2016-12-11 08:27] LABS: ALKALINE PHOSPHATASE 156 U/L (45-117); TOTAL BILIRUBIN ADULT 0.6 MG/DL (0.2-1.0)
[2016-12-11 09:08] VITALS: BP 143/86; PULSE 76; RESP 16; TEMP 97.9; O2SAT 98
[2016-12-11] MEDS ORDERED: HYDR-3533 PO (09:39)
--- NOTE | 2016-12-11 09:40 | PD ---
HPI Chief Complaint: Complaint Time Seen by Provider: 07:39 Travel History International Travel<30 days: No Contact w/Intl Traveler<30days: No Traveled to known affect area: No History of Present Illness HPI Patient is a 76-year-old male who comes in because he wants his bladder stone removed. He says that he just started to urinate blood. He says that his doctor told him to come into the emergency department. He denies pain. He denies fever or chills. He denies nausea or vomiting. He does say that he does not have any more pain pills at home. PFSH Past Medical History Hx Anticoagulant Therapy: Yes (XARELTO) Atrial Fibrillation: Yes Blood Disorders: No Anxiety: No Depression: Yes Heart Rhythm Problems: No Cancer: No Cardiovascular Problems: Yes High Cholesterol: Yes Chemotherapy: No Chest Pain: No Congestive Heart Failure: No Cerebrovascular Accident: No Coronary Artery Disease: Yes Diabetes: No Diminished Hearing: No Endocrine: No Gastrointestinal Disorders: Yes (GALLBLADDER STONES) Glaucoma: Yes (jacobo) Genitourinary: Yes Hepatitis: No Hiatal Hernia: No Hypertension: Yes Immune Disorder: No Implanted Vascular Access Dvce: No Kidney Stones: Yes Medical other: Yes (KIDNEY STONES) Musculoskeletal: Yes (L KNEE SURGERY) Neurologic: No Psychiatric: No Reproductive: No Respiratory: No Myocardial Infarction: No Thyroid Disease: No Tetanus Vaccination: < 5 Years Influenza Vaccination: Yes Past Surgical History Abdominal Surgery: Yes (GALLSTONES) AICD: No Body Medical Devices: NONE PER PT Cardiac Surgery: Yes Coronary Artery Bypass Graft: Yes Genitourinary Surgery: Yes (02/15- SURGERY FOR KIDNEY STONE REMOVAL/URETHERAL STENT PLACEMENT) Pacemaker: No Other Surgery: Yes Social History Alcohol Use: No (PT DENIES ) Tobacco Use: No (QUIT 38 YEARS AGO) Substance Use: No (PT DENIES) Allergies-Medications (Allergen,Severity, Reaction): Coded Allergies: No Known Allergies (Verified , 12/11/16) Reported Meds & Prescriptions Reported Meds & Active Scripts Active Colchicine 0.6 Mg Cap 0.6 Mg PO BID Furosemide 20 Mg Tab 20 Mg PO DAILY Norvasc (Amlodipine Besylate) 5 Mg Tab 7.5 Mg PO DAILY Metoprolol Tartrate 25 Mg Tab 12.5 Mg PO Q12HR Flomax (Tamsulosin HCl) 0.4 Mg Cap 0.4 Mg PO DAILY Cozaar (Losartan Potassium) 25 Mg Tab 25 Mg PO DAILY Reported Atorvastatin (Atorvastatin Calcium) 40 Mg Tab 40 Mg PO HS Xarelto (Rivaroxaban) 20 Mg Tab 20 Mg PO DAILY Review of Systems Except as stated in HPI: all other systems reviewed are Neg General / Constitutional: No: Fever, Chills HENT: No: Headaches, Lightheadedness Cardiovascular: No: Chest Pain or Discomfort Respiratory: No: Shortness of Breath Gastrointestinal: No: Nausea, Vomiting, Abdominal Pain Genitourinary: Positive: Hematuria Skin: No Rash, No Change in Pigmentation Neurologic: No: Weakness, Dizziness Physical Exam Narrative GENERAL: Awake and alert, in no acute distress. SKIN: Focused skin assessment warm/dry. HEAD: Atraumatic. Normocephalic. EYES: Pupils equal and round. No scleral icterus. ENT: Mucous membranes pink and moist. NECK: Trachea midline. No JVD. CARDIOVASCULAR: Regular rate and rhythm. No murmur appreciated. RESPIRATORY: No accessory muscle use. Clear to auscultation. Breath sounds equal bilaterally. GASTROINTESTINAL: Abdomen soft, non-tender, nondistended. No CVA tenderness. MUSCULOSKELETAL: No obvious deformities. No clubbing. No cyanosis. No edema. NEUROLOGICAL: Awake and alert. No obvious cranial nerve deficits. Motor grossly within normal limits. Normal speech. PSYCHIATRIC: Appropriate mood and affect; insight and judgment normal. Data Data Last Documented VS Vital Signs Date Time Temp Pulse Resp B/P (MAP) Pulse Ox O2 Delivery O2 Flow Rate FiO2 12/11/16 09:08 97.9 76 16 143/86 (105) 98 Room Air Orders Orders Iv Access Insert/Monitor (12/11/16 07:49) Complete Blood Count With Diff (12/11/16 07:49) Comprehensive Metabolic Panel (12/11/16 07:49) Act Partial Throm Time (Ptt) (12/11/16 07:49) Prothrombin Time / Inr (Pt) (12/11/16 07:49) Urinalysis - C+S If Indicated (12/11/16 07:49) Labs Laboratory Tests Test 12/11/16 07:50 White Blood Count 7.8 TH/MM3 Red Blood Count 4.59 MIL/MM3 Hemoglobin 12.0 GM/DL Hematocrit 37.2 % Mean Corpuscular Volume 81.0 FL Mean Corpuscular Hemoglobin 26.1 PG Mean Corpuscular Hemoglobin Concent 32.2 % Red Cell Distribution Width 18.2 % Platelet Count 183 TH/MM3 Mean Platelet Volume 8.8 FL Neutrophils (%) (Auto) 69.4 % Lymphocytes (%) (Auto) 14.6 % Monocytes (%) (Auto) 10.3 % Eosinophils (%) (Auto) 5.2 % Basophils (%) (Auto) 0.5 % Neutrophils # (Auto) 5.4 TH/MM3 Lymphocytes # (Auto) 1.1 TH/MM3 Monocytes # (Auto) 0.8 TH/MM3 Eosinophils # (Auto) 0.4 TH/MM3 Basophils # (Auto) 0.0 TH/MM3 CBC Comment DIFF FINAL Differential Comment Prothrombin Time 13.8 SEC Prothromb Time International Ratio 1.2 RATIO Activated Partial Thromboplast Time 33.0 SEC Urine Color LIGHT-YELLOW Urine Turbidity CLEAR Urine pH 6.5 Urine Specific [place] 1.014 Urine Protein NEG mg/dL Urine Glucose (UA) NEG mg/dL Urine Ketones NEG mg/dL Urine Occult Blood SMALL Urine Nitrite NEG Urine Bilirubin NEG Urine Urobilinogen LESS THAN 2.0 MG/DL Urine Leukocyte Esterase MOD Urine RBC 25 /hpf Urine WBC 7 /hpf Urine Squamous Epithelial Cells <1 /hpf Urine Mucus FEW /lpf Microscopic Urinalysis Comment CULT NOT INDICATED Blood Urea Nitrogen 19 MG/DL Creatinine 1.06 MG/DL Random Glucose 77 MG/DL Total Protein 7.4 GM/DL Albumin 3.6 GM/DL Calcium Level 8.5 MG/DL Alkaline Phosphatase 156 U/L Aspartate Amino Transf (AST/SGOT) 17 U/L Alanine Aminotransferase (ALT/SGPT) 16 U/L Total Bilirubin 0.6 MG/DL Sodium Level 139 MEQ/L Potassium Level 3.8 MEQ/L Chloride Level 105 MEQ/L Carbon Dioxide Level 26.0 MEQ/L Anion Gap 8 MEQ/L Estimat Glomerular Filtration Rate 68 ML/MIN [facility] Medical Decision Making Medical Screen Exam Complete: Yes Emergency Medical Condition: Yes Medical Record Reviewed: Yes Differential Diagnosis UTI versus hematuria versus renal stone Narrative Course Patient is a 76-year-old male who comes in because he wants his bladder stone removed. Exam shows no acute abnormalities. Patient is able to urinate. Labs show no acute abnormalities. He says he does not need any pain medicine at this time. I explained to him that he needs to see urology for any procedure. He does have an appointment scheduled for 10 days from now. He is asking for prescription for pain medicine. He'll be discharged home. Advised follow-up at his scheduled appointments. Advised to return to the ED as needed for any worsening symptoms. Diagnosis Primary Impression: Hematuria Qualified Codes: R31.9 - Hematuria, unspecified Patient Instructions: General Instructions, Hematuria (ED) Additional Instructions: Follow-up with urology. Take pain medicine as needed. Return to the ED as needed for any worsening symptoms. Scripts Hydrocodone-Acetaminophen (Lortab) 5-325 Mg Tab 1 TAB PO Q6H Y for PAIN, #7 TAB 0 Refills Prov: Aline Kirk MD 12/11/16 Disposition: DISCHARGE HOME Condition: Stable Aline Kirk MD Dec 11, 2016 09:39
[2016-12-11 09:45] VITALS: BP 120/78; TEMP 97.8
== END 2016-12-11 09:45 | disposition home or self-care (01) ==
LOC: NEPC 06:46
DX: R31.9 Hematuria, unspecified (principal); I48.91 Unspecified atrial fibrillation; I25.10 Atherosclerotic heart disease of native coronary artery without angina pectoris; I10 Essential (primary) hypertension; F32.9 Major depressive disorder, single episode, unspecified; E78.00 Pure hypercholesterolemia, unspecified; Z79.899 Other long term (current) drug therapy
CPT/HCPCS: 80053; 81001; 85025; 85610; 85730; 99283

== ENCOUNTER 2017-03-30 10:16 | Emergency (ER) | payer MEDICAID, OTHER ==
[~2017-03-30] VITALS: Ht 177.8 cm; Wt 74.0 kg
[~2017-03-30 10:16] MED LIST changes: -MACR100C2 PO
[2017-03-30 10:20] VITALS: BP 140/88; PULSE 64; RESP 18; TEMP 97.7; O2SAT 96
--- NOTE | 2017-03-30 10:56 | PD ---
HPI Chief Complaint: Pain: Acute or Chronic Time Seen by Provider: 10:41 Travel History International Travel<30 days: No Contact w/Intl Traveler<30days: No Traveled to known affect area: No History of Present Illness HPI Patient comes in complaining of nonproductive cough and congestion ongoing for 3 -4 days. Patient denies doing anything for this. Reports cough is worse at night. Denies anything making it better. Denies any pain with this. Denies chest pain, shortness of breath, fevers, nausea, vomiting, diarrhea, abdominal pain, loss change in bowel or bladder, headaches, numbness or tingling anywhere. Patient reports that he has had pneumonia in the past is concerned he might be developing pneumonia again. Patient also complaining of chronic left hip pain that he was told he needs surgery. Patient denies any new injury. Pain radiates down his left lower extremity. Denies anything making it better or worse. Denies any change in the pain. Patient was offered hospital interpreting service of [place], but is comfortable with manager printing in the room. PFSH Past Medical History Hx Anticoagulant Therapy: Yes (XARELTO) Atrial Fibrillation: Yes Blood Disorders: No Anxiety: No Depression: Yes Heart Rhythm Problems: No Cancer: No Cardiovascular Problems: Yes High Cholesterol: Yes Chemotherapy: No Chest Pain: No Congestive Heart Failure: No Cerebrovascular Accident: No Coronary Artery Disease: Yes Diabetes: No Diminished Hearing: No Endocrine: No Gastrointestinal Disorders: Yes (GALLBLADDER STONES) Glaucoma: Yes (jacobo) Genitourinary: Yes Hepatitis: No Hiatal Hernia: No Hypertension: Yes Immune Disorder: No Implanted Vascular Access Dvce: No Kidney Stones: Yes Musculoskeletal: Yes (L KNEE SURGERY) Neurologic: No Psychiatric: No Reproductive: No Respiratory: No Myocardial Infarction: No Thyroid Disease: No Past Surgical History Abdominal Surgery: Yes (GALLSTONES) AICD: No Body Medical Devices: NONE PER PT Cardiac Surgery: Yes Coronary Artery Bypass Graft: Yes Genitourinary Surgery: Yes (02/15- SURGERY FOR KIDNEY STONE REMOVAL/URETHERAL STENT PLACEMENT) Pacemaker: No Other Surgery: Yes Social History Alcohol Use: No (PT DENIES ) Tobacco Use: No (QUIT 38 YEARS AGO) Substance Use: No (PT DENIES) Allergies-Medications (Allergen,Severity, Reaction): Coded Allergies: No Known Allergies (Verified , 12/11/16) Reported Meds & Prescriptions Reported Meds & Active Scripts Active Colchicine 0.6 Mg Cap 0.6 Mg PO BID Furosemide 20 Mg Tab 20 Mg PO DAILY Norvasc (Amlodipine Besylate) 5 Mg Tab 7.5 Mg PO DAILY Metoprolol Tartrate 25 Mg Tab 12.5 Mg PO Q12HR Flomax (Tamsulosin HCl) 0.4 Mg Cap 0.4 Mg PO DAILY Cozaar (Losartan Potassium) 25 Mg Tab 25 Mg PO DAILY Reported Atorvastatin (Atorvastatin Calcium) 40 Mg Tab 40 Mg PO HS Xarelto (Rivaroxaban) 20 Mg Tab 20 Mg PO DAILY Review of Systems Except as stated in HPI: all other systems reviewed are Neg Physical Exam Narrative GENERAL: Well-developed, well nourished, in no acute distress, and non-ill appearing. SKIN: Focused skin assessment warm and dry. HEAD: Atraumatic. Normocephalic. EYES: Pupils equal and round. EOMI. No scleral icterus. No injection or drainage. ENT: No nasal bleeding or discharge. Mucous membranes pink and moist. Posterior pharynx nonerythematous without exudate. Uvula is midline. No tenderness to facial sinuses to palpation. NECK: Trachea midline. No cervical lymphadenopathy. Supple. No nuclear rigidity. CARDIOVASCULAR: Regular rate and rhythm. No murmur appreciated. RESPIRATORY: No accessory muscle use. No respiratory distress. Clear to auscultation. Breath sounds equal bilaterally. No coughing on exam. Patient speaking in full sentences without difficulty. MUSCULOSKELETAL: No obvious deformities. No clubbing. No cyanosis. No edema. Full range of motion. NEUROLOGICAL: Awake and alert. No obvious cranial nerve deficits. Motor grossly within normal limits. Normal speech. PSYCHIATRIC: Appropriate mood and affect; insight and judgment normal. Data Data Last Documented VS Vital Signs Date Time Temp Pulse Resp B/P (MAP) Pulse Ox O2 Delivery O2 Flow Rate FiO2 03/30/17 10:20 97.7 64 18 140/88 (105) 96 Orders Orders Chest, Single Ap (03/30/17 ) Ed Discharge Order (03/30/17 11:54) MDM Medical Decision Making Medical Screen Exam Complete: Yes Emergency Medical Condition: Yes Interpretation(s) Last Impressions Chest X-Ray 03/30/17 0000 Signed Impressions: Service Date/Time: Thursday, March 30, 2017 11:09 - CONCLUSION: No acute disease. Cardiomegaly Teto Govea MD Differential Diagnosis Pneumonia, bronchitis, URI, viral syndrome, allergic rhinitis Narrative Course Patients symptom complex of cough and congestion is consistent with viral URI. The patient is non-ill appearing and is in no respiratory distress and comfortable. The patient moves air well and oxygen saturations are normal. There is no clinical evidence to suggest pneumonia at this time. Plan of care and management were discussed with the patient who agreed with plan. The patient was instructed to follow up with their physician and instructed to return if worsens, progressively worsening shortness of breath or difficulty breathing, persistent fever, chest pains or discomfort, inability to keep medication or fluids down with or without vomiting, or as needed. Patient in no obvious distress upon re-evaluation. All pertinent Radiology result(s) discussed with patient. Any questions/concerns in reference to patient diagnosis/condition discussed and clarified prior to patient's discharge. Reinforced sheer importance of close follow up with patient's primary physician or primary care clinic. Instructed patient to return to ED immediately, if symptoms return/worsen. Patient showed understanding of above instructions. Further instructions and recommendations were detailed in discharge paperwork. Patient ambulated without difficulty out of ED at discharge. Diagnosis Primary Impression: Upper respiratory infection with cough and congestion Patient Instructions: General Instructions, Upper Respiratory Infection (ED) Additional Instructions: Follow-up with your primary care physician in 2-5 days for reevaluation. Return to the emergency department if symptoms get worse. Disposition: 01 DISCHARGE HOME Condition: Stable Sandip Cisneros Mar 30, 2017 10:56
--- NOTE | 2017-03-30 11:41 | RADRPT ---
EXAM DATE/TIME: 03/30/2017 11:09 [facility] COMPARISON: CHEST SINGLE AP, November 11, 2016, 8:19. INDICATIONS : Cough. MEDICAL HISTORY : Hypertension. Hypercholesterolemia. Cornonary artery disease. Atrial fibrillation. SURGICAL HISTORY : CABG. Cholecystectomy. ENCOUNTER: Initial ACUITY: 3 weeks PAIN SCORE: 2/10 LOCATION: Bilateral chest FINDINGS: Heart is mildly enlarged. Lungs remain free of significant congestion or acute air space disease. Median sternotomy wires from prior open heart surgery are noted. CONCLUSION: No acute disease. Cardiomegaly Teto Govea MD on March 30, 2017 at 11:39 Board Certified Radiologist. This report was verified electronically.
== END 2017-03-30 12:19 | disposition home or self-care (01) ==
LOC: NEPK 10:16
DX: J06.9 Acute upper respiratory infection, unspecified (principal); G89.29 Other chronic pain; M25.552 Pain in left hip; E78.00 Pure hypercholesterolemia, unspecified; I48.91 Unspecified atrial fibrillation; I25.10 Atherosclerotic heart disease of native coronary artery without angina pectoris; I10 Essential (primary) hypertension; Z79.01 Long term (current) use of anticoagulants; Z87.891 Personal history of nicotine dependence
CPT/HCPCS: 71010; 99283

== ENCOUNTER 2017-07-14 13:19 | Emergency (ER) | payer OTHER ==
[~2017-07-14 13:19] MED LIST changes: -HYDR-3533 PO
[2017-07-14 14:01] VITALS: BP 124/79; PULSE 80; RESP 22; TEMP 98.1; O2SAT 96
--- NOTE | 2017-07-14 15:13 | RADRPT ---
EXAM DATE/TIME: 07/14/2017 14:55 [facility] COMPARISON: CHEST PA & LAT, June 09, 2016, 17:09. INDICATIONS : Chest pain MEDICAL HISTORY : Hypertension. Hypercholesterolemia. Cornonary artery disease. Atrial fibrillation. SURGICAL HISTORY : CABG. Cholecystectomy ENCOUNTER: Initial ACUITY: 1 day PAIN SCORE: 0/10 LOCATION: chest FINDINGS: PA and lateral views of the chest demonstrate the lungs to be symmetrically aerated without evidence of mass, infiltrate or effusion. Minimal atelectatic changes above the right hemidiaphragm. Accounti ng for low lung lines, the heart size is borderline prominent but well compensated. Findings of prior CABG intact median sternotomy wires. Degenerative spurring of the dorsal spine. Osseous structures a re otherwise intact. CONCLUSION: 1. Minimal atelectatic changes above the right hemidiaphragm. Lungs are otherwise clear. 2. Borderline prominent but well compensated heart. Abhilash Palmer MD on July 14, 2017 at 15:09 Board Certified Radiologist. This report was verified electronically.
[2017-07-14 16:39] LABS: AUTOMATED NEUTROPHIL # 5.2 TH/MM3 (1.8-7.7); BASOPHIL % 0.5 % (0.0-2.0); EOSINOPHIL # 0.3 TH/MM3 (0-0.4); EOSINOPHIL % 3.4 % (0.0-4.0); HEMATOCRIT 38.5 % (39.0-51.0); LYMPH % 16.4 % (9.0-44.0); LYMPHOCYTE # 1.2 TH/MM3 (1.0-4.8); MEAN CELL VOLUME 86.2 FL (80.0-100.0); MEAN CORPUSCULAR HGB CONC 33.7 % (32.0-36.0); MEAN PLATELET VOLUME 7.4 FL (7.0-11.0); MONO % 11.1 % (0.0-8.0); MONOCYTE # 0.8 TH/MM3 (0-0.9); NEUT % 68.6 % (16.0-70.0); PLATELET COUNT 265 TH/MM3 (150-450); RED BLOOD COUNT 4.47 MIL/MM3 (4.50-5.90); RED CELL DISTRIBUTION WIDTH 18.5 % (11.6-17.2); WHITE BLOOD COUNT 7.6 TH/MM3 (4.0-11.0)
[2017-07-14 16:46] LABS: INTERNATIONAL NORMALIZED RATIO 1.2 RATIO
[2017-07-14 17:11] LABS: BICARBONATE 26.2 MEQ/L (21.0-32.0); BLOOD UREA NITROGEN 18 MG/DL (7-18); CALCIUM 9.1 MG/DL (8.5-10.1); CHLORIDE 106 MEQ/L (98-107); CREATININE 1.03 MG/DL (0.60-1.30); GLOMERULAR FILTRATION RATE 70 ML/MIN (>89); GLUCOSE,RANDOM 91 MG/DL (74-106); SODIUM (NA) 138 MEQ/L (136-145)
[2017-07-14 17:16] LABS: TROPONIN I LESS THAN 0.02 NG/ML (0.02-0.05)
--- NOTE | 2017-07-15 19:57 | EKG ---
Date Performed: 07/14/2017 Time Performed: 16:10:05 PTAGE: 76 years EKG: ATRIAL FIBRILLATION NONSPECIFIC T-WAVE ABNORMALITY ABNORMAL RHYTHM ECG Since the PREVIOUS TRACING , no significant change noted PREVIOUS TRACIN11/11/2016@ 0823 DOCTOR: Elier Henderson Interpretating Date/Time 07/15/2017 20:04:16
== END 2017-07-14 17:07 | disposition left against medical advice (07) ==
LOC: NED 13:19
DX: R07.9 Chest pain, unspecified (principal); I48.91 Unspecified atrial fibrillation
CPT/HCPCS: 71046; 80048; 82550; 82552; 84484; 85025; 85610; 93005; 99281

== ENCOUNTER 2017-07-16 08:38 | Emergency (ER) | payer OTHER ==
[~2017-07-16] VITALS: Ht 177.8 cm; Wt 76.0 kg
[2017-07-16 08:45] VITALS: BP 117/69; PULSE 69; RESP 18; TEMP 97.8; O2SAT 98
[2017-07-16] MEDS ORDERED: KETOROLAC TROMETHAMINE 60 MG/2 ML (IM) VIAL IM ONE (09:00)
[2017-07-16] MEDS ORDERED: CYCLOBENZAPRINE HCL 10 MG TAB PO ONE (09:00)
--- NOTE | 2017-07-16 09:44 | RADRPT ---
EXAM DATE/TIME: 07/16/2017 09:09 [facility] COMPARISON: CHEST SINGLE AP, March 30, 2017, 11:09. INDICATIONS : Pain in chest. MEDICAL HISTORY : Hypercholesterolemia. Hypertension AFIB. Coronary artery disease. SURGICAL HISTORY : CABG. Cholecystectomy. ENCOUNTER: Subsequent ACUITY: 1 day PAIN SCORE: 5/10 LOCATION: Bilateral chest FINDINGS: Sternal wires previous bypass. Compensated cardiomegaly. No infiltrate or failure. The portion of t he bony skeleton visualized is unremarkable. CONCLUSION: Compensated cardiomegaly that has progressed in the interval otherwise negative Floyd Evans MD FACR on July 16, 2017 at 9:41 Board Certified Radiologist. This report was verified electronically.
--- NOTE | 2017-07-16 09:45 | RADRPT ---
EXAM DATE/TIME: 07/16/2017 09:13 [facility] COMPARISON: No previous studies available for comparison. INDICATIONS : Pain in pelvic region, no known injuries. MEDICAL HISTORY : Hypertension. Hypercholesterolemia. AFIB. Coronary artery disease. SURGICAL HISTORY : CABG. Cholecystectomy. ENCOUNTER: Initial ACUITY: 1 day PAIN SCORE: 5/10 LOCATION: Pelvis. FINDINGS: A single frontal view of the pelvis demonstrates no evidence of fracture. The bony pelvic ring is in tact. Bony mineralization is normal. The soft tissues are intact. Radiopaque foreign bodies in the pelvis consistent with previous surgery CONCLUSION: Negative for acute process Floyd Evans MD FACR on July 16, 2017 at 9:42 Board Certified Radiologist. This report was verified electronically.
[2017-07-16] MEDS ORDERED: ACETAMINOPHEN/HYDROcodone 325 MG/5 MG TAB PO ONE (10:15)
[2017-07-16 10:20] VITALS: RESP 26
[2017-07-16] MEDS ORDERED: NORC5TAB PO (10:43)
--- NOTE | 2017-07-16 10:43 | PD ---
HPI Chief Complaint: Back/ Neck Pain or Injury Time Seen by Provider: 08:56 Travel History International Travel<30 days: No Contact w/Intl Traveler<30days: No Traveled to known affect area: No History of Present Illness HPI Patient is a 76-year-old male who comes in complaining of shoulder pain and left hip pain. He says this is been going on for the past 2 or 3 weeks. He says that his doctor used to prescribe Percocet for him, but has stopped. He is not taking anything for his pains. He denies any injury. Pain is worse with movement. He was here 2 days ago and had blood drawn, but left before being seen by a provider. Blood work at that time was all within normal limits. Severity is mild. PFSH Past Medical History Hx Anticoagulant Therapy: Yes (UNKNOWN NAME) Atrial Fibrillation: Yes Depression: Yes Cardiovascular Problems: Yes High Cholesterol: Yes Coronary Artery Disease: Yes Diminished Hearing: No Gastrointestinal Disorders: Yes (GALLBLADDER STONES) Glaucoma: Yes (jacobo) Genitourinary: Yes Hypertension: Yes Kidney Stones: Yes Medical other: Yes (KIDNEY STONES) Musculoskeletal: Yes (L KNEE SURGERY) Respiratory: Yes Past Surgical History Abdominal Surgery: Yes (GALLSTONES) Body Medical Devices: NONE PER PT Cardiac Surgery: Yes (CABG ) Coronary Artery Bypass Graft: Yes Genitourinary Surgery: Yes (02/15- SURGERY FOR KIDNEY STONE REMOVAL/URETHERAL STENT PLACEMENT) Other Surgery: Yes Social History Alcohol Use: No (PT DENIES ) Tobacco Use: No (QUIT 38 YEARS AGO) Substance Use: No (PT DENIES) Allergies-Medications (Allergen,Severity, Reaction): Coded Allergies: No Known Allergies (Verified Adverse Reaction, Unknown, 07/16/17) Reported Meds & Prescriptions Reported Meds & Active Scripts Active Colchicine 0.6 Mg Cap 0.6 Mg PO BID Furosemide 20 Mg Tab 20 Mg PO DAILY Norvasc (Amlodipine Besylate) 5 Mg Tab 7.5 Mg PO DAILY Metoprolol Tartrate 25 Mg Tab 12.5 Mg PO Q12HR Flomax (Tamsulosin HCl) 0.4 Mg Cap 0.4 Mg PO DAILY Cozaar (Losartan Potassium) 25 Mg Tab 25 Mg PO DAILY Reported Atorvastatin (Atorvastatin Calcium) 40 Mg Tab 40 Mg PO HS Xarelto (Rivaroxaban) 20 Mg Tab 20 Mg PO DAILY Review of Systems Except as stated in HPI: all other systems reviewed are Neg General / Constitutional: No: Fever, Chills HENT: No: Headaches, Lightheadedness Cardiovascular: No: Chest Pain or Discomfort Respiratory: No: Shortness of Breath Musculoskeletal: Positive: Pain, No: Edema Skin: No Rash, No Change in Pigmentation Neurologic: No: Weakness, Dizziness, Sensory Disturbance Physical Exam Narrative GENERAL: Awake and alert, in no acute distress. SKIN: Focused skin assessment warm/dry. No rashes or signs of infection. HEAD: Atraumatic. Normocephalic. EYES: Pupils equal and round. No scleral icterus. ENT: Mucous membranes pink and moist. NECK: Trachea midline. No JVD. CARDIOVASCULAR: Regular rate and rhythm. No murmur appreciated. RESPIRATORY: No accessory muscle use. Clear to auscultation. Breath sounds equal bilaterally. GASTROINTESTINAL: Abdomen soft, non-tender, nondistended. MUSCULOSKELETAL: No obvious deformities. No clubbing. No cyanosis. No edema. Tender to palpation around both scapula. Pain with movement of both of his arms. NEUROLOGICAL: Awake and alert. No obvious cranial nerve deficits. Motor grossly within normal limits. Normal speech. PSYCHIATRIC: Appropriate mood and affect; insight and judgment normal. Data Data Last Documented VS Vital Signs Date Time Temp Pulse Resp B/P (MAP) Pulse Ox O2 Delivery O2 Flow Rate FiO2 07/16/17 08:52 85 17 07/16/17 08:52 97 Nasal Cannula 2.00 07/16/17 08:45 97.8 117/69 (85) Orders Orders Chest, Single Ap (07/16/17 ) Pelvis, Ap Only (Routine) (07/16/17 ) Ketorolac Inj (Toradol Inj) (07/16/17 09:00) Cyclobenzaprine (Flexeril) (07/16/17 09:00) Acetamin-Hydrocod 325-5 Mg ([place] 5-325 (07/16/17 10:15) MDM Medical Decision Making Medical Screen Exam Complete: Yes Emergency Medical Condition: Yes Medical Record Reviewed: Yes Differential Diagnosis Muscle strain versus arthritis versus chronic pain Narrative Course Patient is a 76-year-old male comes in complaining of shoulder pain and left hip pain. Exam shows pain with movement. X-ray of the pelvis and chest show no acute abnormalities. Patient given pain medicine. He would like a prescription to go home with. Advised follow-up with his doctor. Advised return to the ED as needed for any worsening symptoms. Last 24 hours Impressions Pelvis X-Ray 07/16/17 0000 Signed Impressions: Service Date/Time: Sunday, July 16, 2017 09:13 - CONCLUSION: Negative for acute process Floyd Evans MD FACR Chest X-Ray 07/16/17 0000 Signed Impressions: Service Date/Time: Sunday, July 16, 2017 09:09 - CONCLUSION: Compensated cardiomegaly that has progressed in the interval otherwise negative Floyd Evans MD FACR Diagnosis Primary Impression: Left hip pain Additional Impression: Shoulder pain, bilateral Qualified Codes: M25.511 - Pain in right shoulder; M25.512 - Pain in left shoulder Patient Instructions: General Instructions, Musculoskeletal Pain (ED) Additional Instructions: Take pain medicine as needed. Follow-up with your doctor. Return to the ED as needed for any worsening symptoms. Scripts Hydrocodone-Acetaminophen (Kensett) 5 Mg-325 Mg Tab 1 TAB PO Q6H Y for PAIN, #10 TAB 0 Refills Prov: Aline Kirk MD 07/16/17 Disposition: 01 DISCHARGE HOME Condition: Stable Aline Kirk MD Jul 16, 2017 10:43
[2017-07-16 10:59] VITALS: BP 130/85; TEMP 97.5
== END 2017-07-16 11:01 | disposition home or self-care (01) ==
LOC: NEPE 08:38
DX: M25.552 Pain in left hip (principal); M25.512 Pain in left shoulder; M25.511 Pain in right shoulder; E78.00 Pure hypercholesterolemia, unspecified; I10 Essential (primary) hypertension; I25.10 Atherosclerotic heart disease of native coronary artery without angina pectoris; I48.91 Unspecified atrial fibrillation; Z79.01 Long term (current) use of anticoagulants; Z87.891 Personal history of nicotine dependence
CPT/HCPCS: 71045; 72170; 96372; 99285; J1885

== ENCOUNTER 2017-11-29 11:59 | Observation (INO) ==
[2017-11-29 12:56] LABS: Baso % (Auto) 0.4 % (0.0-2.0); Eos # (Auto) 0.1 th/mm3 (0.0-0.4); Eos % (Auto) 1.3 % (0.0-4.0); Hemoglobin 14.6 gm/dL (13.0-17.0); Lymph % (Auto) 13.8 % (9.0-44.0); Mean Corpuscular HGB Conc 33.9 % (32.0-36.0); Mean Corpuscular Hemoglobin 31.9 pg (27.0-34.0); Mean Corpuscular Volume 93.9 fL (80.0-100.0); Mean Platelet Volume 8.4 fL (7.0-11.0); Mono # (Auto) 0.8 th/mm3 (0.0-0.9); Mono % (Auto) 10.9 % (0.0-8.0); Neut # (Auto) 5.4 th/mm3 (1.8-7.7); Neut % (Auto) 73.6 % (16.0-70.0); Platelet Count 172 th/mm3 (150-450); Red Blood Count 4.58 mil/mm3 (4.50-5.90); Red Cell Distribution Width 16.9 % (11.6-17.2); White Blood Count 7.4 th/mm3 (4.0-11.0)
--- NOTE | 2017-11-29 12:59 | XR ---
EXAM DATE: 11/29/2017 12:57 PM EDT AGE/SEX: 77 years / Male INDICATIONS: . Short of breath. CLINICAL DATA: This is the patient's initial encounter. Patient reports that signs and symptoms have been present for 1 day and indicates a pain score of 0/10. MEDICAL/SURGICAL HISTORY: None. CABG. COMPARISON: [facility] [place]ST [place]LE AP, 07/16/2017. . FINDINGS: Daily, median sternotomy wires are noted. Lungs are clear. Degenerative changes of the spine are pres ent. CONCLUSION: Negative examination. Electronically signed by: Gerard Ramirez MD 11/29/2017 12:57 PM EDT
[2017-11-29 13:17] LABS: Albumin 3.3 g/dL (3.4-5.0); Anion Gap 8 meq/L (5-15); Aspartate Aminotransferase 73 U/L (15-37); Blood Urea Nitrogen 16 mg/dL (7-18); Calcium 8.2 mg/dL (8.5-10.1); Carbon Dioxide 24.1 meq/L (21.0-32.0); Chloride 112 meq/L (98-107); Glomerular Filtration Rate 64 mL/min (>89); Glucose,Random 87 mg/dL (74-106); Potassium 4.3 meq/L (3.5-5.1); Sodium 144 meq/L (136-145)
[2017-11-29 13:23] LABS: Alanine Aminotransferase 71 U/L (12-78); Alkaline Phosphatase 130 U/L (45-117); Total Protein 6.6 g/dL (6.4-8.2)
--- NOTE | 2017-11-29 14:22 | ED ---
HPI General Chief Complaint: Shortness of Breath/Dyspnea Stated Complaint: SOB Time Seen by Provider: 11/29/17 13:48 Source: patient Mode of arrival: ambulatory Limitations: no limitations History of Present Illness 77-year-old male the presents to the ED for evaluation of dyspnea with exertion. Patient reports that he has this for about 3 days now. No history of this in the past. Denies any pain at all. Per patient he states that he does have a history of significant heart disease and had a CABG about a year ago. He has not really sure where he had it and states that he might be done here. He does not remember his management consultant. Patient states that he has no pain but only shortness of breath that comes and goes. Rarely gets worse at night he cannot sleep with it. States that he has to prop himself up. He denies any major swelling. He states that sometimes when he ambulates up though he does not ambulate much with a walker he does get the symptoms as well. Denies any recent travel. He cannot really tell me he takes any blood thinners or not. He does tell me that he takes a blood pressure medication in the morning and BPH medication at night. Patient is E[place]an-speaking only. I offered patient translational services but he declined as he feels comfortable with my E[place]rean. Denies any nausea vomiting or diarrhea. No cough or runny nose. No fevers chills or sweats. Related Data Allergies Allergy/AdvReac Type Severity Reaction Status Date / Time No Known Allergies AdvReac Unknown Uncoded 07/16/17 08:59 Review of Systems ROS: all other systems reviewed are negative [facility] Medical History Medical History HTN (hypertension) (Acute) Prostate disorder (Acute) Social History Social History Substance History: No History of Abuse Second Hand Smoke Exposure: No Smoking Status: Former smoker Tobacco Type: Cigarettes How Often Do You Have a Drink Containing Alcohol: Never Recent Travel in [facility] within the Last 8 Weeks: No Recent Out of Country Travel within the Last 8 Weeks: No Immunization History Tetanus Immunization: <5 Years Hx Influenza Vaccine This Season: No Exam Narrative Exam Narrative: GENERAL: Well appearing SKIN: Focused skin assessment warm/dry. HEAD: Atraumatic. Normocephalic. EYES: Pupils equal and round. No scleral icterus. No injection or drainage. ENT: No nasal bleeding or discharge. Mucous membranes pink and moist. Tongue is midline. No uvula deviation. NECK: Trachea midline. No JVD. CARDIOVASCULAR: Regular rate and rhythm. No murmur appreciated. RESPIRATORY: No accessory muscle use. Clear to auscultation. Breath sounds equal bilaterally. GASTROINTESTINAL: Abdomen soft, non-tender, nondistended. Hepatic and splenic margins not palpable. MUSCULOSKELETAL: No obvious deformities. No clubbing. No cyanosis. No edema. Full ROm of the upper and lower extremities bilaterally. 2+ pulses. NEUROLOGICAL: Awake and alert. No obvious cranial nerve deficits. Motor grossly within normal limits. Normal speech. PSYCHIATRIC: Appropriate mood and affect; insight and judgment normal. Course Initial Documented Vital Signs Temperature 97.2 F L 11/29/17 12:17 Pulse Rate 80 11/29/17 12:17 Respiratory Rate 19 11/29/17 12:17 Blood Pressure 165/121 H 11/29/17 12:17 Pulse Oximetry 95 11/29/17 12:17 Last Documented Vital Signs Temperature 97.2 F L 11/29/17 12:17 Pulse Rate 68 11/29/17 14:14 Respiratory Rate 15 11/29/17 14:14 Blood Pressure 153/103 H 11/29/17 14:14 Pulse Oximetry 97 11/29/17 14:14 Medical Decision Making MDM Narrative Medical decision making narrative: 77-year-old male the presents to the ED for evaluation of dyspnea. Patient was properly examined and was found to have signs and symptoms of unclear etiology. Labs and imaging order. Labs and imaging showed no sign of acute disease. More specifically no sign of anything that could cause the chest pain. Patient does have a history of ACS and is concerning for ACS. Patient states that he has dyspnea with exertion as well as with laying down flat. His been going on for 3 days. Patient overall is not a good historian even in E[place]an as he does not really know his medications or his doctors. I cannot completely rule out that this may be ACS equivalent. My attending Dr Kirk was made aware of finding and labs and agrees to admit for Chest pain center for dyspnea on exertion. Patient agrees with this. Medical Screen Exam Complete: Yes Emergency Medical Condition: Yes Differential Diagnosis Differential Diagnosis: CHF exacerbation versus PE versus dyspnea on exertion versus ACS Medical Records Medical records reviewed: Yes I reviewed the patient's medical records. Lab Data Lab results reviewed: Yes I reviewed the patient's lab results. Lab results narrative: troponin negative Result diagrams: 11/29/17 12:44 11/29/17 12:44 Lab Results 11/29/17 11/29/17 11/29/17 Range/Units 12:14 12:44 12:44 WBC 7.4 (4.0-11.0) th/mm3 RBC 4.58 (4.50-5.90) mil/mm3 Hgb 14.6 (13.0-17.0) gm/dL Hct 43.0 (39.0-51.0) % MCV 93.9 (80.0-100.0) fL MCH 31.9 (27.0-34.0) pg MCHC 33.9 (32.0-36.0) % RDW 16.9 (11.6-17.2) % Plt Count 172 (150-450) th/mm3 MPV 8.4 (7.0-11.0) fL Neut % (Auto) 73.6 H (16.0-70.0) % Lymph % (Auto) 13.8 (9.0-44.0) % [place] % (Auto) 10.9 H (0.0-8.0) % Eos % (Auto) 1.3 (0.0-4.0) % Baso % (Auto) 0.4 (0.0-2.0) % Neut # (Auto) 5.4 (1.8-7.7) th/mm3 Lymph # (Auto) 1.0 (1.0-4.8) th/mm3 [place] # (Auto) 0.8 (0.0-0.9) th/mm3 Eos # (Auto) 0.1 (0.0-0.4) th/mm3 Baso # (Auto) 0.0 (0.0-0.2) th/mm3 WBC Differential . Differential Comment Auto diff final Sodium 144 (136-145) meq/L Potassium 4.3 (3.5-5.1) meq/L Chloride 112 H (98-107) meq/L Carbon Dioxide 24.1 (21.0-32.0) meq/L Anion Gap 8 (5-15) meq/L BUN 16 (7-18) mg/dL Creatinine 1.11 (0.60-1.30) mg/dL Estimated GFR 64 L (>89) mL/min Random Glucose 87 (74-106) mg/dL Calcium 8.2 L (8.5-10.1) mg/dL Total Bilirubin 1.2 H (0.2-1.0) mg/dL AST 73 H (15-37) U/L ALT 71 (12-78) U/L Alkaline Phosphatase 130 H (45-117) U/L Troponin I Less than 0.02 L (0.02-0.05) ng/mL B-Natriuretic Peptide 321 H (0-100) pg/mL Total Protein 6.6 (6.4-8.2) g/dL Albumin 3.3 L (3.4-5.0) g/dL Imaging Data Attestation: I personally reviewed and interpreted this imaging study as follows : Radiologist's impression: Chest X-Ray 11/29/17 12:30 CONCLUSION: Negative examination. Chest CTA 11/29/17 14:00 CONCLUSION: 1. No evidence for pulmonary embolism. 2. Noncalcified left upper lobe pulmonary nodule. Six-month follow-up CT chest recommended. 3. Atherosclerosis. ECG Data EKG Prior to Arrival: No Attestation: I personally reviewed and interpreted this ECG as follows: Interpretation: EKG shows sinus rhythm with no sign of acute ischemia or arrythmia read by me and attending. Discharge Plan Discharge Disposition Patient Disposition: 30 Still Patient Discharge Details Diagnosis: Chest pain Physicians Team ED Provider: Aline Kirk ED Midlevel Provider: Ismael Lyons Primary Care Provider: Primary Care Brianda Neves Attending Provider: Ursula Crum Status ED Status: Admitted Observation Patient
--- NOTE | 2017-11-29 15:53 | CT ---
EXAM DATE: 11/29/2017 3:44 PM EDT AGE/SEX: 77 years / Male INDICATIONS: Shortness of breath with intermittent chest pain. CLINICAL DATA: This is the patient's initial encounter. Patient reports that signs and symptoms have been present for 3 days and indicates a pain score of 3/10. MEDICAL/SURGICAL HISTORY: Hypertension. Prostate disorder. CABG. RADIATION DOSE: 10.60 CTDI (mGy) COMPARISON: [facility] [place], CHEST 2V PA&LAT, 11/29/2017. [facility] [place], CT PULMONARY ANGIOGRAM, 11/11/2016. . TECHNIQUE: Volumetric scanning was performed using a multi-row detector CT scanner during bolus infu allison of 75 ml Omnipaque 350 (iohexol) nonionic water-soluble contrast as a single exam dose. The ligia a was post processed with a variety of visualization algorithms including full volume maximum intensi ty projection and sliding thin slab reformation. Using automated exposure control and adjustment of the mA and/or kV according to patient size, radiation dose was kept as low as reasonably achievable t o obtain optimal diagnostic quality images. DICOM format image data is available electronically for review and comparison. FINDINGS: There is cardiomegaly. No evidence for pulmonary embolus. Noncalcified left upper lobe 4.8 mm nodule. No adenopathy or aneurysm. Coronary artery calcification is seen. No pleural or pericardial effusion s. CONCLUSION: 1. No evidence for pulmonary embolism. 2. Noncalcified left upper lobe pulmonary nodule. Six-month follow-up CT chest recommended. 3. Atherosclerosis. Electronically signed by: Gerard Ramirez MD 11/29/2017 3:52 PM EDT
[2017-11-29] MEDS ORDERED: Aspirin 325 MG Tablet PO ONE (16:45)
--- NOTE | 2017-11-29 17:11 | P.HPCA ---
History of Present Illness Primary Care Physician: No Primary Care Physician Chief Complaint: Dyspnea on exertion History of Present Illness: This is a 77-year-old [place]-speaking male that presents to ED that is a poor historian with history of CAD with a single-vessel bypass June [address] Javier that presents to ED with complaint of dyspnea at rest and even more so with exertion. Patient preferred [place]-speaking employee versus [employer]. States he has oxygen to use at night and it does help. Denies chest discomfort. Denies history of congestive heart failure. Denies recent weight gain. Has not noticed swelling in his extremities. States he has seen a elevator erector helper at [facility] but cannot recall which elevator erector helper. States he takes a blood pressure medicine, heart medicine, and a cholesterol medicine but cannot recall the names. He is in A. fib and reviewing records he was in A. fib prior. Does not know taking any blood thinning medicine. Patient has history of hypertension, hyperlipidemia, CAD status post single- vessel bypass, atrial fibrillation. Quit smoking 30 years ago. Family history of CAD. - Diagnosis (1) Dyspnea on exertion (2) Hypertension (3) CAD (coronary artery disease) (4) Status post coronary artery bypass graft (5) Lung nodule Review of Systems General: Patient denies fevers, chills, and recent travel. HEENT: Patient denies headache, sore throat, difficulty swallowing. Cardiovascular: Has the chest discomfort as mentioned above. Denies sensation of heart beating rapidly or irregularly. No syncope. Denies diaphoresis. Respiratory: Complains of dyspnea and even more so dyspnea with exertion. Denies inspirational chest discomfort. Denies coughing wheezing or hemoptysis. GI: Patient denies nausea, vomiting, diarrhea, abdominal pain, bloody stools. Musculoskeletal: Patient denies joint pain or edema. Denies calf pain or edema. Neurovascular: Patient denies numbness, tingling, weakness in extremities. Denies headache. Endocrine: Denies polyuria and polydipsia. Hematologic: Denies easy bruising. Skin: Denies rash or itching. PMFSH - History History Provided By: Patient - Medical History Medical History: Medical History (Last Reviewed 11/29/17 @ 14:20 by PATRICIA Helton) HTN (hypertension) Prostate disorder - Tobacco History Second Hand Smoke Exposure: No Tobacco Use In Past 30 Days: No Smoking Status: Former smoker Tobacco Type: Cigarettes - Alcohol History How Often Do You Have a Drink Containing Alcohol: Never - Substance Use History Substance History: No History of Abuse - Travel History Recent Travel in the [place] Within the Last 8 Weeks: No Recent Travel Out of the Country Within the Last 8 Weeks: No - Immunization History Tetanus Immunization: <5 Years Hx Influenza Vaccine This Season: No Medications and Allergies Active Medications: Active Medications Hydrocodone Bitart/Acetaminophen ([place] 7.5/325) 1 tab PO Q6H PRN PRN Reason: pain scale 6-10 Albuterol (Duoneb Neb (Prn)) 1 ampul NEB Q4HR NEB PRN PRN Reason: SHORTNESS OF BREATH/WHEEZING Aspirin (Aspirin) 325 mg PO DAILY KEAGAN Clonidine HCl (Catapres) 0.1 mg PO Q6H PRN PRN Reason: SBP >165 OR DBP > 110 Lisinopril (Prinivil) 10 mg PO DAILY KEAGAN Ondansetron HCl (Zofran Inj) 4 mg IV.PUSH Q6H PRN PRN Reason: NAUSEA Pantoprazole Sodium (Protonix) 40 mg PO DAILY KEAGAN Sodium Chloride (Ns Flush) 2 ml IV.FLUSH BID KEAGAN Sodium Chloride (Ns Flush) 2 ml IV.FLUSH PRN PRN PRN Reason: FLUSH AFTER USING IV ACCESS Allergies Allergy/AdvReac Type Severity Reaction Status Date / Time No Known Allergies AdvReac Unknown Uncoded 07/16/17 08:59 Exam Vital signs: Vital Signs 11/29/17 12:17 11/29/17 14:13 11/29/17 14:14 Temperature 97.2 F L Pulse Rate 80 68 Respiratory Rate 19 15 Blood Pressure 165/121 H 153/103 H Pulse Oximetry 95 97 97 Intake & Output 11/28/17 11/29/17 11/29/17 18:59 06:59 18:59 Weight 81.647 kg Narrative: GENERAL: This is a well-nourished, well-developed patient, in no apparent distress. Patient speaks in clear complete sentences. Patient is pleasant. HEENT: Head is atraumatic and normocephalic. Neck is supple without lymphadenopathy and trachea is midline. No JVD or carotid bruits. CARDIOVASCULAR: Irregularly irregular rate and rhythm without murmurs, gallops, or rubs. RESPIRATORY: Well-healed midline scar from prior sternotomy. Breath sounds equal bilaterally. Mild expiratory wheezing. No rales or rhonchi. Chest wall is nontender. No use of accessory muscles. GASTROINTESTINAL: Abdomen is nontender, nondistended. Abdomen soft. No obvious pulsatile mass or bruit. No CVA tenderness. Strong femoral pulses bilaterally. Normal bowel sounds in all quadrants. MUSCULOSKELETAL: Patient is moving upper and lower extremities freely. No calf tenderness or edema, no Homans sign. Strong pulses in upper and lower extremities. NEUROLOGICAL: Patient is alert and oriented. Cranial nerves 2-12 are grossly intact. No focal deficits and speech is clear. SKIN: No rash and turgor is normal. Results 11/29/17 12:44 11/29/17 12:44 Cardiac Enzymes 11/29/17 11/29/17 Range/Units 12:14 12:44 AST 73 H (15-37) U/L Troponin I Less than 0.02 L (0.02-0.05) ng/mL B-Natriuretic Peptide 321 H (0-100) pg/mL Coagulation 11/29/17 Range/Units 12:14 B-Natriuretic Peptide 321 H (0-100) pg/mL CBC 11/29/17 Range/Units 12:44 WBC 7.4 (4.0-11.0) th/mm3 RBC 4.58 (4.50-5.90) mil/mm3 Hgb 14.6 (13.0-17.0) gm/dL Hct 43.0 (39.0-51.0) % Plt Count 172 (150-450) th/mm3 Neut # (Auto) 5.4 (1.8-7.7) th/mm3 Lymph # (Auto) 1.0 (1.0-4.8) th/mm3 [place] # (Auto) 0.8 (0.0-0.9) th/mm3 Eos # (Auto) 0.1 (0.0-0.4) th/mm3 Baso # (Auto) 0.0 (0.0-0.2) th/mm3 Comprehensive Metabolic Panel 11/29/17 Range/Units 12:44 Sodium 144 (136-145) meq/L Potassium 4.3 (3.5-5.1) meq/L Chloride 112 H (98-107) meq/L Carbon Dioxide 24.1 (21.0-32.0) meq/L BUN 16 (7-18) mg/dL Creatinine 1.11 (0.60-1.30) mg/dL Calcium 8.2 L (8.5-10.1) mg/dL AST 73 H (15-37) U/L ALT 71 (12-78) U/L Alkaline Phosphatase 130 H (45-117) U/L Total Protein 6.6 (6.4-8.2) g/dL Albumin 3.3 L (3.4-5.0) g/dL Intake and Output 11/29/17 11/29/17 11/29/17 06:59 14:59 22:59 Other: Weight 81.647 kg Patient Weight 11/30/17 06:59 Weight 81.647 kg EKG interpretations - Dysrhythmias Supraventricular dysrhythmia: atrial fibrillation (EKG is A. fib, rate controlled.) Caprini VTE Risk Assessment Caprini VTE Risk Assessment: Moderate/High Risk (score >= 2) Caprini Risk Assessment Model: Point Value = 1 Point Value = 2 Point Value = 3 Point Value = 5 Age 41-60 Minor surgery BMI > 25 kg/m2 Swollen legs Varicose veins or History of unexplained or recurrent spontaneous Oral contraceptives or hormone replacement Sepsis (< 1 month) Serious lung disease, including pneumonia (< 1 month) Abnormal pulmonary function Acute myocardial infarction Congestive heart failure (< 1 month) History of inflammatory bowel disease Medical patient at bed rest Age 61-74 Arthroscopic surgery Major open surgery (> 45 min) Laparoscopic surgery (> 45 min) Malignancy Confined to bed (> 72 hours) Immobilizing plaster cast Central venous access Age >= 75 History of VTE Family history of VTE Factor V Leiden Prothrombin [id number] Lupus anticoagulant Anticardiolipin antibodies Elevated serum homocysteine Heparin-induced thrombocytopenia Other congenital or acquired thrombophilia Stroke (< 1 month) Elective arthroplasty Hip, pelvis, or leg fracture Acute spinal cord injury (< 1 month) Prophylaxis Regimen: Total Risk Factor Score Risk Level Prophylaxis Regimen 0-1 Low Early ambulation 2 Moderate Order ONE of the following: *Sequential Compression Device (SCD) *Heparin 5000 units SQ BID 3-4 Higher Order ONE of the following medications: *Heparin 5000 units SQ TID *Enoxaparin/Lovenox 40 mg SQ daily (WT < 150 kg, CrCl > 30 mL/min) *Enoxaparin/Lovenox 30 mg SQ daily (WT < 150 kg, CrCl > 10-29 mL/min) *Enoxaparin/Lovenox 30 mg SQ BID (WT < 150 kg, CrCl > 30 mL/min) AND/OR *Sequential Compression Device (SCD) 5 or more Highest Order ONE of the following medications: *Heparin 5000 units SQ TID (Preferred with Epidurals) *Enoxaparin/Lovenox 40 mg SQ daily (WT < 150 kg, CrCl > 30 mL/min) *Enoxaparin/Lovenox 30 mg SQ daily (WT < 150 kg, CrCl > 10-29 mL/min) *Enoxaparin/Lovenox 30 mg SQ BID (WT < 150 kg, CrCl > 30 mL/min) AND *Sequential Compression Device (SCD) Assessment and Plan - Assessment (1) Dyspnea on exertion Code(s): R06.09 - Other forms of dyspnea Status: Acute (2) Hypertension Code(s): I10 - Essential (primary) hypertension Status: Acute (3) CAD (coronary artery disease) Code(s): I25.10 - Atherosclerotic heart disease of [place] coronary artery without angina pectoris Status: Acute (4) Status post coronary artery bypass graft Code(s): Z95.1 - Presence of aortocoronary bypass graft Status: Acute (5) Lung nodule Code(s): R91.1 - Solitary pulmonary nodule Status: Acute - Plan * Dyspnea on exertion: Patient denies chest pain. He was seen by Dr. Crum of cardiology in the [facility] [place]. He is a poor historian. Cannot recall any medications or much of his past medical history. He can recall the symptoms that brought him to the ED but really not much more specific than that. We were unable to get a medication list. Unable to determine if he is on a blood thinner for his A. fib. This was discussed with Dr. Crum. Will hold at this time as we are not sure of his medical history, med list, or if there are contraindication for this. He states [facility] but cannot recall the elevator erector helper. We will need to call the office in the morning get a medication list and discuss him with his elevator erector helper which would be very helpful. May have some mild failure component, will give a low dose Lasix IV 1. Patient likely will have a Lexiscan in the morning. * A. fib: He was in A. fib on prior visit. Rate is controlled at this time. Really not sure of his medications that he should be taking. At this time after discussing with Dr. Crum, patient will not be started on anticoagulation medication. This be further discussed with his elevator erector helper in the morning. * Hypertension: We will start lisinopril as we do not know the medication he should be taking. Continue to monitor. * Hyperlipidemia: We will hopefully get his list and will continue medication tomorrow. * History of CAD: Patient will need follow-up with elevator erector helper. * Lung nodule: Lung nodule seen on CT. Recommend follow-up CT in 6 months. Patient is stable at this time. He is agreeable to this plan.
[2017-11-29] MEDS: Lisinopril 10 MG Tablet PO SCH (18:36)
[2017-11-29 20:28] LABS: Creatine Kinase 103 U/L (39-308)
--- NOTE | 2017-11-29 20:32 | ECG ---
Date Performed: 11/29/2017 Time Performed: 12:33:04 PTAGE: 77 years EKG: ATRIAL FIBRILLATION MINIMAL VOLTAGE CRITERIA FOR LVH, CONSIDER NORMAL VARIANT ABNORMAL RHYT HM ECG Since PREVIOUS TRACING , no significant change noted PREVIOUS TRACIN07/14/2017 16.10 DOCTOR: Ursula Crum Interpretating Date/Time 11/29/2017 20:30:39
[2017-11-29 20:44] LABS: Creatine Kinase MB 3.2 ng/mL (0.5-3.6)
[2017-11-30 02:44] LABS: Creatine Kinase 92 U/L (39-308)
[2017-11-30 08:13] VITALS: BP 163/101; PULSE 80; RESP 20; TEMP 97.6; O2SAT 95
--- NOTE | 2017-11-30 08:15 | P.PNCA ---
Subjective Interval history: Use of [employer] interpretation service utilized, patient [place]er-speaking only. Continues to deny any chest pain. States he slept well and breathing much improved. Requesting his blood pressure medication. 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 Questions if we could assist him in repairing machine. Denies required oxygen during the day, however he does take oxygen tank with him when leaving the house. Physical Exam Vital signs: Vital Signs 11/29/17 12:17 11/29/17 14:13 11/29/17 14:14 Temperature 97.2 F L Pulse Rate 80 68 Respiratory Rate 19 15 Blood Pressure 165/121 H 153/103 H Pulse Oximetry 95 97 97 11/29/17 18:50 11/29/17 20:00 11/29/17 23:41 Temperature 98.1 F 97.7 F 97.7 F Pulse Rate 88 90 63 Respiratory Rate 21 19 Blood Pressure 157/98 H 165/97 H 180/89 H Pulse Oximetry 94 L 92 L 89 L 11/30/17 03:56 11/30/17 08:00 Temperature 98.1 F 97.6 F Pulse Rate 83 80 Respiratory Rate 22 20 Blood Pressure 161/84 H 163/101 H Pulse Oximetry 98 95 Intake & Output 11/29/17 11/30/17 11/30/17 18:59 06:59 18:59 Intake Total 0 / 0 Balance 0 / 0 Weight 81.647 kg 81.647 kg Intake: Oral 0 / 0 Other: # Voids 2 Weight On Admission 81.647 kg Narrative: elderly [place]er-speaking male in no acute distress. - Constitutional no acute distress - Routine HEENT Exam Head: Present: normocephalic, atraumatic - Routine Respiratory Exam Present: decreased breath sounds. Absent: rhonchi, stridor, wheezes, crackles Assessment and Plan - Assessment (1) Dyspnea on exertion Code(s): R06.09 - Other forms of dyspnea Status: Acute Plan: Dyspnea improved, stating discomfort improved once wheezing improved. Spo2 maintained. Will discuss with catalytic case operator to determine if we can assist him with repair of oxygen tank. (2) Hypertension Code(s): I10 - Essential (primary) hypertension Status: Acute Plan: Obtained medication list from patient's electro mechanical technologist. Continue losartan and metoprolol once updated in patient's home medication list. (3) CAD (coronary artery disease) Code(s): I25.10 - Atherosclerotic heart disease of [place] coronary artery without angina pectoris Status: Acute Plan: Proceed with Lexiscan this a.m. Patient's electro mechanical technologist is Dr. Camacho, discussed with Dr. Camacho. Okay to proceed with planned Lexiscan this morning. Medication list obtained from last electro mechanical technologist appointment. Medication list will be updated by RN. (4) Status post coronary artery bypass graft Code(s): Z95.1 - Presence of aortocoronary bypass graft Status: Acute (5) Lung nodule Code(s): R91.1 - Solitary pulmonary nodule Status: Acute Plan: CT scan results will be given upon discharge and reinforce follow up ct scan in 6 months, follow up with PCP. - Plan * Dyspnea on exertion: Patient denies chest pain. He was seen by Dr. Crum of cardiology in the [facility]. He is a poor historian. Cannot recall any medications or much of his past medical history. He can recall the symptoms that brought him to the ED but really not much more specific than that. We were unable to get a medication list. Unable to determine if he is on a blood thinner for his A. fib. This was discussed with Dr. Crum. Will hold at this time as we are not sure of his medical history, med list, or if there are contraindication for this. He states [facility] but cannot recall the electro mechanical technologist. We will need to call the office in the morning get a medication list and discuss him with his electro mechanical technologist which would be very helpful. May have some mild failure component, will give a low dose Lasix IV 1. Patient likely will have a Lexiscan in the morning. * A. fib: He was in A. fib on prior visit. Rate is controlled at this time. Really not sure of his medications that he should be taking. At this time after discussing with Dr. Crum, patient will not be started on anticoagulation medication. This be further discussed with his electro mechanical technologist in the morning. * Hypertension: We will start lisinopril as we do not know the medication he should be taking. Continue to monitor. * Hyperlipidemia: We will hopefully get his list and will continue medication tomorrow. * History of CAD: Patient will need follow-up with electro mechanical technologist. * Lung nodule: Lung nodule seen on CT. Recommend follow-up CT in 6 months. Patient is stable at this time. He is agreeable to this plan. (2) Hypertension Qualifiers: Hypertension type: unspecified Qualified Code(s): I10 - Essential (primary) hypertension (3) CAD (coronary artery disease) Qualifiers: Coronary Disease-Associated Artery/Lesion type: bypass graft [place] vs. transplanted heart: [place] heart Associated angina: angina presence unspecified Qualified Code(s): I25.810 - Atherosclerosis of coronary artery bypass graft(s) without angina pectoris
[2017-11-30] MEDS ORDERED: Aspirin 325 MG Tablet PO SCH (09:00)
[2017-11-30] MEDS ORDERED: amLODIPine 5 MG Tablet PO ONE (10:00)
[2017-11-30] MEDS ORDERED: Rivaroxaban 20 MG Tablet PO SCH (10:15)
[2017-11-30] MEDS: Lisinopril 10 MG Tablet PO SCH (10:19)
[2017-11-30] MEDS ORDERED: Regadenoson Inj 0.4 MG/5 ML Syringe IV.PUSH ONE (11:57)
--- NOTE | 2017-11-30 14:11 | NM ---
EXAM DATE: 11/30/2017 1:34 PM EDT AGE/SEX: 77 years / Male INDICATIONS:Angina. Atrial fibrillation Chest pain and dyspnea. CLINICAL DATA: This is the patient's initial encounter. Patient reports that signs and symptoms have been present for 1 day and indicates a pain score of 2/10. MEDICAL/SURGICAL HISTORY: Hypertension. None. COMPARISON: [facility] [place], [place] CAROTID ARTERIES, 06/09/2016. . DOSE: 8.5 mCi Tc 99m Myoview at rest 26.2 mCi [id number] at stress 0.4 mg Lexiscan STRESS SYMPTOMS: None. EJECTION FRACTION: 50 % TECHNIQUE: The patient underwent pharmacologic stress with infusion of prescribed dose. Continuous ECG tracing was monitored during stress. Gated SPECT imaging was performed after stress and conventi onal SPECT imaging was performed at rest. The examination was performed on a SPECT/CT scanner, both attenuation and non-corrected datasets were reviewed. FINDINGS: Distribution: The maximum perfused segment at stress is in the septal wall. Perfusion Study: The pattern of perfusion at stress is within normal limits. Focal fixed decrease d uptake in the mid apical wall. Gated Study: Hypokinesia of the septal wall. The ejection fraction is calculated at 50%. RISK CATEGORY: Low (<1% Annual Motality Rate) CONCLUSION: 1. Focal fixed defect in the mid apical wall may reflect apical thinning. 2. No definitive evidence for stress-induced ischemia. 3. Septal hypokinesia with EF of 50%. Electronically signed by: Yuval Omer MD 11/30/2017 2:09 PM EDT
--- NOTE | 2017-11-30 15:37 | ECG ---
Date Performed: 11/29/2017 Time Performed: 18:53:23 PTAGE: 77 years EKG: ATRIAL FIBRILLATION ABNORMAL RHYTHM ECG PREVIOUS TRACING : 11/29/2017 12.33 Since previous tracing, no significant change noted DOCTOR: Ilir Mckee Interpretating Date/Time 11/30/2017 15:36:49
--- NOTE | 2017-11-30 15:37 | ECG ---
Date Performed: 11/29/2017 Time Performed: 21:23:39 PTAGE: 77 years EKG: ATRIAL FIBRILLATION MINIMAL VOLTAGE CRITERIA FOR LVH, CONSIDER NORMAL VARIANT ABNORMAL RHYT HM ECG PREVIOUS TRACING : 11/29/2017 18.53 Since previous tracing, no significant change noted DOCTOR: Ilir Mckee Interpretating Date/Time 11/30/2017 15:36:38
--- NOTE | 2017-11-30 15:37 | ECG ---
Date Performed: 11/30/2017 Time Performed: 00:14:18 PTAGE: 77 years EKG: ATRIAL FIBRILLATION VOLTAGE CRITERIA FOR LVH ABNORMAL ECG NO PREVIOUS TRACING DOCTOR: Ilir Mckee Interpretating Date/Time 11/30/2017 15:36:12
--- NOTE | 2017-11-30 15:40 | TR ---
Date Performed: 11/30/2017 Time Performed: 11:59:19 DOCTOR: Ilir Mckee DRUG LIST: CLINICAL HISTORY: REASON FOR TEST: REASON FOR ENDING: OBSERVATION: CONCLUSION: COMMENTS: Lexiscan stress test was performed under standard four minute protocol. Radionuclide was injected one minute prior to ending the test. No electrocardiographic abormalities were present t o suggest ischemia. Nuclear imaging and interpretation are pending.
== END 2017-11-30 15:44 | disposition home or self-care (01) ==
LOC: NEPC 11:59 → NEDA 11:59 → NEPHCDU 18:16
PROVIDERS: ADMIT Internal Medicine Interventional Cardiology; ATTEND Internal Medicine Interventional Cardiology